=== PATIENT | female | born 1985 | race Caucasian/White ===

== ENCOUNTER 2016-04-24 19:15 | Emergency (ER) | payer OTHER ==
[2016-04-24 19:36] VITALS: BP 105/71; PULSE 78; TEMP 98; BMI 18.9
--- NOTE | 2016-04-24 19:55 | PDOC ---
History of Present Illness - History of Present Illness Initial Comments: 04/24/16 20:38 The patient is a 30 year old 8 week female with a past medical hx of Endometriosis, celiac, GERD, asthma, and anxiety who presents to the ED complaining of nausea and vomiting. The patient states she is experiencing associated vaginal bleeding and constipation. She states she has not seen her OB /EYELET MAKER for this . The patient denies fever, chills The patient denies diarrhea The patient denies chest pain, SOB Allergies:NKDA Social:No tobacco use reported PCP: Dr. Dorman Surgical: Intussusception <Savanna Tompkins - Last Filed: 04/24/16 22:59> <Jaky Hanson - Last Filed: 04/24/16 23:18> - General Chief Complaint: Vaginal Bleeding Stated Complaint: VAGINAL BLEEDING/8 WKS Time Seen by Provider: 04/24/16 19:54 Past History <Savanna Tompkins - Last Filed: 04/24/16 22:59> - Past Medical History Anemia: Yes Asthma: Yes Diabetes: No GI Disorders: Yes (irritable bowel syndrome) Disorders: Yes (endometriosis) HTN: No Hypercholesterolemia: No Psychiatric Problems: Yes (ANXIETY.) Suicide Attempt (Hx): No - Surgical History Abdominal Surgery: Yes (intecessuption) Appendectomy: Yes - Reproductive History Endometriosis: Yes - Immunization History Td Vaccination: No Immunization Up to Date: Yes - Psycho/Social/Smoking Cessation Hx Anxiety: Yes Suicidal Ideation: No Smoking Status: Yes Smoking History: Current every day smoker Have you smoked in the past 12 months: No Number of Cigarettes Smoked Daily: 5 Information on smoking cessation initiated: Yes 'Breaking Loose' booklet given: 04/24/16 Hx Alcohol Use: No Drug/Substance Use Hx: No Substance Use Type: None Hx Substance Use Treatment: No <Jaky Hanson - Last Filed: 04/24/16 23:18> - Past Medical History Allergies/Adverse Reactions: Allergies Allergy/AdvReac Type Severity Reaction Status Date / Time No Known Allergies Allergy Verified 04/24/16 19:30 Home Medications: Ambulatory Orders Paroxetine HCl [Paxil -] 40 mg PO DAILY 10/29/13 Ondansetron [Zofran -] 8 mg PO TID 02/10/14 Alprazolam [Xanax] 2 mg PO TID 12/29/14 Oxycodone HCl/Acetaminophen [Percocet 10-325 mg Tablet] 1 - 2 tab PO QID PRN Metoclopramide HCl [Reglan -] 10 mg PO TID #21 tablet 05/23/15 Albuterol Sulfate Inhaler - [Ventolin HFA Inhaler -] 1 - 2 inh PO QID PRN #1 inhaler 05/27/15 Magnesium Oxide [Mag-Ox -] 400 mg PO BID #20 tablet 04/11/16 Nicotine Patch [Nicoderm Patch -] 21 mg TD DAILY #30 patch 04/11/16 Cephalexin Monohydrate [Keflex -] 500 mg PO BID #10 capsule 04/24/16 Abd/GI Specific PMHX - Complaint Specific PMHX Irritable Bowel Synd (IBS): Yes <Jaky Hanson - Last Filed: 04/24/16 23:18> Review of Systems - Review of Systems Able to Perform ROS?: Yes Comments:: 04/24/16 20:38 CONSTITUTIONAL: Absent: fever, chills, diaphoresis, generalized weakness, malaise, loss of appetite HEENT: Absent: rhinorrhea, nasal congestion, throat pain, throat swelling, difficulty swallowing, mouth swelling, ear pain, eye pain, visual Changes CARDIOVASCULAR: Absent: chest pain, syncope, palpitations, irregular heart rate, lightheadedness , peripheral edema RESPIRATORY: Absent: cough, shortness of breath, dyspnea with exertion, orthopnea, wheezing, stridor, hemoptysis GASTROINTESTINAL: +nausea, vomiting, constipation. Absent: abdominal pain, abdominal distension, diarrhea, melena, hematochezia GENITOURINARY +vaginal bleeding: Absent: dysuria, frequency, urgency, hesitancy, hematuria, flank pain, genital pain MUSCULOSKELETAL: Absent: myalgia, arthralgia, joint swelling SKIN: Absent: rash, itching, pallor HEMATOLOGIC/IMMUNOLOGIC: Absent: easy bleeding, easy bruising, lymphadenopathy, frequent infections ENDOCRINE: Absent: unexplained weight gain, unexplained weight loss, heat intolerance, cold intolerance NEUROLOGIC: Absent: headache, focal weakness or paresthesias, dizziness, unsteady gait, seizure, mental status changes, bladder or bowel incontinence PSYCHIATRIC: Absent: anxiety, depression, suicidal or homicidal ideation, hallucinations <Savanna Tompkins - Last Filed: 04/24/16 22:59> *Physical Exam - Vital Signs Last Vital Signs Temp Pulse Resp BP Pulse Ox 98 F 78 18 105/71 100 04/24/16 19:31 04/24/16 19:31 04/24/16 19:31 04/24/16 19:31 04/24/16 19:31 - Physical Exam Comments: 04/24/16 22:59 GENERAL: Well developed, well nourished. Awake and alert. No acute distress. HEENT: Normocephalic, atraumatic. PERRLA, EOMI. No conjunctival pallor. Sclera are non- icteric. Moist mucous membranes. Oropharynx is clear. NECK: Supple. Full ROM. No JVD. Carotid pulses 2+ and symmetric, without bruits. No thyromegaly. No lymphadenopathy. CARDIOVASCULAR: Regular rate and rhythm. No murmurs, rubs, or gallops. Distal pulses are 2+ and symmetric. PULMONARY: No evidence of respiratory distress. Lungs clear to auscultation bilaterally. No wheezing, rales or rhonchi. ABDOMINAL: Soft. Non-tender. Non-distended. No rebound or guarding. No organomegaly. Normoactive bowel sounds. MUSCULOSKELETAL Normal range of motion at all joints. No bony deformities or tenderness. No CVA tenderness. EXTREMITIES: No cyanosis. No clubbing. No edema. No calf tenderness. SKIN: Warm and dry. Normal capillary refill. No rashes. No jaundice. NEUROLOGICAL: Alert, awake, appropriate. Cranial nerves 2-12 intact. No deficits to light touch and temperature in face, upper extremities and lower extremities. No motor deficits in the in face, upper extremities and lower extremities. Normoreflexic in the upper and lower extremities. Normal speech. PSYCHIATRIC: Cooperative. Good eye contact. Appropriate mood and affect. <Savanna Tompkins - Last Filed: 04/24/16 22:59> - Vital Signs Last Vital Signs Temp Pulse Resp BP Pulse Ox 98 F 78 18 105/71 100 04/24/16 19:31 04/24/16 19:31 04/24/16 19:31 04/24/16 19:31 04/24/16 19:31 <Jaky Hanson - Last Filed: 04/24/16 23:18> ED Treatment Course - LABORATORY CBC & Chemistry Diagram: 04/24/16 20:00 04/24/16 20:00 - ADDITIONAL ORDERS Additional order review: Laboratory Results 04/24/16 20:10 Urine Color Yellow Urine Appearance Slcloudy Urine pH 5.0 Ur Specific Barton 1.024 Urine Protein 1+ H Urine Glucose (UA) Negative Urine Ketones Negative Urine Blood 3+ H Urine Nitrite Negative Urine Bilirubin Negative Urine Urobilinogen Negative Ur Leukocyte Esterase Negative Urine RBC 2557 Urine WBC 18 Ur Epithelial Cells Moderate Urine Mucus Rare 04/24/16 20:00 RBC 4.40 MCV 73.4 L MCHC 31.7 L RDW 19.6 H MPV 8.5 Neutrophils % 55.5 D Lymphocytes % 35.2 D Monocytes % 7.3 Eosinophils % 1.7 Basophils % 0.3 - Medications Given in the ED: ED Medications Discontinued Medications Generic Name Dose Route Start Last Admin Trade Name Freq PRN Reason Stop Dose Admin Ondansetron HCl 4 mg 04/24/16 20:04 04/24/16 20:13 Zofran Injection IVPUSH 04/24/16 20:05 4 mg ONCE ONE Administration <Savanna Tompkins - Last Filed: 04/24/16 22:59> - LABORATORY CBC & Chemistry Diagram: 04/24/16 20:00 04/24/16 20:00 <Jaky Hanson - Last Filed: 04/24/16 23:18> Medical Decision Making - Medical Decision Making 04/24/16 23:17 IV IUP 8 weeks 2 days, heart rate 160 <Jaky Hanson - Last Filed: 04/24/16 23:18> *DC/Admit/Observation/Transfer - Attestations Scribe Attestion: 04/24/16 20:39 Documentation prepared by Savanna Tompkins, acting as medical secretary for Jaky Hanson MD/DO. 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
[2016-04-24] MEDS ORDERED: SODIUM CHLORIDE 1,000 ML IV STA (20:03)
[2016-04-24] MEDS ORDERED: ONDANSETRON 4 MG/2 ML VIAL IVPUSH ONE (20:04)
[2016-04-24 20:20] LABS: BASOPHIL 0.3 % (0-2.0); EOSINOPHIL 1.7 % (0-4.5); MCH 23.3 pg (25.7-33.7); MCHC 31.7 g/dl (32.0-36.0); MEAN CELL VOLUME 73.4 fl (80-96); MEAN PLT VOLUME 8.5 fl (7.5-11.1); NEUTROPHILS 55.5 % (42.8-82.8); PLATELET COUNT 181 K/MM3 (134-434); RDW 19.6 % (11.6-15.6); WHITE BLOOD COUNT 6.7 K/mm3 (4.0-10.0)
[2016-04-24 20:30] LABS: URINE APPEARANCE SLCLOUDY; URINE BILIRUBIN NEGATIVE (NEGATIVE); URINE COLOR YELLOW; URINE GLUCOSE (UA) NEGATIVE (NEGATIVE); URINE KETONE NEGATIVE (NEGATIVE); URINE LEUK ESTERASE NEGATIVE (NEGATIVE); URINE NITRITE NEGATIVE (NEGATIVE); URINE UROBILINOGEN NEGATIVE E.U./dl (0.2-1.0)
[2016-04-24 20:31] LABS: URINE BLOOD 3+ (NEGATIVE); URINE PROTEIN 1+ (NEGATIVE)
[2016-04-24 20:34] LABS: URINE MUCUS RARE; URINE RBC 2557 /hpf (0-3); URINE WBC 18 /hpf (3-5)
[2016-04-24 20:58] LABS: ALBUMIN 4.1 g/dl (3.4-5.0); ANION GAP 7 (8-16); CALCIUM 9.1 mg/dL (8.5-10.1); CO2 26 mmol/L (21-32); CREATININE 0.7 mg/dL (0.55-1.02); GLUCOSE,RANDOM 73 mg/dL (74-106); SGOT/AST 14 U/L (15-37); SGPT/ALT 18 U/L (12-78); TOT PROT 7.6 g/dl (6.4-8.2)
[2016-04-24 21:03] LABS: ALK PHOS 45 U/L (45-117); BILIRUBIN,TOTAL 0.2 mg/dL (0.2-1.0)
[2016-04-24] MEDS ORDERED: ACETAMINOPHEN 1000 MG/100 ML VIAL (NON FORMULARY) IVPB ONE (21:58)
== END 2016-04-24 23:19 | disposition home or self-care (01) ==
LOC: JER 19:15
PROC: 3E033GC Introduction of Other Therapeutic Substance into Peripheral Vein, Percutaneous Approach (ICD-10-PCS; principal; 2016-04-24)
PROC: 3E0337Z Introduction of Electrolytic and Water Balance Substance into Peripheral Vein, Percutaneous Approach (ICD-10-PCS; 2016-04-24)
DX: O20.0 Threatened abortion (principal); Z3A.08 8 weeks gestation of pregnancy; K90.0 Celiac disease; K21.9 Gastro-esophageal reflux disease without esophagitis; J45.909 Unspecified asthma, uncomplicated; F41.9 Anxiety disorder, unspecified; K58.9 Irritable bowel syndrome, unspecified; F17.210 Nicotine dependence, cigarettes, uncomplicated
CPT/HCPCS: 36415; 76801-TC; 80053; 81003; 81015; 84702; 85025; 86850; 86900; 86901; 96361; 96374; 96375; 99282-25

== ENCOUNTER 2016-05-17 19:08 | Emergency (ER) | payer OTHER ==
[2016-05-17 19:28] VITALS: BP 92/64; PULSE 96; TEMP 98.3; BMI 19.1
--- NOTE | 2016-05-17 20:11 | PDOC ---
History of Present Illness - General History Source: Patient Exam Limitations: No Limitations - History of Present Illness Initial Comments: 05/17/16 20:38 The patient is a 30 year old female (/A1), with a significant past medical history of anemia(approximately 4 blood transfusions), asthma, irritable bowel syndrome, endometriosis, and anxiety, who presents to the emergency department complaining of decreased appetite, generalized weakness, and lethargy for approximately 1 week. The patient reports she had a spontaneous about 2.5 weeks ago. She states her bleeding has decreased during the past couple of days and is minimal today. The patient reports she is more concerned that she has not been eating well since her . She states she has been feeling dizzy, but denies fever, chills, cough, or headache. She states she went to her PCP, Dr. Dorman, for these symptoms, after which she was referred to the ED for further evaluation. She reports she has been feeling nauseous, but states this is part of her baseline. The patient denies any vomiting, diarrhea, constipation , or changes in urination patterns. The patient denies chest pain, diaphoresis, palpitations, or shortness of breath. The patient denies any recent travel or sick contacts. Allergies: None reported. Past Surgical History: Intecessuption and Appendectomy Social History: Current everyday smoker (3 cigarettes per day). Denies alcohol or drug use. PCP: Dr. Marcellus Dorman <Anastasia Glover - Last Filed: 05/17/16 21:43> - General History Source: Patient <Chris Ko - Last Filed: 05/17/16 23:08> - General Chief Complaint: Blood Transfusion Stated Complaint: WEAKNESS Time Seen by Provider: 05/17/16 20:00 Past History <Anastasia Glover - Last Filed: 05/17/16 21:43> - Past Medical History Anemia: Yes Asthma: Yes Diabetes: No GI Disorders: Yes (irritable bowel syndrome) Disorders: Yes (endometriosis) HTN: No Hypercholesterolemia: No Psychiatric Problems: Yes (ANXIETY.) Suicide Attempt (Hx): No - Surgical History Abdominal Surgery: Yes (intecessuption) Appendectomy: Yes - Reproductive History (#): 5 Para: 3 Endometriosis: Yes Therapeutic (s) & number: Yes Spontaneous : 1 - Immunization History Td Vaccination: No Immunization Up to Date: Yes - Psycho/Social/Smoking Cessation Hx Anxiety: Yes Suicidal Ideation: No Smoking Status: Yes Smoking History: Current every day smoker Have you smoked in the past 12 months: No Number of Cigarettes Smoked Daily: 3 Information on smoking cessation initiated: No 'Breaking Loose' booklet given: 04/19/16 Hx Alcohol Use: No Drug/Substance Use Hx: No Substance Use Type: None Hx Substance Use Treatment: No <Chris Ko - Last Filed: 05/17/16 23:08> - Past Medical History Allergies/Adverse Reactions: Allergies Allergy/AdvReac Type Severity Reaction Status Date / Time No Known Allergies Allergy Verified 05/17/16 19:25 Home Medications: Ambulatory Orders Paroxetine HCl [Paxil -] 40 mg PO DAILY 10/29/13 Ondansetron [Zofran -] 8 mg PO TID 02/10/14 Alprazolam [Xanax] 2 mg PO TID 12/29/14 Oxycodone HCl/Acetaminophen [Percocet 10-325 mg Tablet] 1 - 2 tab PO QID PRN Metoclopramide HCl [Reglan -] 10 mg PO TID #21 tablet 05/23/15 Albuterol Sulfate Inhaler - [Ventolin HFA Inhaler -] 1 - 2 inh PO QID PRN #1 inhaler 05/27/15 Magnesium Oxide [Mag-Ox -] 400 mg PO BID #20 tablet 04/11/16 Review of Systems - Review of Systems Able to Perform ROS?: Yes Comments:: 05/17/16 20:39 CONSTITUTIONAL: Present: +decreased appetite, +generalized weakness, +lethargy Absent: fever, no chills EYES: Absent: visual changes ENT: Absent: ear pain, no sore throat CARDIOVASCULAR: Absent: chest pain, no palpitations RESPIRATORY: Absent: cough, no SOB GI: Absent: abdominal pain, no nausea, no vomiting, no constipation, no diarrhea GENITOURINARY: Absent: dysuria, no frequency, no hematuria MUSKULOSKELETAL: Absent: back pain, no arthralgia, no myalgia SKIN: Absent: rash NEURO: Absent: headache <Glover,Giomilsy - Last Filed: 05/17/16 21:43> *Physical Exam - Vital Signs Last Vital Signs Temp Pulse Resp BP Pulse Ox 98.3 F 96 H 16 92/64 98 05/17/16 19:26 05/17/16 19:26 05/17/16 19:26 05/17/16 19:26 05/17/16 19:26 - Physical Exam Comments: 05/17/16 20:40 GENERAL: Well-appearing, well-nourished. No apparent distress. HEENT: Normocephalic, atraumatic. PERRL, EOM intact. CARDIOVASCULAR: Normal S1, S2. Regular rate and rhythm. PULMONARY: Clear to auscultation bilaterally. ABDOMEN: +Slight tenderness to palpation in suprapubic area. Non-distended EXTREMITIES: Normal ROM in all four extremities. No gross deformities. SKIN: Warm, dry. No rash NEUROLOGICAL: No focal neurological deficits. <Anastasia Glover - Last Filed: 05/17/16 21:43> - Vital Signs Last Vital Signs Temp Pulse Resp BP Pulse Ox 98.3 F 96 H 16 92/64 98 05/17/16 19:26 05/17/16 19:26 05/17/16 19:26 05/17/16 19:26 05/17/16 19:26 <Chris Ko - Last Filed: 05/17/16 23:08> ED Treatment Course - LABORATORY CBC & Chemistry Diagram: 05/17/16 20:20 05/17/16 20:20 <Anastasia Glover - Last Filed: 05/17/16 21:43> - LABORATORY CBC & Chemistry Diagram: 05/17/16 20:20 05/17/16 22:10 <Chris Ko - Last Filed: 05/17/16 23:08> Medical Decision Making - Medical Decision Making 05/17/16 21:43 First call placed to Dr. Dorman at 21:43. Awaiting call back. <Anastasia Glover - Last Filed: 05/17/16 21:43> - Medical Decision Making 05/17/16 23:07 Dr. Ko: The scribe's documentation has been prepared under my direction and personally reviewed by me in its entirery. I confirm that the note above accurately reflects all work, treatment, procedures, and medical decision making performed by me. Patient's H&H is stable. Patient will be discharged to follow-up with her primary care physician <Chris Ko - Last Filed: 05/17/16 23:08> *DC/Admit/Observation/Transfer - Attestations Scribe Attestion: 05/17/16 20:40 Documentation prepared by Anastasia Glover, acting as medical insurance claims specialist for Chris Ko DO. <Anastasia Glover - Last Filed: 05/17/16 21:43> - Discharge Dispostion Admit: No <Chris Ko - Last Filed: 05/17/16 23:08> Diagnosis at time of Disposition: Fatigue Qualifiers: Encounter type: initial encounter - Discharge Dispostion Disposition: HOME Condition at time of disposition: Stable - Referrals Referrals: Marcellus Dorman MD [Staff Physician] - - Patient Instructions Printed Discharge Instructions: DI for Fatigue
[2016-05-17] MEDS ORDERED: ONDANSETRON 4 MG/2 ML VIAL IVPUSH STA (20:12)
[2016-05-17] MEDS ORDERED: SODIUM CHLORIDE 1,000 ML IV STA (20:12)
[2016-05-17] MEDS ORDERED: ACETAMINOPHEN 325 MG TABLET (FP) PO ONE (20:46)
[2016-05-17 21:20] LABS: BASOPHIL 0.8 % (0-2.0); EOSINOPHIL 4.6 % (0-4.5); MCH 24.1 pg (25.7-33.7); MEAN CELL VOLUME 75.4 fl (80-96); MEAN PLT VOLUME 8.7 fl (7.5-11.1); NEUTROPHILS 43.6 % (42.8-82.8); PLATELET COUNT 167 K/MM3 (134-434); RDW 19.9 % (11.6-15.6); WHITE BLOOD COUNT 4.7 K/mm3 (4.0-10.0)
[2016-05-17 21:32] LABS: INR 1.12 (0.82-1.09); PROTHROMBIN TIME (PATIENT) 12.4 SEC (9.98-11.88)
[2016-05-17 22:56] LABS: ALBUMIN 3.3 g/dl (3.4-5.0); ALK PHOS 58 U/L (45-117); ANION GAP 7 (8-16); BILIRUBIN,TOTAL 0.2 mg/dL (0.2-1.0); CALCIUM 7.9 mg/dL (8.5-10.1); CO2 26 mmol/L (21-32); CREATININE 0.6 mg/dL (0.55-1.02); GLUCOSE,RANDOM 74 mg/dL (74-106); SGOT/AST 19 U/L (15-37); SGPT/ALT 21 U/L (12-78); TOT PROT 5.9 g/dl (6.4-8.2)
[2016-05-17] MEDS ORDERED: CALCIUM CARBONATE 650 MG TABLET PO STA (23:05)
== END 2016-05-17 23:25 | disposition home or self-care (01) ==
LOC: JER 19:08
PROC: 3E033GC Introduction of Other Therapeutic Substance into Peripheral Vein, Percutaneous Approach (ICD-10-PCS; principal; 2016-05-17)
DX: R53.83 Other fatigue (principal); F41.9 Anxiety disorder, unspecified; J45.909 Unspecified asthma, uncomplicated; K58.9 Irritable bowel syndrome, unspecified; F17.210 Nicotine dependence, cigarettes, uncomplicated
CPT/HCPCS: 36415; 80053; 85025; 85610; 86850; 86900; 86901; 99284-25

== ENCOUNTER 2016-08-26 15:48 | Emergency (ER) | payer OTHER ==
[2016-08-26 15:55] VITALS: TEMP 98.2; BMI 23.0
[2016-08-26] MEDS ORDERED: ONDANSETRON 4 MG/2 ML VIAL IVPUSH ONE (16:52)
[2016-08-26 16:53] LABS: BASOPHIL 1.2 % (0-2.0); EOSINOPHIL 4.7 % (0-4.5); MCH 23.3 pg (25.7-33.7); MEAN CELL VOLUME 72.7 fl (80-96); MEAN PLT VOLUME 8.2 fl (7.5-11.1); NEUTROPHILS 53.4 % (42.8-82.8); PLATELET COUNT 245 K/MM3 (134-434); RDW 17.2 % (11.6-15.6); WHITE BLOOD COUNT 6.9 K/mm3 (4.0-10.0)
[2016-08-26 16:59] LABS: URINE APPEARANCE CLEAR; URINE BILIRUBIN NEGATIVE (NEGATIVE); URINE BLOOD NEGATIVE (NEGATIVE); URINE COLOR YELLOW; URINE GLUCOSE (UA) NEGATIVE (NEGATIVE); URINE KETONE NEGATIVE (NEGATIVE); URINE NITRITE NEGATIVE (NEGATIVE); URINE PROTEIN NEGATIVE (NEGATIVE); URINE UROBILINOGEN NEGATIVE E.U./dl (0.2-1.0)
[2016-08-26 17:00] LABS: URINE LEUK ESTERASE 1+ (NEGATIVE)
[2016-08-26 17:01] LABS: URINE RBC 1 /hpf (0-3); URINE WBC 1 /hpf (3-5)
[2016-08-26 17:23] LABS: ALBUMIN 3.7 g/dl (3.4-5.0); ANION GAP 7 (8-16); BILIRUBIN,TOTAL 0.2 mg/dL (0.2-1.0); CALCIUM 8.5 mg/dL (8.5-10.1); CO2 25 mmol/L (21-32); COCKROFT - GAULT 107.3975; CREATININE 0.7 mg/dL (0.55-1.02); GLUCOSE,RANDOM 100 mg/dL (74-106); SGOT/AST 17 U/L (15-37); SGPT/ALT 17 U/L (12-78); TOT PROT 7.3 g/dl (6.4-8.2)
[2016-08-26 17:24] LABS: ALK PHOS 64 U/L (45-117)
--- NOTE | 2016-08-26 18:33 | PDOC ---
History of Present Illness <Jaky Hanson - Last Filed: 08/26/16 18:34> - General History Source: Patient Exam Limitations: No Limitations - History of Present Illness Initial Comments: 08/26/16 18:48 The patient is a 30 year old female with a significant past medical history of endometriosis, celiac disease, GERD, asthma, and anxiety who presents to the ED with complaint of fatigue, lightheadedness, and generalized weakness. Patient presents today with generalized weakness and unable to hold anything down. Patient also reports rectal swelling and bleeding from hemorrhoids. Patient notes that she feels that her hemorrhoids are infected. Patient states that she just finished course of abx for UTI. LMP end of the month. The patient denies fever, chills The patient denies diarrhea The patient denies chest pain, SOB Allergies:NKDA Social:No tobacco use reported PCP: Dr. Dorman Surgical: Intussusception <Adriana Mcfarland - Last Filed: 08/26/16 18:54> - General Chief Complaint: Pain Stated Complaint: FATIGUE, DIZZINESS Time Seen by Provider: 08/26/16 16:33 Past History - Past Medical History Anemia: Yes Asthma: Yes Diabetes: No GI Disorders: Yes (irritable bowel syndrome) Disorders: Yes (endometriosis) HTN: No Hypercholesterolemia: No Psychiatric Problems: Yes (ANXIETY.) Suicide Attempt (Hx): No - Surgical History Abdominal Surgery: Yes (intecessuption) Appendectomy: Yes - Reproductive History (#): 5 Para: 3 Endometriosis: Yes Therapeutic (s) & number: Yes Spontaneous : 1 - Immunization History Td Vaccination: No Immunization Up to Date: Yes - Psycho/Social/Smoking Cessation Hx Anxiety: No Suicidal Ideation: No Smoking Status: Yes Smoking History: Current every day smoker Have you smoked in the past 12 months: No Number of Cigarettes Smoked Daily: 20 Information on smoking cessation initiated: No 'Breaking Loose' booklet given: 04/19/16 Hx Alcohol Use: No Drug/Substance Use Hx: No Substance Use Type: None Hx Substance Use Treatment: No <Jaky Hanson - Last Filed: 08/26/16 18:34> <Adriana Mcfarland - Last Filed: 08/26/16 18:54> - Past Medical History Allergies/Adverse Reactions: Allergies Allergy/AdvReac Type Severity Reaction Status Date / Time No Known Allergies Allergy Verified 08/26/16 15:55 Home Medications: Ambulatory Orders Paroxetine HCl [Paxil -] 40 mg PO DAILY 10/29/13 Ondansetron [Zofran -] 8 mg PO TID 02/10/14 Alprazolam [Xanax] 2 mg PO TID 12/29/14 Oxycodone HCl/Acetaminophen [Percocet 10-325 mg Tablet] 1 - 2 tab PO QID PRN Metoclopramide HCl [Reglan -] 10 mg PO TID #21 tablet 05/23/15 Albuterol Sulfate Inhaler - [Ventolin HFA Inhaler -] 1 - 2 inh PO QID PRN #1 inhaler 05/27/15 Magnesium Oxide [Mag-Ox -] 400 mg PO BID #20 tablet 04/11/16 Dibucaine 1% Top/Rectal Oint [Nupercainal (NF) -] 1 applic RC ASDIR #1 tube 11/05 Hydrocortisone Acetate [Anusol Hc Suppository -] 25 mg RC BID #14 supp.rect 11/05 Hydrocortisone Acetate [Anusol Hc Suppository -] 25 mg RC BID #14 supp.rect 11/05 Review of Systems - Review of Systems Able to Perform ROS?: Yes Comments:: 08/26/16 18:48 CONSTITUTIONAL: Present: generalized weakness. Absent: fever, chills, diaphoresis, malaise, loss of appetite HEENT: Absent: rhinorrhea, nasal congestion, throat pain, throat swelling, difficulty swallowing, mouth swelling, ear pain, eye pain, visual Changes CARDIOVASCULAR: Absent: chest pain, syncope, palpitations, irregular heart rate, peripheral edema RESPIRATORY: Absent: cough, dyspnea with exertion, orthopnea, wheezing, stridor, hemoptysis GASTROINTESTINAL: Present: vomiting, hemorrhoids Absent: abdominal pain, abdominal distension, nausea, diarrhea, constipation, melena, hematochezia GENITOURINARY: Absent: dysuria, frequency, urgency, hesitancy, hematuria, flank pain, genital pain MUSCULOSKELETAL: Absent: myalgia, arthralgia, joint swelling SKIN: Present: rash Absent: itching, pallor HEMATOLOGIC/IMMUNOLOGIC: Absent: easy bleeding, easy bruising, lymphadenopathy, frequent infections ENDOCRINE: Absent: unexplained weight gain, unexplained weight loss, heat intolerance, cold intolerance NEUROLOGIC: Present: lightheadedness Absent: headache, focal weakness or paresthesias, dizziness, unsteady gait, seizure, mental status changes, bladder or bowel incontinence PSYCHIATRIC: Present: anxiety Absent: depression, suicidal or homicidal ideation, hallucinations. <Adriana Mcfarland - Last Filed: 08/26/16 18:54> *Physical Exam - Vital Signs Last Vital Signs Temp Pulse Resp BP Pulse Ox 98.2 F 101 H 20 112/71 95 08/26/16 15:50 08/26/16 15:50 08/26/16 15:50 08/26/16 15:50 08/26/16 15:50 <ValentinJaky Zee - Last Filed: 08/26/16 18:34> - Vital Signs Last Vital Signs Temp Pulse Resp BP Pulse Ox 98.2 F 89 18 116/70 98 08/26/16 15:50 08/26/16 18:39 08/26/16 18:39 08/26/16 18:39 08/26/16 18:39 - Physical Exam Comments: 08/26/16 18:50 GENERAL: +Afebrile, +anxious. Well developed, well nourished. Awake and alert. No acute distress. HEENT: Normocephalic, atraumatic. PERRLA, EOMI. No conjunctival pallor. Sclera are non- icteric. Moist mucous membranes. Oropharynx is clear. NECK: Supple. Full ROM. No JVD. Carotid pulses 2+ and symmetric, without bruits. No thyromegaly. No lymphadenopathy. CARDIOVASCULAR: Regular rate and rhythm. No murmurs, rubs, or gallops. Distal pulses are 2+ and symmetric. PULMONARY: No evidence of respiratory distress. Lungs clear to auscultation bilaterally. No wheezing, rales or rhonchi. ABDOMINAL: Soft. Non-tender. Non-distended. No rebound or guarding. No organomegaly. Normoactive bowel sounds. MUSCULOSKELETAL Normal range of motion at all joints. No bony deformities or tenderness. No CVA tenderness. EXTREMITIES: No cyanosis. No clubbing. No edema. No calf tenderness. SKIN: +Pale. Warm and dry. Normal capillary refill. No rashes. No jaundice. NEUROLOGICAL: Alert, awake, appropriate. Cranial nerves 2-12 intact. No deficits to light touch and temperature in face, upper extremities and lower extremities. No motor deficits in the in face, upper extremities and lower extremities. Normoreflexic in the upper and lower extremities. Normal speech. Toes are down- going bilaterally. Gait is normal without ataxia. PSYCHIATRIC: Cooperative. Good eye contact. Appropriate mood and affect. Rectal Exam: +3 hemorrhoids 1 cm <Adriana Mcfarland - Last Filed: 08/26/16 18:54> ED Treatment Course - LABORATORY CBC & Chemistry Diagram: 08/26/16 16:40 08/26/16 16:40 - ADDITIONAL ORDERS Additional order review: Laboratory Results 08/26/16 08/26/16 08/26/16 16:40 16:40 16:40 Sodium 137 Potassium 4.0 Chloride 105 Carbon Dioxide 25 Anion Gap 7 L BUN 10 D Creatinine 0.7 Creat Clearance w eGFR > 60 Random Glucose 100 D Calcium 8.5 Total Bilirubin 0.2 AST 17 ALT 17 Alkaline Phosphatase 64 Total Protein 7.3 D Albumin 3.7 Urine Color Yellow Urine Appearance Clear Urine pH 5.0 Urine Protein Negative Urine Glucose (UA) Negative Urine Ketones Negative Urine Blood Negative Urine Nitrite Negative Urine Bilirubin Negative Urine Urobilinogen Negative Ur Leukocyte Esterase 1+ H Urine RBC 1 Urine WBC 1 Ur Epithelial Cells Few Urine HCG, Qual Negative Blood Type O POSITIVE Antibody Screen Negative 08/26/16 16:40 RBC 3.76 MCV 72.7 L MCHC 32.0 RDW 17.2 H D MPV 8.2 Neutrophils % 53.4 D Lymphocytes % 31.2 D Monocytes % 9.5 Eosinophils % 4.7 H Basophils % 1.2 - Medications Given in the ED: ED Medications Discontinued Medications Generic Name Dose Route Start Last Admin Trade Name Freq PRN Reason Stop Dose Admin Ondansetron HCl 4 mg 08/26/16 16:52 08/26/16 16:52 Zofran Injection IVPUSH 08/26/16 16:53 4 mg NOW ONE Administration <Jaky Hanson - Last Filed: 08/26/16 18:34> - LABORATORY CBC & Chemistry Diagram: 08/26/16 16:40 08/26/16 16:40 - ADDITIONAL ORDERS Additional order review: Laboratory Results 08/26/16 08/26/16 08/26/16 16:40 16:40 16:40 Sodium 137 Potassium 4.0 Chloride 105 Carbon Dioxide 25 Anion Gap 7 L BUN 10 D Creatinine 0.7 Creat Clearance w eGFR > 60 Random Glucose 100 D Calcium 8.5 Total Bilirubin 0.2 AST 17 ALT 17 Alkaline Phosphatase 64 Total Protein 7.3 D Albumin 3.7 Urine Color Yellow Urine Appearance Clear Urine pH 5.0 Urine Protein Negative Urine Glucose (UA) Negative Urine Ketones Negative Urine Blood Negative Urine Nitrite Negative Urine Bilirubin Negative Urine Urobilinogen Negative Ur Leukocyte Esterase 1+ H Urine RBC 1 Urine WBC 1 Ur Epithelial Cells Few Urine HCG, Qual Negative Blood Type O POSITIVE Antibody Screen Negative 08/26/16 16:40 RBC 3.76 MCV 72.7 L MCHC 32.0 RDW 17.2 H D MPV 8.2 Neutrophils % 53.4 D Lymphocytes % 31.2 D Monocytes % 9.5 Eosinophils % 4.7 H Basophils % 1.2 - Medications Given in the ED: ED Medications Discontinued Medications Generic Name Dose Route Start Last Admin Trade Name Freq PRN Reason Stop Dose Admin Ondansetron HCl 4 mg 08/26/16 16:52 08/26/16 16:52 Zofran Injection IVPUSH 08/26/16 16:53 4 mg NOW ONE Administration <Adriana Mcfarland - Last Filed: 08/26/16 18:54> *DC/Admit/Observation/Transfer <Jaky Hanson - Last Filed: 08/26/16 18:34> - Attestations Scribe Attestion: 08/26/16 18:54 Documentation prepared by LAUREN Perez, acting as medical intern for Jaky Hanson MD. <Adriana Mcfarland - Last Filed: 08/26/16 18:54> Diagnosis at time of Disposition: External hemorrhoid Anemia Qualifiers: Anemia type: unspecified type Qualified Code(s): D64.9 - Anemia, unspecified Vomiting Qualifiers: Vomiting type: unspecified Vomiting Intractability: non-intractable Nausea presence: without nausea Qualified Code(s): R11.11 - Vomiting without nausea - Discharge Dispostion Disposition: HOME - Prescriptions Prescriptions: Hydrocortisone Acetate [Anusol Hc Suppository -] 25 mg RC BID #14 supp.rect Hydrocortisone Acetate [Anusol Hc Suppository -] 25 mg RC BID #14 supp.rect Dibucaine 1% Top/Rectal Oint [Nupercainal (NF) -] 1 applic RC ASDIR #1 tube - Referrals Referrals: Marcellus Dorman MD [Primary Care Provider] - - Patient Instructions Printed Discharge Instructions: DI for Iron Deficiency Anemia-Adult, DI for Hemorrhoids Additional Instructions: please roll picker your medications at the [facility] pharmacy Please follow up with Dr Marcellus Dorman this week
[2016-08-26 18:41] VITALS: BP 116/70; PULSE 89
== END 2016-08-26 18:40 | disposition home or self-care (01) ==
LOC: JER 15:48
PROC: 3E033GC Introduction of Other Therapeutic Substance into Peripheral Vein, Percutaneous Approach (ICD-10-PCS; principal; 2016-08-26)
DX: D64.9 Anemia, unspecified (principal); K64.4 Residual hemorrhoidal skin tags; K21.9 Gastro-esophageal reflux disease without esophagitis; J45.909 Unspecified asthma, uncomplicated; F41.9 Anxiety disorder, unspecified; K90.0 Celiac disease
CPT/HCPCS: 36415; 80053; 81003; 81015; 84703; 85025; 86850; 86900; 86901; 96374; 99283-25

== ENCOUNTER 2016-08-27 14:17 | Emergency (ER) | payer OTHER ==
[2016-08-27 14:36] VITALS: BP 134/62; PULSE 91; TEMP 98.4; BMI 22.1
[2016-08-27] MEDS ORDERED: LIDOCAINE HCL 2% JELLY (30 ML/TUBE) TP ONE (15:16)
--- NOTE | 2016-08-27 15:17 | PDOC ---
History of Present Illness - General History Source: Patient, Old Records Exam Limitations: No Limitations - History of Present Illness Initial Comments: 08/27/16 15:43 The patient is a 30 year old female presenting with her partner, with a significant past medical history of IBS, endometriosis, celiac disease, GERD, anemia, asthma, anxiety and Hemorrhoids, who presents to the emergency department with painful hemrrhoids for the past 4 days. She describes the pain as ranging from moderate to severe but has been worsening over the past few days , without radiation. She notes that the pain is exacerbated when the she sits on her behind. Pt states she is on percocet for pain control but denies recent constipation. The patient was seen in the ED yesterday for the same complaint, was treated and discharged same day after improvement of symptoms. She states that she has had hemorrhoids in the past but never this painful. The patient denies chest pain, shortness of breath, headache and dizziness. Denies fever, chills, nausea, vomit, diarrhea and constipation. Denies dysuria, frequency, urgency and hematuria. Allergies: None Past surgical history: Intussusception, appendectomy Social history: Cigarette use (20 daily). No alcohol or drug use reported PMD - Dr. Dorman <Chris Orellana - Last Filed: 08/27/16 15:46> <Bobby Garcia - Last Filed: 08/27/16 16:37> - General Chief Complaint: Hemorrhoids Stated Complaint: hemorrhoids Time Seen by Provider: 08/27/16 15:04 Past History <Chris Orellana - Last Filed: 08/27/16 15:46> - Past Medical History Anemia: Yes Asthma: Yes Diabetes: No GI Disorders: Yes (irritable bowel syndrome) Disorders: Yes (endometriosis) HTN: No Hypercholesterolemia: No Psychiatric Problems: Yes (ANXIETY.) Suicide Attempt (Hx): No Other medical history: hemorrhoids - Surgical History Abdominal Surgery: Yes (intecessuption) Appendectomy: Yes - Reproductive History (#): 5 Para: 3 Endometriosis: Yes Therapeutic (s) & number: Yes Spontaneous : 1 - Immunization History Td Vaccination: No Immunization Up to Date: Yes - Psycho/Social/Smoking Cessation Hx Anxiety: No Suicidal Ideation: No Smoking Status: Yes Smoking History: Current every day smoker Have you smoked in the past 12 months: Yes Number of Cigarettes Smoked Daily: 20 Information on smoking cessation initiated: No 'Breaking Loose' booklet given: 04/19/16 Hx Alcohol Use: No Drug/Substance Use Hx: No Substance Use Type: None Hx Substance Use Treatment: No <Bobby Garcia - Last Filed: 08/27/16 16:37> - Past Medical History Allergies/Adverse Reactions: Allergies Allergy/AdvReac Type Severity Reaction Status Date / Time No Known Allergies Allergy Verified 08/27/16 14:30 Home Medications: Ambulatory Orders Paroxetine HCl [Paxil -] 40 mg PO HS 10/29/13 Ondansetron [Zofran -] 8 mg PO TID 02/10/14 Alprazolam [Xanax] 2 mg PO TID 12/29/14 Oxycodone HCl/Acetaminophen [Percocet 10-325 mg Tablet] 1 - 2 tab PO QID PRN Metoclopramide HCl [Reglan -] 10 mg PO TID #21 tablet 05/23/15 Albuterol Sulfate Inhaler - [Ventolin HFA Inhaler -] 1 - 2 inh PO QID PRN #1 inhaler 05/27/15 Magnesium Oxide [Mag-Ox -] 400 mg PO BID #20 tablet 04/11/16 Dibucaine 1% Top/Rectal Oint [Nupercainal (NF) -] 1 applic RC ASDIR #1 tube 11/05 Hydrocortisone Acetate [Anusol Hc Suppository -] 25 mg RC BID #14 supp.rect 11/05 Abd/GI Specific PMHX - Complaint Specific PMHX Irritable Bowel Synd (IBS): Yes <Bobby Garcia - Last Filed: 08/27/16 16:37> Review of Systems - Review of Systems Able to Perform ROS?: Yes Comments:: 08/27/16 15:43 CONSTITUTIONAL: No reported: Fever, Chills, Diaphoresis, Generalized Weakness, Malaise, Loss of Appetite GASTROINTESTINAL: Reported: Rectal pain/hemorroids No reported: Abdominal pain, Abdominal Distension, Nausea, Vomiting, Diarrhea, Constipation, Melena, Hematochezia GENITOURINARY: No reported: Dysuria, Frequency, Urgency, Hesitancy, Flank Pain, Genital Pain SKIN: Reported: Painful external hemorrhoids No reported: Rash, Itching, Pallor HEMEATOLOGIC/IMMUNOLOGIC: No reported: Easy Bleeding, Easy Bruising, Lymphadenopathy, Frequent infections ENDOCRINE: No reported: Unexplained Weight Gain, Unexplained Weight Loss, Heat Intolerance , Cold Intolerance <Chris Orellana - Last Filed: 08/27/16 15:46> *Physical Exam - Vital Signs Last Vital Signs Temp Pulse Resp BP Pulse Ox 98.4 F 91 H 18 134/62 100 08/27/16 14:32 08/27/16 14:32 08/27/16 14:32 08/27/16 14:32 08/27/16 14:32 - Physical Exam Comments: 08/27/16 15:43 GENERAL: The patient is awake, alert, and fully oriented, Nontoxic - in no acute distress. HEAD: Normocephalic, atraumatic. EYES: extraocular movements intact, sclera anicteric, conjunctiva clear. ENT: Normal voice, Moist mucous membranes. NECK: Normal range of motion, supple LUNGS: Breath sounds equal, clear to auscultation bilaterally. No wheezes, no rhonchi, no rales. HEART: Regular rate and rhythm, without murmur, rub or gallop. ABDOMEN: Soft, nontender, normoactive bowel sounds. No guarding, no rebound.No CVA tenderness RECTAL: external hemorroids present, tender to palpation, but no evidence of thrombosis, unable to visulize fissures due to pt not tolerating exam. EXTREMITIES: Normal range of motion, no edema. No clubbing or cyanosis. No cords, erythema, or tenderness. NEUROLOGICAL: No facial assymetry, Normal speech, PSYCH: Normal mood, normal affect. SKIN: Warm, Dry, normal turgor, <Chris Orellana - Last Filed: 08/27/16 15:46> - Vital Signs Last Vital Signs Temp Pulse Resp BP Pulse Ox 98.4 F 91 H 18 134/62 100 08/27/16 14:32 08/27/16 14:32 08/27/16 14:32 08/27/16 14:32 08/27/16 14:32 <Bobby Garcia - Last Filed: 08/27/16 16:37> ED Treatment Course - Medications Given in the ED: ED Medications Discontinued Medications Generic Name Dose Route Start Last Admin Trade Name Evette PRN Reason Stop Dose Admin Lidocaine HCl 1 applic 08/27/16 15:16 08/27/16 15:38 Xylocaine 2% Jelly TP 08/27/16 15:17 1 cartridge ONCE ONE Administration <Chris Orellana - Last Filed: 08/27/16 15:46> Medical Decision Making - Medical Decision Making 08/27/16 15:46 Dr. Dorman was consulted regarding the patient at 3:17pm [phone] <Chris Orellana - Last Filed: 08/27/16 15:46> - Medical Decision Making 08/27/16 15:27 30y F sent to the ED by PMD for evaluation of persistent pain on her hemorroids and concerned it may be thrombosed. on exam, the pt does have some external hemorroids that are pink, no massess or signs of thrombosed hemorroid. suspect possible fissure. will give topical lidocain will manage her pain and have her fu with dr. Lafleur tomorrow A portion of this note was documented by scribe services under my direction. I have reviewed the details of the note, within reason, and agree with the documentation with the following case summary and management plan written by me 08/27/16 16:30 pt feeling improved socorro dc the pt with fu with surgery return precautions were discussed I discussed the physical exam findings, ancillary test results and final diagnoses with the patient. I answered all of the patient's questions. The patient was satisfied with the care received and felt comfortable with the discharge plan and treatment plan. The patient will call their primary care physician within 24 hours to arrange follow-up and will return to the Emergency Department with any new, persistent or worsening symptoms. <Bobby Garcia - Last Filed: 08/27/16 16:37> *DC/Admit/Observation/Transfer - Attestations Scribe Attestion: 08/27/16 15:43 Documentation prepared by Chris Orellana, acting as medical equipment sales for Bobby Garcia MD <Chris Orellana - Last Filed: 08/27/16 15:46> - Discharge Dispostion Admit: No <Bobby Garcia - Last Filed: 08/27/16 16:37> Diagnosis at time of Disposition: External hemorrhoid - Discharge Dispostion Disposition: HOME Condition at time of disposition: Improved - Referrals Referrals: Marcellus Dorman MD [Primary Care Provider] - Kyle Lafleur MD [Staff Physician] - - Patient Instructions Printed Discharge Instructions: DI for Hemorrhoids Additional Instructions: Return to the emergency department immediately with ANY new, persistent or worsening symptoms including any fevers, nausea/vomting, or any other conerns. Avoid taking your percocet as that will make you constipated and make your hemorroids worse. EAt lots of vegetables. Use the lidocaine as prescribed. You MUST call and follow up with Dr. Lafleur tomorrow for further evaluation of your symptoms. Results were discussed with you. Please make sure your doctor reviews the results of your emergency evaluation. Print Language: GEORGIAN
[2016-08-27] MEDS ORDERED: LIDOCAINE HCL 2% JELLY 10 ML CARTRIDGE ONE (16:30)
[2016-08-27] MEDS ORDERED: LIDOCAINE HCL 2% JELLY 10 ML CARTRIDGE PR ONE (16:30)
== END 2016-08-27 16:50 | disposition home or self-care (01) ==
LOC: JER 14:17
DX: K64.4 Residual hemorrhoidal skin tags (principal); D64.9 Anemia, unspecified; J45.909 Unspecified asthma, uncomplicated; F41.9 Anxiety disorder, unspecified; F17.210 Nicotine dependence, cigarettes, uncomplicated
CPT/HCPCS: 99282-25

== ENCOUNTER 2016-10-14 23:03 | Emergency (ER) | payer OTHER ==
[2016-10-14 23:09] VITALS: BP 100/51; PULSE 80; TEMP 97.9; BMI 23.0
--- NOTE | 2016-10-14 23:42 | PDOC ---
History of Present Illness - General Chief Complaint: Respiratory Stated Complaint: CHEST PAIN Time Seen by Provider: 10/14/16 23:17 History Source: Patient Exam Limitations: No Limitations - History of Present Illness Initial Comments: 10/15/16 00:33 The patient is a 30 year old female presenting with her fiance due to shortness of breath, cough, chest tightness and chest pain She states that she has noted asthma exacerbation for the past 3-4 days (no prior intubations, pt states she is sensitive to albuterol and steroids) She has noted chest tightness, cough No fevers or chills No palpitations She notes chest pain mostly when she coughs She ran out of her zofran and feels nauseous No diarrhea Diffuse body aches No ill contacts No recent travel PMH: Endometrisosi, IBS, Asthma Allergies: None Past surgical history: Intussusception, appendectomy Social history: Cigarette use (20 daily). No alcohol or drug use reported PMD - Dr. Dorman GENERAL/CONSTITUTIONAL: No: fever, chills, weakness, loss of appetite. HEAD, EYES, EARS, NOSE AND THROAT: No: change in vision, ear pain, discharge, sore throat, throat swelling. CARDIOVASCULAR: No: chest pain, lightheadedness, palpitations, syncope RESPIRATORY: No: cough, shortness of breath, wheezing, hemoptysis, stridor. GASTROINTESTINAL: No: nausea, vomiting, diarrhea, abdominal cramping, rectal bleeding, constipation. GENITOURINARY: No: dysuria, hematuria, frequency, urgency, flank pain. MUSCULOSKELETAL: No: back pain, neck pain, joint pain, muscle swelling or pain SKIN AND BREASTS: No: lesions, pallor, rash or easy bruising. NEUROLOGIC: No: headache, vertigo, paresthesias, weakness ENDOCRINE: No: unexplained weight gain or loss HEMATOLOGIC/LYMPHATIC: No: anemia, easy bleeding, swelling nodes. GENERAL: The patient is in no acute distress. HEAD: Normal with no signs of trauma. EYES: PERRLA, EOMI, sclera anicteric, conjunctiva clear. ENT: Ears normal, nares patent, oropharynx clear without exudates. Moist mucous membranes. NECK: Normal range of motion, supple without lymphadenopathy, JVD, or masses. LUNGS: (+) expiratory wheezing and rhonchi, R>L HEART:Regular rate and rhythm, normal S1 and S2 without murmur, rub or gallop. ABDOMEN: Soft, nontender, normoactive bowel sounds. No guarding, no rebound. No masses palpable. EXTREMITIES: Normal range of motion, no edema. No clubbing or cyanosis. No erythema, or tenderness. NEUROLOGICAL: Cranial nerves II through XII grossly intact. Normal speech. No focal neurological deficits. MUSCULOSKELETAL: Back non-tender to palpation, no CVA tenderness SKIN: Warm, Dry, normal turgor, no rashes or lesions noted. Past History - Past Medical History Allergies/Adverse Reactions: Allergies Allergy/AdvReac Type Severity Reaction Status Date / Time No Known Allergies Allergy Verified 10/14/16 23:09 Home Medications: Ambulatory Orders Paroxetine HCl [Paxil -] 40 mg PO HS 10/29/13 Ondansetron [Zofran -] 8 mg PO TID 02/10/14 Alprazolam [Xanax] 2 mg PO TID 12/29/14 Oxycodone HCl/Acetaminophen [Percocet 10-325 mg Tablet] 1 - 2 tab PO QID PRN Metoclopramide HCl [Reglan -] 10 mg PO TID #21 tablet 05/23/15 Albuterol Sulfate Inhaler - [Ventolin HFA Inhaler -] 1 - 2 inh PO QID PRN #1 inhaler 05/27/15 Magnesium Oxide [Mag-Ox -] 400 mg PO BID #20 tablet 04/11/16 Dibucaine 1% Top/Rectal Oint [Nupercainal (NF) -] 1 applic RC ASDIR #1 tube 11/05 Hydrocortisone Acetate [Anusol Hc Suppository -] 25 mg RC BID #14 supp.rect 11/05 Docusate Sodium [Colace -] 100 mg PO BID #14 capsule 08/27/16 Albuterol 2.5/Ipratropium 0.5 [Duoneb -] 1 neb NEB TID PRN #30 vial 10/15/16 Azithromycin [Zithromax 250mg Tablets -] 250 mg PO UTDICT #6 tab 10/15/16 Methylprednisolone [Medrol Dose Ángel] 4 mg PO ASDIR #21 tablet 10/15/16 Anemia: Yes Asthma: Yes Diabetes: No GI Disorders: Yes (irritable bowel syndrome) Disorders: Yes (endometriosis) HTN: No Hypercholesterolemia: No Psychiatric Problems: Yes (ANXIETY.) Suicide Attempt (Hx): No - Surgical History Abdominal Surgery: Yes (intecessuption) Appendectomy: Yes - Reproductive History (#): 5 Para: 3 Endometriosis: Yes Therapeutic (s) & number: Yes Spontaneous : 1 - Immunization History Td Vaccination: No Immunization Up to Date: Yes - Psycho/Social/Smoking Cessation Hx Anxiety: No Suicidal Ideation: No Smoking Status: Yes Smoking History: Current every day smoker Have you smoked in the past 12 months: Yes Number of Cigarettes Smoked Daily: 20 Information on smoking cessation initiated: No 'Breaking Loose' booklet given: 04/19/16 Hx Alcohol Use: No Drug/Substance Use Hx: No Substance Use Type: None Hx Substance Use Treatment: No *Physical Exam - Vital Signs Last Vital Signs Temp Pulse Resp BP Pulse Ox 97.9 F 80 18 100/51 98 10/14/16 23:05 10/14/16 23:05 10/14/16 23:05 10/14/16 23:05 10/14/16 23:05 Heart Score/ECG Review #1 ECG reviewed & interpreted by me at: 04:06 10/15/16 04:06 Twelve-lead EKG was performed and reviewed by me. There is normal sinus rhythm with a slightly bradycardiac rate of 55 bpm. The axis is normal. The intervals are abnormal - pr:230ms, QRS:86ms, QTc:422ms. There are no ST elevations or depressions. T wave inversion v2, v3, III similar to prior 10/15/16 04:09 ED Treatment Course - LABORATORY CBC & Chemistry Diagram: 10/15/16 01:40 10/15/16 01:40 Medical Decision Making - Medical Decision Making 10/14/16 23:42 10/15/16 00:36 Will do labs Will do CXR Will re assess DD: Asthma exacerbation, bronchitis, pneumonia, PE unlikely, 10/15/16 03:50 CXR as read by me is negative Laboratory Tests 08/26/16 08/26/16 10/15/16 16:40 16:40 01:40 WBC 6.9 D 5.6 Hgb 8.8 L 8.7 L Hct 27.4 L 28.3 L Plt Count 245 D 145 D BUN 10 D Creatinine 0.7 Troponin I Albumin Serum , Qual 10/15/16 10/15/16 10/15/16 01:40 01:40 01:40 WBC Hgb Hct Plt Count BUN 6 L D Creatinine 0.6 Troponin I < 0.02 Albumin 3.7 Serum , Qual Negative Will discharge to home PERC score negative Will discharge to home on Medrol dose pack, Duo Nebs, Abx Pt asked to follow up with PMD in 48 hours Pt asked to return to the ER for any other concerns or complaints 10/15/16 03:53 Clinical impression: Bronchitis *DC/Admit/Observation/Transfer Diagnosis at time of Disposition: Acute bronchitis Qualifiers: Bronchitis organism: unspecified organism Qualified Code(s): J20.9 - Acute bronchitis, unspecified - Discharge Dispostion Disposition: HOME Condition at time of disposition: Stable Admit: No - Prescriptions Prescriptions: Albuterol 2.5/Ipratropium 0.5 [Duoneb -] 1 neb NEB TID PRN #30 vial PRN Reason: Wheezing Methylprednisolone [Medrol Dose Ángel] 4 mg PO ASDIR #21 tablet Azithromycin [Zithromax 250mg Tablets -] 250 mg PO UTDICT #6 tab - Referrals Referrals: Marcellus Dorman MD [Primary Care Provider] - - Patient Instructions Printed Discharge Instructions: DI for Acute Bronchitis Additional Instructions: Thank you for coming in to the ER today Please take medications as prescribed Please take your temperature, monitor yourself for fevers Please return to the ER for any fevers, chills, weakness, shortness of breath, persistent wheezing Please follow up with your primary care physician in 48 hours
[2016-10-15] MEDS ORDERED: ALBUTEROL SO4 0.083% IH SOL 2.5 MG/3 ML VIAL.NEB. NEB ONE ×2 (00:30→00:42)
[2016-10-15] MEDS ORDERED: morphine CARPU-JECT 4 MG/1 ML DISP.SYRIN IVPUSH ONE (00:57)
[2016-10-15] MEDS ORDERED: morphine CARPU-JECT 4 MG/1 ML DISP.SYRIN ONE (01:46)
[2016-10-15 01:52] LABS: BASOPHIL 1.2 % (0-2.0); EOSINOPHIL 5.5 % (0-4.5); MCH 22.3 pg (25.7-33.7); MCHC 30.8 g/dl (32.0-36.0); MEAN CELL VOLUME 72.5 fl (80-96); MEAN PLT VOLUME 8.2 fl (7.5-11.1); NEUTROPHILS 39.7 % (42.8-82.8); PLATELET COUNT 145 K/MM3 (134-434); RDW 18.4 % (11.6-15.6); WHITE BLOOD COUNT 5.6 K/mm3 (4.0-10.0)
[2016-10-15 02:22] LABS: ALBUMIN 3.7 g/dl (3.4-5.0); ALK PHOS 58 U/L (45-117); ANION GAP 7 (8-16); BILIRUBIN,TOTAL 0.2 mg/dL (0.2-1.0); CALCIUM 8.5 mg/dL (8.5-10.1); CO2 27 mmol/L (21-32); CREATININE 0.6 mg/dL (0.55-1.02); GLUCOSE,RANDOM 97 mg/dL (74-106); SGOT/AST 21 U/L (15-37); SGPT/ALT 14 U/L (12-78); TOT PROT 6.9 g/dl (6.4-8.2)
[2016-10-15 02:53] LABS: TROPONIN I < 0.02 ng/ml (0.00-0.05)
--- NOTE | 2016-10-15 12:52 | EKG ---
Test Reason : Blood Pressure : / mmHG Vent. Rate : 055 BPM Atrial Rate : 055 BPM P-R Int : 230 ms QRS Dur : 086 ms QT Int : 442 ms P-R-T Axes : 028 074 016 degrees QTc Int : 422 ms SINUS BRADYCARDIA WITH 1ST DEGREE A-V BLOCK RSR' OR QR PATTERN IN V1 SUGGESTS RIGHT VENTRICULAR CONDUCTION DELAY OTHERWISE NORMAL ECG WHEN COMPARED WITH ECG OF 10-APR-2016 08:32, [place] INTERVAL HAS INCREASED Confirmed by RUDY PHILIPPE MD ([id number]) on 10/15/2016 12:52:01 PM Referred By: Confirmed By:RUDY PHILIPPE MD
== END 2016-10-15 04:14 | disposition home or self-care (01) ==
LOC: JER 23:03
PROC: 3E0F7GC Introduction of Other Therapeutic Substance into Respiratory Tract, Via Natural or Artificial Opening (ICD-10-PCS; principal; 2016-10-14)
PROC: 3E033NZ Introduction of Analgesics, Hypnotics, Sedatives into Peripheral Vein, Percutaneous Approach (ICD-10-PCS; 2016-10-14)
DX: J20.9 Acute bronchitis, unspecified (principal)
CPT/HCPCS: 36415; 71020-TC; 80053; 82550; 84484; 84703; 85025; 93005; 93010; 94640; 96374; 99283-25

== ENCOUNTER 2016-12-31 18:03 | Emergency (ER) | payer OTHER ==
[2016-12-31 18:09] VITALS: TEMP 98.4; BMI 24.7
--- NOTE | 2016-12-31 20:15 | PDOC ---
Attending Attestation - Resident Resident Name: Luís Kempony - ED Attending Attestation I have performed the following: I have examined & evaluated the patient, The case was reviewed & discussed with the resident, I agree w/resident's findings & plan, Exceptions are as noted - HPI HPI: 01/01/17 03:22 pt p/e complaint nausea,vomiting and weakness - Physicial Exam PE: 01/01/17 03:22 pale 31 yo female oral-multiple grossly carious teeth neck supple Face and upper torso have deep excoriations abd nontender lungs cta b/l cvr [id number] neuro alert and ambulatory,no gross focal deficits - Medical Decision Making 01/01/17 03:25 labs reviewed,pt has long h/o anemia. neg preg test, chemistries unremarkable. pt told to follow up with her acting section chief
[2016-12-31] MEDS ORDERED: ONDANSETRON 4 MG/2 ML VIAL IVPUSH ONE (20:35)
[2016-12-31] MEDS ORDERED: SODIUM CHLORIDE 0.9% 1000 ML INFUS.BAG IV ONE (20:35)
--- NOTE | 2016-12-31 20:35 | PDOC ---
History of Present Illness - General Chief Complaint: Weakness Stated Complaint: SHORTNESS OF BREATH Time Seen by Provider: 12/31/16 20:00 History Source: Patient, Significant Other Exam Limitations: No Limitations - History of Present Illness Initial Comments: 12/31/16 20:34 The patient is a 31F with a PMH of anxiety, anemia, IBS, GERD, endometriosis who presents to the ED with abd pain and weakness complains. The patient states that she's had vomiting, weakness, dizziness x 4 days with diffuse abdominal pain. The patient states that she has leg pain secondary to her sciatica. No dysuria or hematuria. She has not eaten or had anything to drink in 4 days. She' s also complaining of fever, chills, vomiting NBNB, blood in stool, b/l numbness /tingling in feet and fingers. All: none Soc: smokes 1 ppd, occasional drinking, no drugs LMP: november 29 Past History - Past Medical History Allergies/Adverse Reactions: Allergies Allergy/AdvReac Type Severity Reaction Status Date / Time No Known Allergies Allergy Verified 12/31/16 18:09 Home Medications: Ambulatory Orders Paroxetine HCl [Paxil -] 40 mg PO HS 10/29/13 Ondansetron [Zofran -] 8 mg PO TID 02/10/14 Alprazolam [Xanax] 2 mg PO TID 12/29/14 Oxycodone HCl/Acetaminophen [Percocet 10-325 mg Tablet] 1 - 2 tab PO QID PRN Metoclopramide HCl [Reglan -] 10 mg PO TID #21 tablet 05/23/15 Albuterol Sulfate Inhaler - [Ventolin HFA Inhaler -] 1 - 2 inh PO QID PRN #1 inhaler 05/27/15 Magnesium Oxide [Mag-Ox -] 400 mg PO BID #20 tablet 04/11/16 Dibucaine 1% Top/Rectal Oint [Nupercainal (NF) -] 1 applic RC ASDIR #1 tube 11/05 Hydrocortisone Acetate [Anusol Hc Suppository -] 25 mg RC BID #14 supp.rect 11/05 Docusate Sodium [Colace -] 100 mg PO BID #14 capsule 08/27/16 Albuterol 2.5/Ipratropium 0.5 [Duoneb -] 1 neb NEB TID PRN #30 vial 10/15/16 Azithromycin [Zithromax 250mg Tablets -] 250 mg PO UTDICT #6 tab 10/15/16 Methylprednisolone [Medrol Dose Ángel] 4 mg PO ASDIR #21 tablet 10/15/16 Ondansetron [Zofran -] 4 mg PO BID #14 tablet 12/31/16 Anemia: Yes Asthma: Yes Diabetes: No GI Disorders: Yes (irritable bowel syndrome) Disorders: Yes (endometriosis) HTN: No Hypercholesterolemia: No Psychiatric Problems: Yes (ANXIETY.) Suicide Attempt (Hx): No - Surgical History Abdominal Surgery: Yes (intecessuption) Appendectomy: Yes - Reproductive History (#): 5 Para: 3 Endometriosis: Yes Therapeutic (s) & number: Yes Spontaneous : 1 - Immunization History Td Vaccination: No Immunization Up to Date: Yes - Psycho/Social/Smoking Cessation Hx Anxiety: No Suicidal Ideation: No Smoking Status: Yes Smoking History: Current every day smoker Have you smoked in the past 12 months: Yes Number of Cigarettes Smoked Daily: 20 Information on smoking cessation initiated: No 'Breaking Loose' booklet given: 04/19/16 Hx Alcohol Use: No Drug/Substance Use Hx: No Substance Use Type: None Hx Substance Use Treatment: No Review of Systems - Review of Systems Able to Perform ROS?: Yes Is the patient limited Kinyarwanda proficient: No Constitutional: Yes: Chills, Fever, Weakness ABD/GI: Yes: Blood Streaked Bowels, Nausea, Vomiting : No: Burning, Dysuria, Discharge, Hematuria Neurological: Yes: Other (confusion) *Physical Exam - Vital Signs Last Vital Signs Temp Pulse Resp BP Pulse Ox 98.4 F 83 18 96/67 98 12/31/16 18:05 12/31/16 18:05 12/31/16 18:05 12/31/16 18:05 12/31/16 18:05 - Physical Exam General Appearance: Yes: Nourished, Appropriately Dressed, Other (multiple excoriations over face, neck, shoulders, and chest, 2-3 mm in size) HEENT: positive: Normal Voice, Hearing Grossly Normal, Lesions, Glass, Other ( Poor dentition, multiple teeth missing) Respiratory/Chest: positive: Lungs Clear, Normal Breath Sounds. negative: Chest Tender, Respiratory Distress, Stridor, Wheezing Cardiovascular: positive: Regular Rhythm, Regular Rate, S1, S2. negative: Diastolic Murmur, Systolic Murmur Gastrointestinal/Abdominal: positive: Tender, Flat, Soft, Guarding, Tenderness. negative: Distended, Rebound Musculoskeletal: positive: CVA Tenderness (L). negative: CVA Tenderness (R) Extremity: negative: Swelling, Calf Tenderness Integumentary: positive: Dry, Warm Neurologic: positive: pinner printed circuit boards II-XII NML intact, Fully Oriented, Alert, Normal Mood/ Affect, Normal Response, Motor Strength 5/5. negative: EOM Palsy, Facial Droop , Numbness, Sensory Deficit, Finger to Nose, Confused, Disoriented Heart Score/ECG Review - ECG Impressions Comment:: 12/31/16 22:46 1st degree AV block with bradycardia. Unchanged from previous EKG's. ED Treatment Course - LABORATORY CBC & Chemistry Diagram: 12/31/16 21:12 12/31/16 21:12 Medical Decision Making - Medical Decision Making 12/31/16 21:36 Patient is a 31F with a PMH of endometriosis, IBS, asthma, GERD, anxiety who presents with weakness, vomiting. She was with her fiance who has alcohol on his breath. I have suspicion of drug abuse and I ordered basic labs to make sure that the patient's labs are WNL. I will wait for labs to return and reassess. 12/31/16 22:24 Labs WNL. EKG shows 1st degree AV block with bradycardia which is unchanged from previous EKG's. I have advised the patient on following up with PCP within 2-3 days. She agrees. I will prescribe zofran outpatient. *DC/Admit/Observation/Transfer Diagnosis at time of Disposition: Nausea & vomiting Qualifiers: Vomiting type: unspecified Vomiting Intractability: unspecified Qualified Code( s): R11.2 - Nausea with vomiting, unspecified - Discharge Dispostion Disposition: HOME Condition at time of disposition: Stable Admit: No - Prescriptions Prescriptions: Ondansetron [Zofran -] 4 mg PO BID #14 tablet - Referrals Referrals: Marcellus Dorman MD [Primary Care Provider] - - Patient Instructions Printed Discharge Instructions: Nausea (Alternative Therapy), Nausea and Vomiting-Adult Additional Instructions: Please follow up with your primary care doctor in 2-3 days. Please follow up with your mill representative as well. Please return to the ER if symptoms persist, worsen, or if new symptoms arise. Print Language: SERBIAN
[2016-12-31 21:35] LABS: BASOPHIL 2.1 % (0-2.0); EOSINOPHIL 6.1 % (0-4.5); MCH 22.9 pg (25.7-33.7); MEAN CELL VOLUME 71.6 fl (80-96); MEAN PLT VOLUME 8.3 fl (7.5-11.1); NEUTROPHILS 37.8 % (42.8-82.8); PLATELET COUNT 247 K/MM3 (134-434); RDW 17.4 % (11.6-15.6); WHITE BLOOD COUNT 4.6 K/mm3 (4.0-10.0)
[2016-12-31 21:36] LABS: PH,URINE 5.5 (5.0-8.0); URINE APPEARANCE SL CLOUDY; URINE BILIRUBIN NEGATIVE (NEGATIVE); URINE BLOOD NEGATIVE (NEGATIVE); URINE COLOR LT. YELLOW; URINE GLUCOSE (UA) NEGATIVE (NEGATIVE); URINE KETONE NEGATIVE (NEGATIVE); URINE NITRITE NEGATIVE (NEGATIVE); URINE PROTEIN NEGATIVE (NEGATIVE); URINE UROBILINOGEN 0.2 mg/dL (0.2-1.0)
[2016-12-31 22:11] LABS: ALBUMIN 3.7 g/dl (3.4-5.0); ALK PHOS 78 U/L (45-117); ANION GAP 6 (8-16); BILIRUBIN,TOTAL 0.3 mg/dL (0.2-1.0); CO2 27 mmol/L (21-32); CREATININE 0.7 mg/dL (0.55-1.02); GLUCOSE,RANDOM 90 mg/dL (74-106); SGOT/AST 19 U/L (15-37); SGPT/ALT 16 U/L (12-78); TOT PROT 7.3 g/dl (6.4-8.2)
[2016-12-31 22:18] LABS: URINE MARIJUANA THC NEGATIVE ng/ml (CUTOFF=50)
[2016-12-31 22:51] VITALS: BP 104/77; PULSE 63
--- NOTE | 2017-01-01 11:21 | EKG ---
Test Reason : Blood Pressure : / mmHG Vent. Rate : 062 BPM Atrial Rate : 062 BPM P-R Int : 266 ms QRS Dur : 082 ms QT Int : 460 ms P-R-T Axes : 065 083 032 degrees QTc Int : 466 ms SINUS RHYTHM WITH SINUS ARRHYTHMIA WITH 1ST DEGREE A-V BLOCK RSR' V1-V2 COMPATIBLE WITH INCOMPLETE RBBB SLOW R WAVE PROGRESSION IN RIGHT PRECORDIAL LEADS WHEN COMPARED WITH ECG OF 15-OCT-2016 01:01, NO SIGNIFICANT CHANGE WAS FOUND REPEAT EKG IF CLINICALLY INDICATED Confirmed by STACEY SERRANO MD ([id number]) on 01/01/2017 11:21:04 AM Referred By: Confirmed By:STACEY SERRANO MD
== END 2016-12-31 23:02 | disposition home or self-care (01) ==
LOC: JER 18:03
DX: R11.2 Nausea with vomiting, unspecified (principal); F41.9 Anxiety disorder, unspecified; J45.909 Unspecified asthma, uncomplicated; K21.9 Gastro-esophageal reflux disease without esophagitis
CPT/HCPCS: 36415; 80053; 80307; 81003; 83690; 84703; 85025; 93005; 93010; 99283-25

== ENCOUNTER 2017-02-20 13:23 | Emergency (ER) | payer OTHER ==
[2017-02-20 13:29] VITALS: BP 94/74; PULSE 82; TEMP 97.8; BMI 22.6
[2017-02-20] MEDS ORDERED: ACETAMINOPHEN 500 MG TABLET (FP) PO ONE (15:40)
[2017-02-20] MEDS ORDERED: SODIUM CHLORIDE 1,000 ML IV STA (15:40)
[2017-02-20] MEDS ORDERED: ALBUTEROL SO4 0.083% IH SOL 2.5 MG/3 ML VIAL.NEB. NEB ONE ×2 (15:40→15:45)
[2017-02-20] MEDS ORDERED: ACETAMINOPHEN 325 MG TABLET (FP) ONE (15:46)
--- NOTE | 2017-02-20 16:18 | PDOC ---
History of Present Illness - General Chief Complaint: Shortness of Breath Stated Complaint: SOB, CHEST PRESSURE (PCP SENT) Time Seen by Provider: 02/20/17 15:34 - History of Present Illness Initial Comments: 02/20/17 16:16 "31 year old female, with PMH of asthma, anxiety, anemia, IBS, GERD, and endometriosis, who presents to the emergency room complaining of 3 days of a productive cough with green sputum, chest tightness, and congestion. She states that her chest and back hurt when she coughs. She reports that she is having difficulty sleeping because she is congested and can't breathe comfortably. The patient used a nebulizer treatment at home without relief. Denies recent travel and long car rides. Denies leg swelling or history of DVT. Denies fever, chills , nausea, vomiting. Denies CP/SOB when not coughing. States that her symptoms feel similar to when she was diagnosed with pneumonia in the past. Denies F/C. Allergies: NKDA PCP: Dr. Dorman " Past History - Past Medical History Allergies/Adverse Reactions: Allergies Allergy/AdvReac Type Severity Reaction Status Date / Time No Known Allergies Allergy Verified 02/20/17 14:58 Home Medications: Ambulatory Orders Paroxetine HCl [Paxil -] 40 mg PO HS 10/29/13 Ondansetron [Zofran -] 8 mg PO TID 02/10/14 Alprazolam [Xanax] 2 mg PO TID 12/29/14 Oxycodone HCl/Acetaminophen [Percocet 10-325 mg Tablet] 1 - 2 tab PO QID PRN Metoclopramide HCl [Reglan -] 10 mg PO TID #21 tablet 05/23/15 Albuterol Sulfate Inhaler - [Ventolin HFA Inhaler -] 1 - 2 inh PO QID PRN #1 inhaler 05/27/15 Docusate Sodium [Colace -] 100 mg PO BID #14 capsule 08/27/16 Albuterol 2.5/Ipratropium 0.5 [Duoneb -] 1 neb NEB TID PRN #30 vial 10/15/16 Anemia: Yes Asthma: Yes COPD: No Diabetes: No GI Disorders: Yes (irritable bowel syndrome) Disorders: Yes (endometriosis) HTN: No Hypercholesterolemia: No Psychiatric Problems: Yes (ANXIETY.) - Surgical History Abdominal Surgery: Yes (intecessuption) Appendectomy: Yes - Reproductive History (#): 5 Para: 3 Endometriosis: Yes Therapeutic (s) & number: Yes Spontaneous : 1 - Immunization History Td Vaccination: No Immunization Up to Date: Yes - Suicide/Smoking/Psychosocial Hx Smoking Status: Yes Smoking History: Current every day smoker Have you smoked in the past 12 months: Yes Number of Cigarettes Smoked Daily: 10 Information on smoking cessation initiated: No 'Breaking Loose' booklet given: 04/19/16 Hx Alcohol Use: No Drug/Substance Use Hx: No Substance Use Type: None Hx Substance Use Treatment: No Review of Systems - Review of Systems Comments:: 02/20/17 16:16 "GENERAL/CONSTITUTIONAL: No fever or chills. No weakness. HEAD, EYES, EARS, NOSE AND THROAT: No change in vision. No ear pain or discharge. No sore throat. CARDIOVASCULAR: No chest pain or shortness of breath. RESPIRATORY: +cough, congestion, chest tightness. No wheezing, or hemoptysis. GASTROINTESTINAL: No nausea, vomiting, diarrhea or constipation. GENITOURINARY: No dysuria, frequency, or change in urination. MUSCULOSKELETAL: No joint or muscle swelling or pain. No neck or back pain. SKIN: No rash NEUROLOGIC: No headache, vertigo, loss of consciousness, or change in strength/ sensation. ENDOCRINE: No increased thirst. No abnormal weight change. HEMATOLOGIC/LYMPHATIC: No anemia, easy bleeding, or history of blood clots. ALLERGIC/IMMUNOLOGIC: No hives or skin allergy. " *Physical Exam - Vital Signs Last Vital Signs Temp Pulse Resp BP Pulse Ox 97.8 F 82 20 94/74 100 02/20/17 13:27 02/20/17 13:27 02/20/17 13:27 02/20/17 13:27 02/20/17 13:27 - Physical Exam Comments: 02/20/17 16:17 """GENERAL: Awake, alert, and fully oriented, in no acute distress HEAD: No signs of trauma EYES: PERRLA, EOMI, sclera anicteric, conjunctiva clear ENT: Auricles normal inspection, hearing grossly normal, nares patent, oropharynx clear without exudates. Moist mucosa NECK: Nontender, no stepoffs, Normal ROM, supple, no lymphadenopathy, JVD, or masses LUNGS: Breath sounds equal, clear to auscultation bilaterally. No wheezes, and no crackles HEART: Regular rate and rhythm, normal S1 and S2, no murmurs, rubs or gallops ABDOMEN: Soft, nontender, normoactive bowel sounds. No guarding, no rebound. No masses EXTREMITIES: Normal range of motion, no edema. No clubbing or cyanosis. No cords, erythema, or tenderness NEUROLOGICAL: Cranial nerves II through XII intact. 5/5 strength and sensation in all extremities, Normal speech, normal gait SKIN: Warm, Dry, normal turgor, no rashes or lesions noted. """ ED Treatment Course - LABORATORY CBC & Chemistry Diagram: 02/20/17 16:31 02/20/17 16:31 - ADDITIONAL ORDERS Additional order review: Laboratory Results 02/20/17 15:25 Urine HCG, Qual Negative - RADIOLOGY Radiology Studies Ordered: Category Date Time Status CHEST PA & LAT [RAD] Stat Radiology 02/20/17 15:40 Ordered - Medications Given in the ED: ED Medications Discontinued Medications Generic Name Dose Route Start Last Admin Trade Name Rahulq PRN Reason Stop Dose Admin Acetaminophen 1,000 mg 02/20/17 15:40 02/20/17 16:03 Tylenol - PO 02/20/17 15:41 1,000 mg ONCE ONE Administration Albuterol Sulfate 1 amp 02/20/17 15:40 02/20/17 16:02 Ventolin 0.083% Nebulizer Soln - NEB 02/20/17 15:41 1 amp ONCE ONE Administration Medical Decision Making - Medical Decision Making 02/20/17 16:17 31 F with cough and congestion. Likely viral URI. Lung exam completely clear. Pt with normal vitals. PERC score 0. - CXR to r/o PNA - Labs - Trial of nebulizers 02/20/17 17:34 CXR clear Labs unremarkable. Likely viral URI, will DC home with PMD f/u. I discussed the physical exam findings, ancillary test results and final diagnoses with the patient. I answered all of the patient's questions. The patient was satisfied with the care received and felt comfortable with the discharge plan and treatment plan. The patient agrees to follow up with the primary care physician within 24-72 hours. *DC/Admit/Observation/Transfer Diagnosis at time of Disposition: Viral infection - Discharge Dispostion Disposition: HOME - Patient Instructions Printed Discharge Instructions: DI for Viral Syndrome Additional Instructions: Please understand that no ER visit is complete without re-evaluation. Please call your primary doctor within 24 hours to set up a follow up appointment. If you experience any worsening symptoms, chest pain, shortness of breath, or any other concerning symptoms, return to the ER immediately. - Attestations Physician Attestion: 02/20/17 17:38 I, Dr. Kyle Yanez MD, attest that this document has been prepared under my direction and personally reviewed by me in its entirety. I further attest, that it accurately reflects all work, treatment, procedures and medical decision -making performed by me.
[2017-02-20 16:43] LABS: URINE APPEARANCE CLEAR; URINE BILIRUBIN NEGATIVE (NEGATIVE); URINE BLOOD NEGATIVE (NEGATIVE); URINE COLOR LTYELLOW; URINE GLUCOSE (UA) NEGATIVE (NEGATIVE); URINE KETONE NEGATIVE (NEGATIVE); URINE NITRITE NEGATIVE (NEGATIVE); URINE PROTEIN NEGATIVE (NEGATIVE); URINE UROBILINOGEN NEGATIVE mg/dL (0.2-1.0)
[2017-02-20 16:46] LABS: BASOPHIL 1.2 % (0-2.0); EOSINOPHIL 5.8 % (0-4.5); MCH 23.6 pg (25.7-33.7); MCHC 32.1 g/dl (32.0-36.0); MEAN CELL VOLUME 73.5 fl (80-96); MEAN PLT VOLUME 8.3 fl (7.5-11.1); NEUTROPHILS 36.6 % (42.8-82.8); PLATELET COUNT 192 K/MM3 (134-434); RDW 18.1 % (11.6-15.6); WHITE BLOOD COUNT 4.9 K/mm3 (4.0-10.0)
[2017-02-20 17:18] LABS: ALBUMIN 3.6 g/dl (3.4-5.0); ANION GAP 4 (8-16); BILIRUBIN,TOTAL 0.2 mg/dL (0.2-1.0); CALCIUM 8.6 mg/dL (8.5-10.1); CO2 29 mmol/L (21-32); CREATININE 0.7 mg/dL (0.55-1.02); GLUCOSE,RANDOM 83 mg/dL (74-106); SGOT/AST 18 U/L (15-37); SGPT/ALT 20 U/L (12-78)
[2017-02-20 17:19] LABS: ALK PHOS 73 U/L (45-117)
[2017-02-20 18:06] LABS: URINE LEUK ESTERASE Negative (NEGATIVE)
== END 2017-02-20 17:50 | disposition home or self-care (01) ==
LOC: JER 13:23
PROC: 3E0F7GC Introduction of Other Therapeutic Substance into Respiratory Tract, Via Natural or Artificial Opening (ICD-10-PCS; principal; 2017-02-20)
PROC: 3E0337Z Introduction of Electrolytic and Water Balance Substance into Peripheral Vein, Percutaneous Approach (ICD-10-PCS; 2017-02-20)
DX: B34.9 Viral infection, unspecified (principal)
CPT/HCPCS: 36415; 71020-TC; 80053; 81003; 84703; 85025; 94640; 96360; 99283-25

== ENCOUNTER 2017-03-10 23:14 | Emergency (ER) | payer OTHER ==
[2017-03-10 23:30] VITALS: BP 105/74; PULSE 71; TEMP 98.6; BMI 23.0
[2017-03-10] MEDS ORDERED: SODIUM CHLORIDE 1,000 ML IV STA (23:36)
[2017-03-10] MEDS ORDERED: morphine CARPU-JECT 4 MG/1 ML DISP.SYRIN IVPUSH ONE (23:42)
[2017-03-10] MEDS ORDERED: ONDANSETRON 4 MG/2 ML VIAL IVPUSH ONE (23:42)
--- NOTE | 2017-03-10 23:51 | PDOC ---
History of Present Illness - General Chief Complaint: Pain Stated Complaint: PAIN Time Seen by Provider: 03/10/17 23:23 History Source: Patient Exam Limitations: No Limitations - History of Present Illness Travel History: No Initial Comments: 03/10/17 23:44 31yo Female patient with PmHx: Endometriosis, Anemia, Celiac Disease, IBS, Anxiety, Appendectomy, Intussusception, Hemorrhoids, Small Bowel Resection, Asthma, GERD, presents to ED c/o Abdominal pain that began on Saturday, which worsened tonight. Patient states having a bowel movement and blood with clots came out. She denies back pain, CP, diff breathing, n/v/d, constipation, dysuria , hematuria, or any other complaints at this time. LNMP: 2 Weeks ago. PCP: Dr. Dorman. GI: Dr. Jarquin (no longer a patient due to many missed appointments. Last seen 2014) Timing/Duration: reports: getting worse. denies: constant, changing over time, intermittent, resolved prior to arrival, gone now, other Quality: reports: severe, cramping. denies: mild, moderate, aching, burning, dullness, fullness, sharpness, stabbing, throbbing, other Abdominal Pain Onset Location: reports: generalized abdomen. denies: RUQ, LUQ, RLQ, LLQ, epigastric, periumbilical, suprapubic, flank, unknown, other Pain Radiation: reports: no radiation. denies: RUQ, LUQ, RLQ, LLQ, epigastric, periumbilical, flank, groin, scapula, shoulder, chest, back, other Activities at Onset: reports: no specific activity. denies: none, exertion, emotional upset, rest, sleep, eating, working, sexual intercourse, other Treatment Prior to Arrive: improves with: other (Percocet and Motrin). worse with: analgesics, antacids, cold pack, heat, laxative, enema Past History - Travel Traveled outside of the country in the last 30 days: No Close contact w/someone who was outside of country & ill: No - Past Medical History Allergies/Adverse Reactions: Allergies Allergy/AdvReac Type Severity Reaction Status Date / Time No Known Allergies Allergy Verified 03/10/17 23:28 Home Medications: Ambulatory Orders Paroxetine HCl [Paxil -] 40 mg PO HS 10/29/13 Ondansetron [Zofran -] 8 mg PO TID 02/10/14 Alprazolam [Xanax] 2 mg PO TID 12/29/14 Oxycodone HCl/Acetaminophen [Percocet 10-325 mg Tablet] 1 - 2 tab PO QID PRN Metoclopramide HCl [Reglan -] 10 mg PO TID #21 tablet 05/23/15 Albuterol Sulfate Inhaler - [Ventolin HFA Inhaler -] 1 - 2 inh PO QID PRN #1 inhaler 05/27/15 Docusate Sodium [Colace -] 100 mg PO BID #14 capsule 08/27/16 Albuterol 2.5/Ipratropium 0.5 [Duoneb -] 1 neb NEB TID PRN #30 vial 10/15/16 Anemia: Yes Asthma: Yes COPD: No Diabetes: No GI Disorders: Yes (irritable bowel syndrome) Disorders: Yes (endometriosis) HTN: No Hypercholesterolemia: No Psychiatric Problems: Yes (ANXIETY.) - Surgical History Abdominal Surgery: Yes (intecessuption) Appendectomy: Yes - Reproductive History (#): 5 Para: 3 Endometriosis: Yes Therapeutic (s) & number: Yes Spontaneous : 1 - Immunization History Td Vaccination: No Immunization Up to Date: Yes - Suicide/Smoking/Psychosocial Hx Smoking Status: Yes Smoking History: Current every day smoker Have you smoked in the past 12 months: Yes Number of Cigarettes Smoked Daily: 20 Information on smoking cessation initiated: No 'Breaking Loose' booklet given: 04/19/16 Hx Alcohol Use: No Drug/Substance Use Hx: No Substance Use Type: None Hx Substance Use Treatment: No Abd/GI Specific PMHX - Complaint Specific PMHX Colitis: No Diverticulitis: No Gall Bladder Disease: No GERD: Yes Hepatitis: No Irritable Bowel Synd (IBS): Yes Pancreatitis: No GI Ulcer Disease: No Review of Systems - Review of Systems Able to Perform ROS?: Yes Is the patient limited Citizen [place] proficient: No Constitutional: No: Fever ABD/GI: Yes: Rectal Bleeding, Abdominal cramping (Generalized). No: Constipated , Diarrhea, Nausea, Poor Appetite, Poor Fluid Intake, Vomiting : No: Burning, Dysuria Musculoskeletal: No: Back Pain All Other Systems: Reviewed and Negative *Physical Exam - Vital Signs Last Vital Signs Temp Pulse Resp BP Pulse Ox 98.6 F 71 14 105/74 100 03/10/17 23:28 03/10/17 23:28 03/10/17 23:28 03/10/17 23:28 03/10/17 23:28 - Physical Exam General Appearance: Yes: Nourished, Appropriately Dressed, Apparent Distress, Moderate Distress. No: Mild Distress, Severe Distress Respiratory/Chest: positive: Lungs Clear, Normal Breath Sounds. negative: Chest Tender, Respiratory Distress, Accessory Muscle Use, Labored Respiration, Rapid RR, Decreased Breath Sounds, Paradoxal Breathing, Rhonchi, Stridor, Wheezing Cardiovascular: positive: Regular Rhythm, Regular Rate Gastrointestinal/Abdominal: positive: Tender, Soft, Increased Bowel Sounds, Tenderness (Generalized). negative: Distended, Guarding, Rebound Musculoskeletal: positive: Normal Inspection. negative: CVA Tenderness, Decreased Range of Motion, Vertebral Tenderness Extremity: positive: Normal Capillary Refill, Normal Inspection, Normal Range of Motion. negative: Pedal Edema, Swelling, Calf Tenderness, Erythema, Inflammation Integumentary: positive: Normal Color, Dry, Warm Neurologic: positive: mower sharpener II-XII NML intact, Fully Oriented, Alert, Normal Mood/ Affect, Normal Response, Motor Strength / ED Treatment Course - LABORATORY CBC & Chemistry Diagram: 03/10/17 22:55 03/10/17 22:55 - RADIOLOGY Radiology Studies Ordered: Category Date Time Status ABDOMEN & PELVIS CT WITH CONTR [CT] Stat CT Scan 03/10/17 23:42 Ordered Medical Decision Making - Medical Decision Making 03/11/17 06:33 Patient refuses to give urine at this time. Patient believes that she will be urine tox tested. Patient was reassured this was not the case. She will not give urine. Cat-Scan Unremarkable. Will d/c to home. *DC/Admit/Observation/Transfer Diagnosis at time of Disposition: Left ovarian cyst - Discharge Dispostion Disposition: HOME Condition at time of disposition: Stable Admit: No - Referrals Referrals: Marcellus Dorman MD [Primary Care Provider] - Mehreen Galarza MD [Staff Physician] - Jr Balderas MD [Staff Physician] - - Patient Instructions Printed Discharge Instructions: DI for Ovarian Cyst, DI for Ovarian Cyst Removal Additional Instructions: Follow up with Dr. Balderas (Gastroenterology) regarding abdominal issues, also Follow up with Dr. Galarza ([facility] [employer]) regarding ovarian cyst. Tylenol or Motrin for pain as needed. Follow up with your primary care provider if your need advanced pain management needs. Call to schedule your appointments. I have provided the names and phone number of these specialist on this discharge packet. Print Language: FRENCH - Post Discharge Activity
[2017-03-11] MEDS ORDERED: ONDANSETRON 4 MG/2 ML VIAL ONE (00:03)
[2017-03-11] MEDS ORDERED: morphine SULFATE 4 MG/ML VIAL ONE (00:03)
[2017-03-11 00:05] LABS: BASOPHIL 1.1 % (0-2.0); EOSINOPHIL 4.8 % (0-4.5); MCH 23.6 pg (25.7-33.7); MCHC 31.9 g/dl (32.0-36.0); MEAN CELL VOLUME 73.9 fl (80-96); MEAN PLT VOLUME 7.6 fl (7.5-11.1); PLATELET COUNT 219 K/MM3 (134-434); RDW 19.1 % (11.6-15.6); WHITE BLOOD COUNT 6.3 K/mm3 (4.0-10.0)
[2017-03-11 00:36] LABS: ALBUMIN 3.7 g/dl (3.4-5.0); ALK PHOS 59 U/L (45-117); AMYLASE 47 U/L (25-115); ANION GAP 6 (8-16); BILIRUBIN,TOTAL 0.2 mg/dL (0.2-1.0); CALCIUM 8.5 mg/dL (8.5-10.1); CO2 27 mmol/L (21-32); CREATININE 0.7 mg/dL (0.55-1.02); GLUCOSE,RANDOM 95 mg/dL (74-106); SGOT/AST 18 U/L (15-37); SGPT/ALT 20 U/L (12-78); TOT PROT 7.4 g/dl (6.4-8.2)
== END 2017-03-11 06:51 | disposition home or self-care (01) ==
LOC: JER 23:14
PROC: 3E033GC Introduction of Other Therapeutic Substance into Peripheral Vein, Percutaneous Approach (ICD-10-PCS; principal; 2017-03-10)
PROC: 3E033NZ Introduction of Analgesics, Hypnotics, Sedatives into Peripheral Vein, Percutaneous Approach (ICD-10-PCS; 2017-03-10)
DX: N83.202 Unspecified ovarian cyst, left side (principal); J45.909 Unspecified asthma, uncomplicated; F41.9 Anxiety disorder, unspecified; Z87.19 Personal history of other diseases of the digestive system; F17.210 Nicotine dependence, cigarettes, uncomplicated
CPT/HCPCS: 36415; 74177-TC; 80053; 82150; 82272; 83690; 84703; 85025; 96374; 96375; 99281-25

== ENCOUNTER 2018-01-03 20:17 | Emergency (ER) | payer OTHER ==
--- NOTE | 2018-01-03 20:21 | PDOC ---
Rapid Medical Evaluation Time Seen by Provider: 01/03/18 20:20 Medical Evaluation: Allergies Allergy/AdvReac Type Severity Reaction Status Date / Time No Known Allergies Allergy Verified 03/10/17 23:28 01/03/18 20:20 I have performed a brief in-person evaluation of this patient. The patient presents with a chief complaint of: Pelvic pain x ~1 week. H/o endometriosis, no surgeries, anemia, s/p transfusions, Hgb last month at [facility] ~8 , not transfused, not on iron pill, celiac dze, appy, sciatica, anxiety, smoker Pertinent physical exam findings: stable w/ +ttp diffusely to lower abd I have ordered the following:labs The patient will proceed to the ED for further evaluation. 01/03/18 20:30 Discharge Disposition - Diagnosis Pelvic pain - Referrals - Patient Instructions - Post Discharge Activity
[2018-01-03 20:27] VITALS: TEMP 98.7; BMI 21.6
[2018-01-03 20:57] LABS: BASO % 0.3 % (0-2.0); HEMATOCRIT 25.9 % (32.4-45.2); HEMOGLOBIN 8.2 GM/dL (10.7-15.3); LYMPH % 41.3 % (8-40); MCH 22.5 pg (25.7-33.7); MCHC 31.8 g/dl (32.0-36.0); MEAN CELL VOLUME 70.7 fl (80-96); MEAN PLT VOLUME 7.6 fl (7.5-11.1); NEUT % 42.4 % (42.8-82.8); PLATELET COUNT 377 K/MM3 (134-434); RBC 3.66 M/mm3 (3.60-5.2); RDW 21.6 % (11.6-15.6); WHITE BLOOD COUNT 4.9 K/mm3 (4.0-10.0)
[2018-01-03 21:01] LABS: URINE APPEARANCE CLEAR; URINE BILIRUBIN NEGATIVE (<2.0 mg/dL); URINE COLOR COLORLESS; URINE GLUCOSE (UA) NEGATIVE (NEGATIVE); URINE KETONE NEGATIVE (NEGATIVE); URINE LEUK ESTERASE NEGATIVE (NEGATIVE); URINE NITRITE NEGATIVE (NEGATIVE); URINE PROTEIN NEGATIVE (NEGATIVE); URINE UROBILINOGEN NEGATIVE mg/dL (0.2-1.0)
[2018-01-03 21:18] LABS: ALBUMIN 3.6 g/dl (3.4-5.0); ALK PHOS 87 U/L (45-117); ANION GAP 9 MMOL/L (8-16); BILIRUBIN,TOTAL 0.2 mg/dL (0.2-1.0); BLOOD UREA NITROGEN 5 mg/dL (7-18); CALCIUM 8.7 mg/dL (8.5-10.1); CHLORIDE 101 mmol/L (98-107); CO2 25 mmol/L (21-32); CREATININE 0.7 mg/dL (0.55-1.3); GLUCOSE,RANDOM 125 mg/dL (74-106); POTASSIUM 4.3 mmol/L (3.5-5.1); SGOT/AST 29 U/L (15-37); SGPT/ALT 21 U/L (13-61); SODIUM 135 mmol/L (136-145); TOT PROT 7.2 g/dl (6.4-8.2)
[2018-01-03 21:27] LABS: INR 1.04 (0.83-1.09); PROTHROMBIN TIME (PATIENT) 11.7 SEC (9.7-13.0)
[2018-01-03 21:41] LABS: ANISOCYTOSIS 1+; PLATELET ESTIMATE ADEQUATE
--- NOTE | 2018-01-03 22:19 | PDOC ---
Attending Attestation - HPI HPI: 01/04/18 00:06 The patient is a 32 year old female, with a significant past medical history of endometriosis, celiac, chronic anemia, and sciatica, who presents to the emergency department with, 1 month of fatigue. She also reports several days of diffuse abdominal cramping. She endorses blood streaked diarrhea 2 days ago. Her LMP 08/29/17. Allergies: NKA Primary Care Physician: Dr. Dorman <Nanci Cohen - Last Filed: 01/04/18 00:06> - Resident Resident Name: Wendy Lou - ED Attending Attestation I have performed the following: I have examined & evaluated the patient, The case was reviewed & discussed with the resident, I agree w/resident's findings & plan - Physicial Exam PE: 01/04/18 01:01 Agree with resident exam. Pt is afebrile. No weakness, normal neuro exam, normal color. Pt has no CP and clear lungs; RRR heart. No flank pain and normal abd exam. Pt is concerned that she skipped her menses x 4 months. (She will be advised to follow with [facility]) - Medical Decision Making 01/04/18 01:03 Follow with [facility]. Pt has no GI bleed at this time. Her H+H are stable and she will be asked to follow with PMD. We discussed the importance of a high iron diet. <Bailee Erazo - Last Filed: 01/04/18 01:01> - HPI HPI: 01/04/18 01:21 The patient is a 32-year-old female with past medical history significant for endometriosis, celiac disease and anemia presents to the emergency department with 1 month of fatigue. The patient reports following with PCP who states that the patient has severe anemia. The patient presents with several days of diffuse abdominal pain and weakness. The patient reports her last menstrual cycle was 5 months ago. Denies vaginal bleeding. The patient reports an additional complaint of diarrhea 2 days ago, accompanied with streaks of blood, now resolved. No recent illness or sick contact. No chest pain or shortness of breath. Allergies: NKA Social history: Patient reports current use of cigarettes. No alcohol or recreational use reported. PCP: Dr. Marcellus Dorman - Physicial Exam PE: 01/04/18 01:21 "GENERAL: The patient is awake, alert, and fully oriented, Nontoxic - in no acute distress. HEAD: Normocephalic, atraumatic. EYES: extraocular movements intact, sclera anicteric, conjunctiva clear. ENT: Normal voice, Moist mucous membranes. NECK: Normal range of motion, supple LUNGS: Breath sounds equal, clear to auscultation bilaterally. No wheezes, no rhonchi, no rales. HEART: Regular rate and rhythm, without murmur, rub or gallop. ABDOMEN: Soft, nontender, No guarding, no rebound.No CVA tenderness EXTREMITIES: Normal range of motion, no edema. No cyanosis. No erythema, or tenderness. NEUROLOGICAL: No facial assymetry, Normal speech, PSYCH: Normal mood, normal affect. SKIN: Warm, Dry, normal turgor," - Medical Decision Making 01/04/18 01:21 Documentation prepared by Catalina Jama, acting as medical support assistant for Bailee Erazo MD. <Catalina Jama - Last Filed: 01/04/18 01:21> Attestations - Attestations 01/04/18 00:06 Documentation prepared by Nanci Cohen, acting as medical support assistant for Bailee Erazo MD. <Nanci Cohen - Last Filed: 01/04/18 00:06>
--- NOTE | 2018-01-03 23:00 | PDOC ---
History of Present Illness - General Chief Complaint: Pain Stated Complaint: PCP SENT/WEAKNESS Time Seen by Provider: 01/03/18 20:20 - History of Present Illness Initial Comments: 01/03/18 23:00 32 year old woman with a PMH of endometriosis, celiac dz, chronic anemia, and sciatica who presents with 1 month of fatigue/malaise and several days of diffuse abdominal cramping. She notes she has not had her menses for 5 months and that her LNMP was 08/29/17. She reports blood streaked diarrhea 2 days ago. She states her PCP (Dr. Marcellus Ghotra) told her she had a low hemoglobin. At bedside the patient is not nausea but complains of mild abdominal pain. Last took percocet at 0900 - for sciatica and percocet 01/04/18 00:03 Past History - Past Medical History Allergies/Adverse Reactions: Allergies Allergy/AdvReac Type Severity Reaction Status Date / Time No Known Allergies Allergy Verified 01/03/18 20:24 Home Medications: Ambulatory Orders Paroxetine HCl [Paxil -] 40 mg PO HS 10/29/13 Ondansetron [Zofran -] 8 mg PO TID 02/10/14 Alprazolam [Xanax] 2 mg PO TID 12/29/14 Oxycodone HCl/Acetaminophen [Percocet 10-325 mg Tablet] 1 - 2 tab PO QID PRN Metoclopramide HCl [Reglan -] 10 mg PO TID #21 tablet 05/23/15 Albuterol Sulfate Inhaler - [Ventolin HFA Inhaler -] 1 - 2 inh PO QID PRN #1 inhaler 05/27/15 Albuterol 2.5/Ipratropium 0.5 [Duoneb -] 1 neb NEB TID PRN #30 vial 10/15/16 Docusate Sodium [Colace -] 100 mg PO PRN 01/03/18 Anemia: Yes Asthma: Yes COPD: No Diabetes: No GI Disorders: Yes (irritable bowel syndrome) Disorders: Yes (endometriosis) HTN: No Hypercholesterolemia: No Psychiatric Problems: Yes (ANXIETY.) Other medical history: Ciliac - Surgical History Abdominal Surgery: Yes (intecessuption) Appendectomy: Yes - Reproductive History (#): 5 Para: 3 Endometriosis: Yes Therapeutic (s) & number: Yes Spontaneous : 1 - Immunization History Td Vaccination: No Immunization Up to Date: Yes - Suicide/Smoking/Psychosocial Hx Smoking Status: Yes Smoking History: Never smoked Have you smoked in the past 12 months: Yes Number of Cigarettes Smoked Daily: 20 Information on smoking cessation initiated: No 'Breaking Loose' booklet given: 04/19/16 Hx Alcohol Use: No Drug/Substance Use Hx: No Substance Use Type: None Hx Substance Use Treatment: No *Physical Exam - Vital Signs Last Vital Signs Temp Pulse Resp BP Pulse Ox 98.7 F 97 H 18 100/61 100 01/03/18 20:24 01/03/18 20:24 01/03/18 20:24 01/03/18 20:24 01/03/18 20:24 - Physical Exam Comments: 01/03/18 23:11 unremarkable ED Treatment Course - LABORATORY CBC & Chemistry Diagram: 01/03/18 20:40 01/03/18 20:40 - ADDITIONAL ORDERS Additional order review: Laboratory Results 01/03/18 01/03/18 01/03/18 20:40 20:40 20:40 PT with INR 11.70 INR 1.04 Sodium 135 L Potassium 4.3 Chloride 101 Carbon Dioxide 25 Anion Gap 9 BUN 5 L Creatinine 0.7 Creat Clearance w eGFR > 60 Random Glucose 125 H Calcium 8.7 Total Bilirubin 0.2 AST 29 ALT 21 Alkaline Phosphatase 87 Total Protein 7.2 Albumin 3.6 Serum , Qual Negative Urine Color Urine Appearance Urine pH Ur Specific Driscoll Urine Protein Urine Glucose (UA) Urine Ketones Urine Blood Urine Nitrite Urine Bilirubin Urine Urobilinogen Ur Leukocyte Esterase 01/03/18 20:30 PT with INR INR Sodium Potassium Chloride Carbon Dioxide Anion Gap BUN Creatinine Creat Clearance w eGFR Random Glucose Calcium Total Bilirubin AST ALT Alkaline Phosphatase Total Protein Albumin Serum , Qual Urine Color Colorless Urine Appearance Clear Urine pH 6.0 Ur Specific Driscoll 1.003 Urine Protein Negative Urine Glucose (UA) Negative Urine Ketones Negative Urine Blood Negative Urine Nitrite Negative Urine Bilirubin Negative Urine Urobilinogen Negative Ur Leukocyte Esterase Negative 01/03/18 20:40 RBC 3.66 MCV 70.7 L MCHC 31.8 L RDW 21.6 H MPV 7.6 Neutrophils % 42.4 L Lymphocytes % 41.3 H Monocytes % 7.0 Eosinophils % 9.0 H D Basophils % 0.3 Medical Decision Making - Medical Decision Making 01/03/18 23:11 patient stable in no distress 01/03/18 23:12 stool occult blood: negative 01/04/18 00:23 patient reassessed. stable. feels improved. *DC/Admit/Observation/Transfer Diagnosis at time of Disposition: Fatigue - Discharge Dispostion Disposition: HOME Condition at time of disposition: Stable Decision to Admit order: No - Referrals Referrals: Marcellus Dorman MD [Primary Care Provider] - Jelly Mart MD [Non Staff, Medical] - - Patient Instructions Printed Discharge Instructions: DI for Fatigue Additional Instructions: You were seen in the ED for complaints of weakness. In the ED you were evaluated with labwork. Your results were unremarkable. There does not appear to be an acute need for immediate hospitalization. You are advised to follow up with your primary care physician within 1 week. You were given a referral to obstetrics and gynecology and advised to follow up within 1 week. Please remember to eat iron rich foods such as spinach, potatoes and broccoli. Return to the ED immediately if you experience worsening lightheadedness, fatigue, abdominal pain, headaches, loss of consciousness, chest pain or shortness of breath. - Post Discharge Activity
[2018-01-03] MEDS ORDERED: SODIUM CHLORIDE 1,000 ML IV SCH (23:15)
[2018-01-04 01:07] VITALS: BP 99/70; PULSE 89
== END 2018-01-04 01:00 | disposition home or self-care (01) ==
LOC: JER 20:17
PROC: 3E0337Z Introduction of Electrolytic and Water Balance Substance into Peripheral Vein, Percutaneous Approach (ICD-10-PCS; principal; 2018-01-03)
DX: R53.83 Other fatigue (principal); D64.9 Anemia, unspecified; K58.9 Irritable bowel syndrome, unspecified; K90.0 Celiac disease; N80.9 Endometriosis, unspecified; M54.30 Sciatica, unspecified side
CPT/HCPCS: 36415; 80053; 81003; 82272; 84703; 85025; 85610; 86850; 86900; 86901; 96360; 96361; 99283-25; J7030

== ENCOUNTER 2018-01-22 19:09 | Emergency (ER) | payer OTHER ==
--- NOTE | 2018-01-22 19:23 | PDOC ---
Rapid Medical Evaluation Time Seen by Provider: 01/22/18 19:20 Medical Evaluation: Allergies Allergy/AdvReac Type Severity Reaction Status Date / Time No Known Allergies Allergy Verified 01/03/18 20:24 01/22/18 19:20 I have performed a brief in-person evaluation of this patient. The patient presents with a chief complaint of:shortness of breath, cough , on keflex for resp infection Pertinent physical exam findings:coarse lung sounds with wheezing I have ordered the following:duoneb, urine , CXR The patient will proceed to the ED for further evaluation.
[2018-01-22 19:24] VITALS: BP 124/54; PULSE 88; TEMP 98.2; BMI 21.2
[2018-01-22] MEDS ORDERED: ALBUTEROL SO4 2.5/IPRATROPIUM 0.5 INH SOL 3 ML VIAL.NEB. NEB ONE ×3 (19:40→23:38)
[2018-01-22] MEDS: ALBUTEROL SO4 2.5/IPRATROPIUM 0.5 INH SOL 3 ML VIAL.NEB. NEB SCH ×4 (19:42→21:09)
[2018-01-22] MEDS ORDERED: DEXAMETHASONE LIQUID 0.5 MG/5 ML 240 ML BULK BOTTLE PO ONE (19:55)
[2018-01-22] MEDS ORDERED: DEXAMETHASONE SOD PHOSPHATE 10 MG/1 ML VIAL ONE (20:01)
--- NOTE | 2018-01-22 20:47 | PDOC ---
History of Present Illness - General Chief Complaint: Asthma Stated Complaint: ASTHMA Time Seen by Provider: 01/22/18 19:20 - History of Present Illness Initial Comments: 32-year-old female with history of asthma presents for evaluation of a chronic asthma exacerbation for the last 7 days unrelieved with her home nebulizer and inhaler. 01/22/18 20:45 Past History - Past Medical History Allergies/Adverse Reactions: Allergies Allergy/AdvReac Type Severity Reaction Status Date / Time No Known Allergies Allergy Verified 01/22/18 19:24 Home Medications: Ambulatory Orders Paroxetine HCl [Paxil -] 40 mg PO HS 10/29/13 Alprazolam [Xanax] 2 mg PO TID 12/29/14 Oxycodone HCl/Acetaminophen [Percocet 10-325 mg Tablet] 1 - 2 tab PO QID PRN Albuterol Sulfate Inhaler - [Ventolin HFA Inhaler -] 1 - 2 inh PO QID PRN #1 inhaler 05/27/15 Albuterol 2.5/Ipratropium 0.5 [Duoneb -] 1 neb NEB TID PRN #30 vial 10/15/16 Anemia: Yes Asthma: Yes COPD: No Diabetes: No GI Disorders: Yes (irritable bowel syndrome) Disorders: Yes (endometriosis) HTN: No Hypercholesterolemia: No Psychiatric Problems: Yes (ANXIETY.) - Surgical History Abdominal Surgery: Yes (intecessuption) Appendectomy: Yes - Reproductive History (#): 5 Para: 3 Endometriosis: Yes Therapeutic (s) & number: Yes Spontaneous : 1 - Immunization History Td Vaccination: No Immunization Up to Date: Yes - Suicide/Smoking/Psychosocial Hx Smoking Status: Yes Smoking History: Former smoker Have you smoked in the past 12 months: Yes Number of Cigarettes Smoked Daily: 20 Information on smoking cessation initiated: No 'Breaking Loose' booklet given: 04/19/16 Hx Alcohol Use: No Drug/Substance Use Hx: No Substance Use Type: None Hx Substance Use Treatment: No Review of Systems - Review of Systems Respiratory: Yes: Cough, Shortness of Breath, Wheezing All Other Systems: Reviewed and Negative *Physical Exam - Vital Signs Last Vital Signs Temp Pulse Resp BP Pulse Ox 98.2 F 88 18 124/54 L 99 01/22/18 19:21 01/22/18 19:21 01/22/18 19:21 01/22/18 19:21 01/22/18 19:21 - Physical Exam Comments: HEAD: NC/AT EYES: Conjuntiva clear Ears: Canals and TM's normal NOSE: No d/c THROAT: Moist mucous membrances, oral pharanx clear, uvula midline NECK: Supple without adenopathy CARDIAC: S1 S2 LUNGS: Diffuse expiratory wheezing ABDOMEN: Soft NT ND MS: Full ROM in all joints without edema NEUROLOGIC: No gross sensory or motor deficits, NVID SKIN: Normal color and temperature no lesions or rashes 01/22/18 20:46 ED Treatment Course - ADDITIONAL ORDERS Additional order review: Laboratory Results 01/22/18 19:29 Urine HCG, Qual Negative - RADIOLOGY Radiology Studies Ordered: Category Date Time Status CHEST PA & LAT [RAD] Stat Radiology 01/22/18 19:56 Taken - Medications Given in the ED: ED Medications Discontinued Medications Generic Name Dose Route Start Last Admin Trade Name Freq PRN Reason Stop Dose Admin Albuterol/Ipratropium 1 amp 01/22/18 19:30 01/22/18 20:04 Duoneb - NEB 01/22/18 20:16 1 amp Q15M SASKIA Administration Dexamethasone 10 mg 01/22/18 19:55 01/22/18 20:04 Decadron Liquid - PO 01/22/18 19:56 10 mg ONCE ONE Administration Medical Decision Making - Medical Decision Making 01/22/18 20:46 Chest x-ray is clear questionable COPD 01/22/18 21:10 Any wheezing after the third DuoNeb I will give her 1 more DuoNeb if not cleared and feeling better I will bump her up to the main emergency room. 01/22/18 22:24 No relief after for DuoNeb's. Patient is still wheezing. I will sign patient out to the main emergency room for admission *DC/Admit/Observation/Transfer Diagnosis at time of Disposition: Active asthma - Referrals Referrals: Marcellus Dorman MD [Primary Care Provider] - - Patient Instructions - Post Discharge Activity
[2018-01-22] MEDS ORDERED: SODIUM CHLORIDE 1,000 ML IV STA (22:51)
[2018-01-22] MEDS ORDERED: MAGNESIUM SULF 50% (8.12 MEQ/2 ML-1 GM VIAL) IVPB ONE (22:51)
--- NOTE | 2018-01-22 23:10 | PDOC ---
*Physical Exam - Vital Signs Last Vital Signs Temp Pulse Resp BP Pulse Ox 98.2 F 88 18 124/54 L 99 01/22/18 19:21 01/22/18 19:21 01/22/18 19:21 01/22/18 19:21 01/22/18 19:21 - Physical Exam General Appearance: Yes: Appropriately Dressed Respiratory/Chest: positive: Decreased Breath Sounds Cardiovascular: positive: Regular Rhythm, Regular Rate Gastrointestinal/Abdominal: positive: Normal Bowel Sounds, Soft Extremity: positive: Normal Capillary Refill, Normal Inspection, Normal Range of Motion Integumentary: positive: Normal Color, Dry, Warm Neurologic: positive: Fully Oriented, Alert, Normal Mood/Affect ED Treatment Course - LABORATORY CBC & Chemistry Diagram: 01/22/18 22:52 01/22/18 22:52 - ADDITIONAL ORDERS Additional order review: Laboratory Results 01/22/18 19:29 Urine HCG, Qual Negative - Medications Given in the ED: ED Medications Discontinued Medications Generic Name Dose Route Start Last Admin Trade Name Freq PRN Reason Stop Dose Admin Albuterol/Ipratropium 1 amp 01/22/18 19:30 01/22/18 21:09 Duoneb - NEB 01/22/18 20:16 1 amp Q15M SASKIA Administration Dexamethasone 10 mg 01/22/18 19:55 01/22/18 20:04 Decadron Liquid - PO 01/22/18 19:56 10 mg ONCE ONE Administration Medical Decision Making - Medical Decision Making 01/22/18 23:09 magnesium *DC/Admit/Observation/Transfer Diagnosis at time of Disposition: Active asthma - Discharge Dispostion Disposition: HOME - Prescriptions Prescriptions: Albuterol Sulfate Inhaler - [Ventolin HFA Inhaler -] 1 - 2 inh PO QID PRN #1 inhaler PRN Reason: Shortness Of Breath - Referrals Referrals: Marcellus Dorman MD [Primary Care Provider] - Call tomorrow - Patient Instructions Printed Discharge Instructions: Asthma -- Adult Additional Instructions: USE ALBUTEROL EVERY 4 HOURS NEEDED FOR PAIN FOLLOW UP WITH YOUR DOCTOR SOON POSSIBLE. - Post Discharge Activity Forms/Work/School Notes: Back to Work
[2018-01-22] MEDS ORDERED: MAGNESIUM SULF 50% (8.12 MEQ/2 ML-1 GM VIAL) ONE (23:38)
[2018-01-22 23:59] LABS: EOS % 0.6 % (0-4.5); HEMATOCRIT 25.8 % (32.4-45.2); HEMOGLOBIN 7.9 GM/dL (10.7-15.3); LYMPH % 12.9 % (8-40); MCH 22.2 pg (25.7-33.7); MCHC 30.6 g/dl (32.0-36.0); MEAN CELL VOLUME 72.4 fl (80-96); MEAN PLT VOLUME 8.4 fl (7.5-11.1); MONO % 2.1 % (3.8-10.2); NEUT % 84.4 % (42.8-82.8); RBC 3.57 M/mm3 (3.60-5.2); WHITE BLOOD COUNT 4.8 K/mm3 (4.0-10.0)
[2018-01-23 00:28] LABS: ALBUMIN 3.7 g/dl (3.4-5.0); ALK PHOS 83 U/L (45-117); ANION GAP 6 MMOL/L (8-16); BILIRUBIN,TOTAL 0.1 mg/dL (0.2-1); BLOOD UREA NITROGEN 10 mg/dL (7-18); CALCIUM 8.7 mg/dL (8.5-10.1); CHLORIDE 104 mmol/L (98-107); CO2 27 mmol/L (21-32); CREATININE 0.8 mg/dL (0.55-1.3); GLUCOSE,RANDOM 144 mg/dL (74-106); POTASSIUM 4.2 mmol/L (3.5-5.1); SGOT/AST 28 U/L (15-37); SGPT/ALT 19 U/L (13-61); SODIUM 137 mmol/L (136-145); TOT PROT 7.6 g/dl (6.4-8.2)
[2018-01-23 01:25] LABS: ANISOCYTOSIS 2+; PLATELET COUNT 90 K/MM3 (134-434); PLATELET ESTIMATE MOD DECREASED
== END 2018-01-23 02:05 | disposition home or self-care (01) ==
LOC: JERFT 19:09 → JER 19:09
PROC: 3E0337Z Introduction of Electrolytic and Water Balance Substance into Peripheral Vein, Percutaneous Approach (ICD-10-PCS; principal; 2018-01-22)
PROC: 3E033GC Introduction of Other Therapeutic Substance into Peripheral Vein, Percutaneous Approach (ICD-10-PCS; 2018-01-22)
PROC: 3E0F7GC Introduction of Other Therapeutic Substance into Respiratory Tract, Via Natural or Artificial Opening (ICD-10-PCS; 2018-01-22)
PROC: 3E0F7GC Introduction of Other Therapeutic Substance into Respiratory Tract, Via Natural or Artificial Opening (ICD-10-PCS; 2018-01-22)
PROC: 3E0F7GC Introduction of Other Therapeutic Substance into Respiratory Tract, Via Natural or Artificial Opening (ICD-10-PCS; 2018-01-22)
PROC: 3E0F7GC Introduction of Other Therapeutic Substance into Respiratory Tract, Via Natural or Artificial Opening (ICD-10-PCS; 2018-01-22)
PROC: 3E0F7GC Introduction of Other Therapeutic Substance into Respiratory Tract, Via Natural or Artificial Opening (ICD-10-PCS; 2018-01-22)
DX: J45.901 Unspecified asthma with (acute) exacerbation (principal)
CPT/HCPCS: 36415; 71046-TC-FY; 80053; 84703; 85025; 99282-25; J7030; J7620

== ENCOUNTER 2018-01-29 21:01 | Inpatient (IN) | payer OTHER ==
--- NOTE | 2018-01-29 21:18 | PDOC ---
History of Present Illness - General Stated Complaint: HIGH BP Time Seen by Provider: 01/29/18 21:09 - History of Present Illness Initial Comments: 01/29/18 21:18 32 yo F with h/o DM, anxiety, asthma, GERD, celiac, endometriosis, anemia, sciatica, IBS, appendectomy, Intussusception, Hemorrhoids, Small Bowel Resection , and recent ED encounter for asthma/cough (01/28/18) who p/w pre-syncope, and abdominal pain, N/V. Patient reports presyncopal event at 8:45 PM this evening when ambulating to bathroom. She states that she was walking with at side to vomit in bathroom, when she felt "lightheaded,"diaphoretic, and lost her balance, falling forward into bathtub, but her controlled her to the ground. Denies head/neck/back trauma or LOC. Patient reports 5-6 episodes of non bilious, non bloody emesis beginning this AM, with no identifiable triggers or alleviators. Also endorses acute crapmy-pressure type, intermittent , non radiating, mid abdominal pain. + 5-6 episodes of loose watery stools, this evening with absent BPR, or mucoid stools. Denies recent travel, change in diet, or sick contacts. Wheezing, and cough unchanged from prior ED encounter [facility] ED (01/28/18). At that time patient noted to have asymptomatic and incidental non ketotic hyperglycemia with BS ~335. Patient PCP was called and patient agreed to f/u outpatient. Metformin was sent to pharmacy, but patient has not taken. Patient denies F/C, CP, SOB, urinary complaints, hematuria, pelvic pain, BPR, diarrhea, constipation, lightheadedness, weakness, sensory changes. PMHx: as noted above ROS: as noted SHx: Tobacco use 1 ppd x 10 years. Denies Etoh, IVDA. Allergies: NKDA PMD: Dr. Dorman Past History - Past Medical History Allergies/Adverse Reactions: Allergies Allergy/AdvReac Type Severity Reaction Status Date / Time No Known Allergies Allergy Verified 01/28/18 15:23 Home Medications: Ambulatory Orders Paroxetine HCl [Paxil -] 40 mg PO HS 10/29/13 Alprazolam [Xanax] 2 mg PO TID 12/29/14 Oxycodone HCl/Acetaminophen [Percocet 10-325 mg Tablet] 1 tab PO Q4H PRN Albuterol 2.5/Ipratropium 0.5 [Duoneb -] 1 neb NEB TID PRN #30 vial 10/15/16 Albuterol Sulfate Inhaler - [Ventolin HFA Inhaler -] 1 - 2 inh PO QID PRN #1 inhaler 01/23/18 Ranitidine [Zantac -] 150 mg PO BID 01/30/18 Anemia: Yes Asthma: Yes COPD: No Diabetes: No GI Disorders: Yes (irritable bowel syndrome) Disorders: Yes (endometriosis) HTN: No Hypercholesterolemia: No Psychiatric Problems: Yes (ANXIETY.) - Surgical History Abdominal Surgery: Yes (intecessuption) Appendectomy: Yes - Reproductive History (#): 5 Para: 3 Endometriosis: Yes Therapeutic (s) & number: Yes Spontaneous : 1 - Immunization History Td Vaccination: No Immunization Up to Date: Yes - Suicide/Smoking/Psychosocial Hx Smoking Status: Yes Smoking History: Former smoker Have you smoked in the past 12 months: Yes Number of Cigarettes Smoked Daily: 20 If you are a former smoker, when did you quit?: 2 weeks ago 'Breaking Loose' booklet given: 04/19/16 Hx Alcohol Use: No Drug/Substance Use Hx: No Substance Use Type: None Hx Substance Use Treatment: No Review of Systems - Review of Systems Comments:: 01/29/18 21:21 GENERAL/CONSTITUTIONAL: No fever or chills. No weakness. HEAD, EYES, EARS, NOSE AND THROAT: No change in vision. No ear pain or discharge. No sore throat. CARDIOVASCULAR: No chest pain or shortness of breath RESPIRATORY:+ cough, wheezing. No hemoptysis. GASTROINTESTINAL: +nausea, vomiting, diarrhea. No constipation. GENITOURINARY: No dysuria, frequency, or change in urination. MUSCULOSKELETAL: No joint or muscle swelling or pain. No neck or back pain. SKIN: No rash NEUROLOGIC: + Lightheadedness. No headache, vertigo, billy change in strength/ sensation. ENDOCRINE: No increased thirst. No abnormal weight change HEMATOLOGIC/LYMPHATIC: No anemia, easy bleeding, or history of blood clots. ALLERGIC/IMMUNOLOGIC: No hives or skin allergy. *Physical Exam - Physical Exam Comments: 01/29/18 21:21 GENERAL: Awake, alert, and fully oriented, in no acute distress HEAD: No signs of trauma, normocephalic, atraumatic EYES: PERRLA, EOMI, sclera anicteric, conjunctiva clear ENT: Hearing grossly normal, nares patent, oropharynx clear without exudates. Moist mucosa NECK: Normal ROM, supple, no lymphadenopathy, JVD, or masses LUNGS: No distress, speaks full sentences, clear to auscultation bilaterally HEART: Regular rate and rhythm, normal S1 and S2, no murmurs, rubs or gallops, peripheral pulses normal and equal bilaterally. ABDOMEN: + Midabdominal ttp. Soft, normoactive bowel sounds. No guarding, no rebound. No masses. Neg CVA ttp. EXTREMITIES : Normal inspection, Normal range of motion, no edema. No clubbing or cyanosis. NEUROLOGICAL: Cranial nerves II through XII grossly intact. Normal speech, normal gait, no focal sensorimotor deficits. Normal JANET, and HTS. Neg dysmetria on FTN. SKIN: Warm, Dry, normal turgor, no rashes or lesions noted ED Treatment Course - LABORATORY CBC & Chemistry Diagram: 01/31/18 06:50 01/31/18 06:50 Medical Decision Making - Medical Decision Making 01/29/18 21:45 32 yo F with h/o DM, anxiety, asthma, GERD, celiac, endometriosis, anemia, sciatica, IBS, appendectomy, Intussusception, Hemorrhoids, Small Bowel Resection , and recent ED encounter for asthma/cough (01/28/18) who p/w pre-syncope, and abdominal pain, N/V. VSS, AF, + midabdominal ttp. Will evaluate for acute intrabdominal pathology including colitis, diverticulitis, gastritis, enteritis , urinary pathology. Low suspicion appendicitis, mesenteric ischemia, PUD. Will also asses for hypo/hyperglycemia, hypovolemia, electrolyte abnml, toxic and metabolic derangements, acid-base disturbances, or infection. Ed Course: CBC,CMP, Cardiac, BHCG, LA EKG Zofran, NS, Carafate 01/29/18 21:52 Patient signed out to night team pending labs. *DC/Admit/Observation/Transfer Diagnosis at time of Disposition: Hyperglycemia Anemia Qualifiers: Anemia type: unspecified type Qualified Code(s): D64.9 - Anemia, unspecified Abdominal pain Qualifiers: Abdominal location: unspecified location Qualified Code(s): R10.9 - Unspecified abdominal pain - Discharge Dispostion Condition at time of disposition: Stable Decision to Admit order: Yes - Referrals - Patient Instructions - Post Discharge Activity - Attestations Physician Attestion: 01/29/18 21:22 I attest to the information provided in this note.
[2018-01-29] MEDS ORDERED: SUCRALFATE 1 GM TABLET (FP) PO ONE (21:50)
[2018-01-29] MEDS ORDERED: SODIUM CHLORIDE 1,000 ML IV STA (21:50)
[2018-01-29] MEDS ORDERED: ONDANSETRON 4 MG/2 ML VIAL IVPUSH ONE (21:50)
[2018-01-29] MEDS ORDERED: FAMOTIDINE 20 MG/50 ML IVPB 20 MG/50 ML MG IVPB ONE (21:50)
--- NOTE | 2018-01-29 22:06 | PDOC ---
Attending Attestation - Resident Resident Name: Mauricio Winterson - ED Attending Attestation I have performed the following: I have examined & evaluated the patient, The case was reviewed & discussed with the resident, I agree w/resident's findings & plan, Exceptions are as noted - Medical Decision Making 01/29/18 22:06 I, Dr. Melba Meadows, DO, attest that this document has been prepared under my direction and personally reviewed by me in its entirety. I further attest, that it accurately reflects all work, treatment, procedures and medical decision -making performed by me. 01/29/18 22:30 a/p: 32yo female with hx of anemia and hx of transfusions, hx of asthma presents for eval of near syncope -lightheaded/dizzy seen yesterday with hgb 8 also with new onset hyperglycemia - new onset DM vs steroid affect -pt with diarrhea today -will send labs, type and screen, ivf hdyration wheezing on exam - will give neb -ekg -will need obs for near syncope/symptomatic anemia/hyperglycemia -Dr. Dorman is PMD - covered tonight by symphony <Melba Meadows - Last Filed: 01/29/18 22:30> - HPI HPI: 01/29/18 22:39 The patient is a 32 year old female, with a significant past medical history of DM, anxiety, asthma, GERD, celiac, endometriosis, anemia, sciatica, IBS, appendectomy, Intussusception, Hemorrhoids, Small Bowel Resection, and recent ED encounter for asthma/cough (01/28/18) , who presents to the ED complaining of abdominal pain, nausea, vomiting, diarrhea and Pre-Syncope today. She notes that she had a pre-syncopal episode today when she was walking to the bathroom. She notes that she felt lightheaded during the pre-syncope episode. She denies any loss of consciousness or head trauma. She reports 6 episodes of vomit, nonbloody and nonbilious. She describes her abdominal pain as a pressure cramp, intermittent in nature, without radiation or modifying factors. Patient was seen in the ED on 01/28/18 for wheezing and cough, there has been no change. The patient denies chest pain, shortness of breath, headache and dizziness. Denies fever, chills, or constipation. Denies dysuria, frequency, urgency and hematuria. Allergies: None Past surgical history: intecessuption, appendectomy Social History: Tobacco use 1 ppd x 10 years. Denies Etoh, IVDA. PMD: Dr. Dorman - Physicial Exam PE: 01/29/18 22:40 Constitutional: Awake, alert, oriented. No acute distress. Head: Normocephalic. Atraumatic Eyes: PERRL. EOMI. (+) Conjunctivae are pale. ENT: (+) Mucous membranes are dry. Posterior pharynx without exudates or erythema. Uvula midline. Neck: Supple. Full ROM. No lymphadenopathy. Cardiovascular: Regular rate. Regular rhythm. S1, S2 regular. Distal pulses are 2+ and symmetric. Pulmonary/Chest: No evidence of respiratory distress. (+) Wheezing diffusely, rocherous. Abdominal: (+) Mildly diffused tenderness to palpation. Soft and non- distended. No rebound, guarding or rigidity. No organomegaly. No palpable masses. Good bowel sounds. Back: No CVA tenderness. Musculoskeletal: No edema. No cyanosis. No clubbing. Full range of motion in all extremities. Nocalf tenderness. Radial/pedal pulses are intact and 2+ bilaterally Skin: Skin is warm and dry. No petechiae. No purpura. Neurological: Alert and oriented to person, place, and time. Cranial nerves II -XII are grossly intact. Normal speech. Strength is grossly symmetric. No sensory deficits. Psychiatric: Good eye contact. Normal interaction, affect and behavior. <Chris Orellana - Last Filed: 01/29/18 22:40>
[2018-01-29] MEDS ORDERED: SODIUM CHLORIDE 0.9% 1000 ML INFUS.BAG IV ONE ×2 (22:07→22:08)
[2018-01-29] MEDS ORDERED: ALBUTEROL SO4 2.5/IPRATROPIUM 0.5 INH SOL 3 ML VIAL.NEB. NEB ONE (22:28)
[2018-01-29] MEDS ORDERED: ACETAMINOPHEN 1000 MG/100 ML VIAL (NON FORMULARY) IVPB ONE (22:33)
[2018-01-29 23:34] LABS: BASO % 0.3 % (0-2.0); EOS % 3.5 % (0-4.5); HEMATOCRIT 30.8 % (32.4-45.2); HEMOGLOBIN 9.6 GM/dL (10.7-15.3); LYMPH % 27.4 % (8-40); MCH 22.2 pg (25.7-33.7); MEAN CELL VOLUME 71.4 fl (80-96); MEAN PLT VOLUME 8.3 fl (7.5-11.1); NEUT % 59.8 % (42.8-82.8); PLATELET COUNT 411 K/MM3 (134-434); RBC 4.32 M/mm3 (3.60-5.2); RDW 22.4 % (11.6-15.6); WHITE BLOOD COUNT 9.9 K/mm3 (4.0-10.0)
[2018-01-29 23:36] LABS: URINE APPEARANCE CLEAR; URINE BILIRUBIN NEGATIVE (<2.0 mg/dL); URINE COLOR STRAW; URINE GLUCOSE (UA) NEGATIVE (NEGATIVE); URINE KETONE NEGATIVE (NEGATIVE); URINE LEUK ESTERASE TRACE (NEGATIVE); URINE NITRITE NEGATIVE (NEGATIVE); URINE PROTEIN NEGATIVE (NEGATIVE); URINE UROBILINOGEN NEGATIVE mg/dL (0.2-1.0)
[2018-01-29 23:38] LABS: EPI CELLS RARE /HPF (FEW); URINE BACTERIA RARE /hpf (NONE SEEN)
[2018-01-29 23:57] LABS: ALBUMIN 3.7 g/dl (3.4-5.0); ALK PHOS 91 U/L (45-117); ANION GAP 5 MMOL/L (8-16); BILIRUBIN,TOTAL 0.2 mg/dL (0.2-1); BLOOD UREA NITROGEN 7 mg/dL (7-18); CALCIUM 8.9 mg/dL (8.5-10.1); CHLORIDE 102 mmol/L (98-107); CO2 29 mmol/L (21-32); CREATININE 0.8 mg/dL (0.55-1.3); GLUCOSE,RANDOM 252 mg/dL (74-106); POTASSIUM 4.4 mmol/L (3.5-5.1); SGOT/AST 14 U/L (15-37); SGPT/ALT 16 U/L (13-61); SODIUM 136 mmol/L (136-145); TOT PROT 7.8 g/dl (6.4-8.2)
[2018-01-30] MEDS ORDERED: FAMOTIDINE 20 MG/50 ML IVPB 20 MG/50 ML MG IVPB ONE (00:37)
--- NOTE | 2018-01-30 01:13 | PDOC ---
*Physical Exam - Vital Signs Last Vital Signs Temp Pulse Resp BP Pulse Ox 97.7 F 78 18 104/69 98 01/29/18 21:05 01/29/18 21:05 01/29/18 21:05 01/29/18 21:05 01/29/18 21:05 - Physical Exam Comments: 01/30/18 05:46 General Appearance: Nourished. No Apparent Distress HEENT: No Pharyngeal Erythema, Tonsillar Exudate, Tonsillar Erythema Neck: No Cervical Lymphadenopathy Respiratory/Chest: Lungs Clear, Normal Breath Sounds. No Crackles, Rales, Rhonchi, Wheezing Cardiovascular: Regular Rhythm, Regular Rate. No Murmur, Gallops, Rubs Gastrointestinal/Abdominal: Normal Bowel Sounds, Soft. No Guarding, Rebound, Tenderness Musculoskeletal: No CVA Tenderness Extremity: Normal Capillary Refill Integumentary: Normal Color, Dry, Warm Neurologic: Fully Oriented, Alert, Normal Mood/Affect, Normal Response, ED Treatment Course - LABORATORY CBC & Chemistry Diagram: 01/29/18 23:15 01/29/18 23:15 - ADDITIONAL ORDERS Additional order review: Laboratory Results 01/29/18 01/29/18 01/29/18 23:15 23:15 23:15 Sodium 136 Potassium 4.4 Chloride 102 Carbon Dioxide 29 Anion Gap 5 L BUN 7 Creatinine 0.8 Creat Clearance w eGFR > 60 Random Glucose 252 H Lactic Acid 0.9 Calcium 8.9 Total Bilirubin 0.2 AST 14 L ALT 16 Alkaline Phosphatase 91 Creatine Kinase Troponin I Total Protein 7.8 Albumin 3.7 Serum , Qual Urine Color Urine Appearance Urine pH Ur Specific [place] Urine Protein Urine Glucose (UA) Urine Ketones Urine Blood Urine Nitrite Urine Bilirubin Urine Urobilinogen Ur Leukocyte Esterase Urine WBC (Auto) Urine RBC (Auto) Ur Epithelial Cells Urine Bacteria Crossmatch See Detail 01/29/18 01/29/18 01/29/18 23:15 23:15 23:15 Sodium Potassium Chloride Carbon Dioxide Anion Gap BUN Creatinine Creat Clearance w eGFR Random Glucose Lactic Acid Calcium Total Bilirubin AST ALT Alkaline Phosphatase Creatine Kinase 38 Troponin I < 0.02 Total Protein Albumin Serum , Qual Negative Urine Color Straw Urine Appearance Clear Urine pH 7.0 Ur Specific [place] 1.003 L Urine Protein Negative Urine Glucose (UA) Negative Urine Ketones Negative Urine Blood Negative Urine Nitrite Negative Urine Bilirubin Negative Urine Urobilinogen Negative Ur Leukocyte Esterase Trace Urine WBC (Auto) 5 Urine RBC (Auto) 1 Ur Epithelial Cells Rare Urine Bacteria Rare Crossmatch 01/29/18 23:15 RBC 4.32 MCV 71.4 L MCHC 31.0 L RDW 22.4 H MPV 8.3 Neutrophils % 59.8 Lymphocytes % 27.4 Monocytes % 9.0 Eosinophils % 3.5 D Basophils % 0.3 - RADIOLOGY Radiology Studies Ordered: Category Date Time Status CHEST PA & LAT [RAD] Stat Radiology 01/29/18 22:21 Ordered - Medications Given in the ED: ED Medications Discontinued Medications Generic Name Dose Route Start Last Admin Trade Name Freq PRN Reason Stop Dose Admin Acetaminophen 1,000 mg 01/29/18 22:33 01/29/18 23:30 Ofirmev Injection - IVPB 01/29/18 22:34 1,000 mg ONCE ONE Administration Albuterol/Ipratropium 1 amp 01/29/18 22:28 01/29/18 23:40 Duoneb - NEB 01/29/18 22:29 1 amp ONCE ONE Administration Famotidine/Sodium Chloride 20 mg in 50 mls @ 100 mls/hr 01/29/18 21:50 00:50 Pepcid 20 Mg Premixed Ivpb - IVPB 01/29/18 22:19 100 mls/hr ONCE ONE Administration Sodium Chloride 1,000 mls @ 1,000 mls/hr 01/29/18 21:50 01/29/18 23:30 Normal Saline - IV 01/29/18 22:49 1,000 mls/hr ASDIR STA Administration Ondansetron HCl 4 mg 01/29/18 21:50 01/29/18 23:30 Zofran Injection IVPUSH 01/29/18 21:51 4 mg ONCE ONE Administration Sodium Chloride 1,000 ml 01/29/18 22:07 01/29/18 23:30 Normal Saline - IV 01/29/18 22:08 1,000 ml ONCE ONE Administration Sodium Chloride 1,000 ml 01/29/18 22:08 01/29/18 23:40 Normal Saline - IV 01/29/18 22:09 1,000 ml ONCE ONE Administration Sucralfate 1 gm 01/29/18 21:50 01/29/18 23:30 Carafate - PO 01/29/18 21:51 1 gm ONCE ONE Administration Progress Note - Progress Note Progress Note: The patient is a 32 year old female with a history of DM, anxiety, asthma, GERD , celiac, endometriosis, anemia, sciatica, IBS, appendectomy, Intussusception, Hemorrhoids, Small Bowel Resection, and recent ED encounter for asthma/cough () who p/w pre-syncope, and abdominal pain, N/V. The patient is pending lab results and likely observation admission. Medical Decision Making - Medical Decision Making 01/30/18 05:42 CBC demonstrates a hgb of 9.6 however the patient appears to be hemo- concentrated and given her symptoms of lightheadedness and pre-syncope, we will opt to transfuse with 1 unit of PRBC. CMP is unremarkable. The patient will require observation admission for further work up and management of her symptoms. We discussed the case with the admitting team who accepted the patient for admission. *DC/Admit/Observation/Transfer Diagnosis at time of Disposition: Hyperglycemia Anemia Qualifiers: Anemia type: unspecified type Qualified Code(s): D64.9 - Anemia, unspecified Abdominal pain Qualifiers: Abdominal location: unspecified location Qualified Code(s): R10.9 - Unspecified abdominal pain - Discharge Dispostion Condition at time of disposition: Stable Decision to Admit order Date/Time: Decision to Admit Order Category Date Time Status Decision to Admit to Hospital Routine Admission 01/30/18 01:07 Active - Referrals - Patient Instructions - Post Discharge Activity
[2018-01-30] MEDS ORDERED: KETOROLAC TROMETHAMINE 15 MG/ML VIAL IVPUSH ONE (01:18)
[2018-01-30] MEDS ORDERED: oxyCODONE HCL 5 MG TABLET PO ONE (04:30)
[2018-01-30] MEDS ORDERED: oxyCODONE HCL 5 MG TABLET ONE ×3 (04:36→14:32)
[2018-01-30] MEDS ORDERED: FLUCONAZOLE 100 MG TABLET (UD) PO ONE (05:28)
[2018-01-30] MEDS ORDERED: LIDOCAINE HCL 5% TOP OINTMENT 50 GM TUBE TP PRN (05:33)
--- NOTE | 2018-01-30 05:43 | HP ---
CHIEF COMPLAINT: presyncope PCP: Dorman HISTORY OF PRESENT ILLNESS: This is a 32 year old female with a past medical history of asthma, anxiety, chronic abdominal pain secondary to endometriosis, sciatic, anemia who presented to the ED with presyncope with vomiting and diarrhea 5-6 times today. She was ambulating to the bathroom when she became lightheaded, diaphoretic and weak. She collapsed and caught her. She denies LOC. Upon exam pt c/o not feeling well, lightheaded, abdominal pain and vaginal itching with whitish discharge. Pt was seen and evaluated in ED on 01/28 for cough and wheezing. She was determined to be a diabetic at that visit and given metformin x 1 dose with recommendation to f/u with PCP in am. Pt was on antibiotics last week for respiratory infection. ER course was notable for: (1) WBC 9.9 (2) gluc 252 (3) hgb 9.6--given 1uPRBC Recent Travel: pt denies PAST MEDICAL HISTORY: asthma, GERD, IBS, celiac disease, intussusception, endometriosis, sciatica, DM , anxiety PAST SURGICAL HISTORY: appendectomy, x 2, small bowel resection Social History: Smoking: smoked for 13 years, ranging from couple drags per day to 2 ppd. Alcohol: pt denies Drugs: pt denies Family History: mother s/p BrCA father with COPD sister CA-? in her back then mets to lungs brother with asthma sister alive and well Allergies No Known Allergies Allergy (Verified 01/28/18 15:23) HOME MEDICATIONS: 3 Medication Instructions Recorded Paroxetine HCl [Paxil -] 40 mg PO HS 10/29/13 Alprazolam [Xanax] 2 mg PO TID 12/29/14 Oxycodone HCl/Acetaminophen 1 tab PO Q4H PRN 03/06/15 [Percocet 10-325 mg Tablet] Albuterol 2.5/Ipratropium 0.5 1 neb NEB TID PRN #30 vial 10/15/16 [Duoneb -] Albuterol Sulfate Inhaler - 1 - 2 inh PO QID PRN #1 inhaler 01/23/18 [Ventolin HFA Inhaler -] Ranitidine [Zantac -] 150 mg PO BID 01/30/18 REVIEW OF SYSTEMS CONSTITUTIONAL: Present: malaise Absent: fever, chills, diaphoresis, generalized weakness, loss of appetite, weight change HEENT: Absent: rhinorrhea, nasal congestion, throat pain, throat swelling, difficulty swallowing, mouth swelling, ear pain, eye pain, visual changes CARDIOVASCULAR: Present: lightheadedness Absent: chest pain, syncope, palpitations, irregular heart rate, peripheral edema RESPIRATORY: Present: cough, wheezing Absent: shortness of breath, dyspnea with exertion, orthopnea, stridor, hemoptysis GASTROINTESTINAL: Absent: abdominal pain, abdominal distension, nausea, vomiting, diarrhea, constipation, melena, hematochezia GENITOURINARY: Present: vaginal burning and itching Absent: dysuria, frequency, urgency, hesitancy, hematuria, flank pain, genital pain MUSCULOSKELETAL: Absent: myalgia, arthralgia, joint swelling, back pain, neck pain SKIN: Absent: rash, itching, pallor HEMATOLOGIC/IMMUNOLOGIC: Absent: easy bleeding, easy bruising, lymphadenopathy, frequent infections ENDOCRINE: Absent: unexplained weight gain, unexplained weight loss, heat intolerance, cold intolerance NEUROLOGIC: Absent: headache, focal weakness or paresthesias, dizziness, unsteady gait, seizure, mental status changes, bladder or bowel incontinence PSYCHIATRIC: Absent: anxiety, depression, suicidal or homicidal ideation, hallucinations. PHYSICAL EXAMINATION Vital Signs - 24 hr 3 01/29/18 01/30/18 21:05 02:20 Temperature 97.7 F 98.6 F Pulse Rate 78 Pulse Rate [ 66 Right Radial] Respiratory 18 16 Rate Blood Pressure 104/69 Blood Pressure 96/35 L [Right Arm] O2 Sat by Pulse 98 98 Oximetry (%) GENERAL: Awake, alert, and fully oriented, in no acute distress. HEAD: Normal with no signs of trauma. EYES: Pupils equal, round and reactive to light, extraocular movements intact, sclera anicteric, conjunctiva clear. No lid lag. EARS, NOSE, THROAT: Ears normal, nares patent, oropharynx clear without exudates. Moist mucous membranes. NECK: Normal range of motion, supple without lymphadenopathy, JVD, or masses. LUNGS: Breath sounds equal, minimal wheezes, + coarse breath sounds with prolonged expiratory phase. No crackles. No accessory muscle use. HEART: Regular rate and rhythm, normal S1 and S2 without murmur, rub or gallop. ABDOMEN: Soft, tender to palpation lower quadrants, not distended, normoactive bowel sounds, no guarding, no rebound, no masses. No hepatomegaly or splenomegaly. CASH REGISTER REPAIRER: external labia with soft tissue swelling, + erythema, internal labia with excoriation, + white thick discharge MUSCULOSKELETAL: Normal range of motion at all joints. No bony deformities or tenderness. No CVA tenderness. UPPER EXTREMITIES: 2+ pulses, warm, well-perfused. No cyanosis. No clubbing. No peripheral edema. LOWER EXTREMITIES: 2+ pulses, warm, well-perfused. No calf tenderness. No peripheral edema. NEUROLOGICAL: Cranial nerves II-XII intact. Normal speech. Normal gait. PSYCHIATRIC: Cooperative. Good eye contact. Appropriate mood and affect. SKIN: Warm, dry, normal turgor, no rashes or lesions noted, normal capillary refill. Laboratory Results - last 24 hr 3 01/29/18 01/29/18 01/29/18 23:15 23:15 23:15 WBC 9.9 RBC 4.32 Hgb 9.6 L Hct 30.8 L D MCV 71.4 L MCH 22.2 L MCHC 31.0 L RDW 22.4 H Plt Count 411 D MPV 8.3 Absolute Neuts (auto) 5.9 Neutrophils % 59.8 Lymphocytes % 27.4 Monocytes % 9.0 Eosinophils % 3.5 D Basophils % 0.3 Nucleated RBC % 0 Sodium 136 Potassium 4.4 Chloride 102 Carbon Dioxide 29 Anion Gap 5 L BUN 7 Creatinine 0.8 Creat Clearance w eGFR > 60 Random Glucose 252 H Lactic Acid 0.9 Calcium 8.9 Total Bilirubin 0.2 AST 14 L ALT 16 Alkaline Phosphatase 91 Creatine Kinase 38 Troponin I < 0.02 Total Protein 7.8 Albumin 3.7 Serum , Qual Negative Urine Color Urine Appearance Urine pH Ur Specific [place] Urine Protein Urine Glucose (UA) Urine Ketones Urine Blood Urine Nitrite Urine Bilirubin Urine Urobilinogen Ur Leukocyte Esterase Urine WBC (Auto) Urine RBC (Auto) Ur Epithelial Cells Urine Bacteria Blood Type O POSITIVE Antibody Screen Negative Crossmatch See Detail 3 Urine Color Straw 01/29/18 23:15 Urine Appearance Clear 01/29/18 23:15 Urine pH 7.0 (5.0-8.0) 01/29/18 23:15 Ur Specific [place] 1.003 (1.010-1.035) L 01/29/18 23:15 Urine Protein Negative (NEGATIVE) 01/29/18 23:15 Urine Glucose (UA) Negative (NEGATIVE) 01/29/18 23:15 Urine Ketones Negative (NEGATIVE) 01/29/18 23:15 Urine Blood Negative (NEGATIVE) 01/29/18 23:15 Urine Nitrite Negative (NEGATIVE) 01/29/18 23:15 Urine Bilirubin Negative (<2.0 mg/dL) 01/29/18 23:15 Ur Leukocyte Esterase Trace (NEGATIVE) 01/29/18 23:15 Ur Epithelial Cells Rare /HPF (FEW) 01/29/18 23:15 Urine WBC (Auto) 5 01/29/18 23:15 Urine RBC (Auto) 1 01/29/18 23:15 Urine Bacteria Rare /hpf (NONE SEEN) 01/29/18 23:15 ECG sinus rhythm with marked sinus arrhythmia with 1st degree AV block vent rate 62, QTC [address]/T wave changes ASSESSMENT/PLAN: 32yF with PMH asthma, GERD, IBS, celiac disease, intussusception, endometriosis , sciatica, newly diagnosed DM, anxiety presented to the ED after near syncopal episode with vomiting and diarrhea 5-6x / day. near syncope - likely vasovagal related to acute gastroenteral illness - given 3L NS in Ed with mild improvement in lightheadedness - orthostatic vitals vomiting/diarrhea - cont NS @ 75cc/hr - clear liquid diet as tolerated in am, advance as tolerated. anemia - received 1uPRBC in ED - repeat CBC in am asthma exacerbation - duoneb QID - prednisone 60mg for now, taper as tolerated - consider addition of inhaled steroid to regimen vaginal yeast infection - diflucan 150 x1 - trial lidocaine ointment for discomfort GERD - cont home ranitidine chronic abdominal and back pain - cont home percocet anxiety - cont home paxil and xanax DVT PPX - heparin deferred, anticipated LOS less than 48h FEN - NS @ 75cc/hr - bmp 8am - clear liquid diet as tolerated Dispo: pt currently requires further observation Visit type - Emergency Visit Emergency Visit: Yes ED Registration Date: 01/31/18 Care time: The patient presented to the Emergency Department on the above date and was hospitalized for further evaluation of their emergent condition. - New Patient This patient is new to me today: Yes Date on this admission: 01/30/18 - Critical Care Critical Care patient: No
[2018-01-30] MEDS ORDERED: ACETAMINOPHEN 325 MG TABLET (FP) PO PRN (06:41)
[2018-01-30] MEDS ORDERED: FLUCONAZOLE 50 MG TABLET PO ONE (07:00)
[2018-01-30] MEDS ORDERED: ALBUTEROL SO4 2.5/IPRATROPIUM 0.5 INH SOL 3 ML VIAL.NEB. NEB ONE (07:48)
[2018-01-30] MEDS: ALBUTEROL SO4 2.5/IPRATROPIUM 0.5 INH SOL 3 ML VIAL.NEB. NEB SCH ×3 (07:50→20:52)
[2018-01-30] MEDS: predniSONE 20 MG TABLET (UD) PO SCH ×2 (07:50→12:59)
[2018-01-30] MEDS ORDERED: ALPRAZolam 2 MG TABLET ONE ×2 (08:56→14:31)
[2018-01-30] MEDS: oxyCODONE HCL 5 MG TABLET PO PRN ×3 (09:00→21:07)
[2018-01-30] MEDS: ALPRAZolam 2 MG TABLET PO SCH ×3 (09:00→21:07)
[2018-01-30] MEDS: SODIUM CHLORIDE 1,000 ML IV SCH ×2 (09:05→21:08)
[2018-01-30 09:58] LABS: HEMOGLOBIN 7.8 GM/dL (10.7-15.3); MEAN CELL VOLUME 73.5 fl (80-96); MEAN PLT VOLUME 7.9 fl (7.5-11.1)
[2018-01-30] MEDS: RANITIDINE HCL 150 MG TABLET (FP) PO SCH ×2 (10:00→21:07)
[2018-01-30 10:01] LABS: BASO % 0.3 % (0-2.0); EOS % 2.3 % (0-4.5); HEMATOCRIT 24.5 % (32.4-45.2); LYMPH % 15.9 % (8-40); MCH 23.3 pg (25.7-33.7); MCHC 31.7 g/dl (32.0-36.0); NEUT % 75.5 % (42.8-82.8); PLATELET COUNT 290 K/MM3 (134-434); RBC 3.34 M/mm3 (3.60-5.2); WHITE BLOOD COUNT 8.6 K/mm3 (4.0-10.0)
[2018-01-30 10:44] LABS: ANION GAP 3 MMOL/L (8-16); BLOOD UREA NITROGEN 7 mg/dL (7-18); CHLORIDE 108 mmol/L (98-107); CO2 25 mmol/L (21-32); CREATININE 0.5 mg/dL (0.55-1.3); GLUCOSE,RANDOM 131 mg/dL (74-106); MAGNESIUM 1.8 mg/dL (1.8-2.4); POTASSIUM 4.1 mmol/L (3.5-5.1); SODIUM 137 mmol/L (136-145)
--- NOTE | 2018-01-30 12:09 | EKG ---
Test Reason : Blood Pressure : / mmHG Vent. Rate : 062 BPM Atrial Rate : 062 BPM P-R Int : 272 ms QRS Dur : 076 ms QT Int : 390 ms P-R-T Axes : 064 075 010 degrees QTc Int : 395 ms SINUS RHYTHM WITH MARKED SINUS ARRHYTHMIA WITH 1ST DEGREE A-V BLOCK OTHERWISE NORMAL ECG WHEN COMPARED WITH ECG OF 31-DEC-2016 22:21, QT HAS SHORTENED Confirmed by LEOBARDO GAYTAN, PITO ([id number]) on 01/30/2018 12:08:43 PM Referred By: Confirmed By:PITO BOOTH MD
[2018-01-30] MEDS: NICOTINE 14 MG/24 HOURS TOPICAL PATCH TD SCH (14:24)
--- NOTE | 2018-01-30 15:04 | PN ---
Progress Note, Physician Chief Complaint: Patient with multiple complaints today. Mainly complains of diffuse abdominal pain and is refusing home dose oxycodone as saying she needs something stronger. However states that she has a recent history of falling asleep unintentionally, transient change in vision that has currently resolved, difficulty breathing, and anxiety. On admission she says that she had vomiting and diarrhea but is currently not endorsing that. Asking if she can go outside to smoke. - Current Medication List Current Medications: Active Medications Acetaminophen (Tylenol -) 325 mg PO Q4H PRN PRN Reason: PAIN LEVEL 6-10 Stop: 02/02/18 06:40 Albuterol/Ipratropium (Duoneb -) 1 amp NEB RQID [facility] Last Admin: 01/30/18 07:50 Dose: 1 amp Alprazolam (Xanax -) 2 mg PO TID [facility] Last Admin: 01/30/18 14:34 Dose: 2 mg Sodium Chloride (Normal Saline -) 1,000 mls @ 75 mls/hr IV ASDIR [facility] Last Admin: 01/30/18 09:05 Dose: 75 mls/hr Lidocaine HCl (Xylocaine 5% Top. Ointment) 1 applic TP Q12H PRN PRN Reason: PAIN Nicotine (Nicoderm Patch -) 14 mg TD DAILY [facility] Last Admin: 01/30/18 14:24 Dose: 14 mg Oxycodone HCl (Roxicodone -) 10 mg PO Q4H PRN PRN Reason: PAIN LEVEL 6-10 Last Admin: 01/30/18 14:34 Dose: 10 mg Paroxetine HCl (Paxil -) 40 mg PO HS [facility] Prednisone (Deltasone -) 60 mg PO DAILY [facility] Last Admin: 01/30/18 12:59 Dose: Not Given Ranitidine HCl (Zantac -) 150 mg PO BID [facility] Last Admin: 01/30/18 10:00 Dose: 150 mg - Objective Vital Signs: Vital Signs Temperature 37.1 C 01/30/18 14:21 Pulse Rate 62 01/30/18 14:21 Respiratory Rate 20 01/30/18 14:21 Blood Pressure 91/50 L 01/30/18 14:21 O2 Sat by Pulse Oximetry (%) 100 01/30/18 08:30 Constitutional: Yes: Well Nourished, No Distress, Calm Cardiovascular: Yes: Regular Rate and Rhythm. No: Gallop, Murmur, Rub Respiratory: Yes: Regular, CTA Bilaterally. No: Rales, Rhonchi, Wheezes Gastrointestinal: Yes: Normal Bowel Sounds, Soft, Tenderness (diffuse). No: Distention, Tenderness, Rebound Extremities: Yes: WNL Edema: No Labs: CBC, BMP 01/30/18 09:50 01/30/18 09:50 Problem List - Problems (1) Abdominal pain Assessment/Plan: -patient with diffuse abdominal pain and requesting IV pain medications -however do not have a specific cause for abdominal pain -will check amylase and lipase -will check CT A/P -will hold on IV pain meds at this time -gynecology and pain management consult Code(s): R10.9 - UNSPECIFIED ABDOMINAL PAIN Qualifiers: Abdominal location: unspecified location Qualified Code(s): R10.9 - Unspecified abdominal pain (2) Anemia Assessment/Plan: -received 1 unit pRBCs overnight -H/H decreased today -will recheck, suspect lab error Code(s): D64.9 - ANEMIA, UNSPECIFIED Qualifiers: Anemia type: unspecified type Qualified Code(s): D64.9 - Anemia, unspecified (3) Asthma Assessment/Plan: -controlled Code(s): J45.909 - UNSPECIFIED ASTHMA, UNCOMPLICATED Qualifiers: Asthma severity: mild Asthma complication type: uncomplicated (4) Diabetes Assessment/Plan: -recently diagnosed -hold on metformin since with GI upset -monitor Code(s): E11.9 - TYPE 2 DIABETES MELLITUS WITHOUT COMPLICATIONS Qualifiers: Diabetes mellitus type: other specified (including SANG) Diabetes mellitus snf insulin use: without snf use Diabetes mellitus complication status: without complication Qualified Code(s): E13.9 - Other specified diabetes mellitus without complications (5) IBS (irritable bowel syndrome) Assessment/Plan: -may be cause of abdominal pain -work up as above Code(s): K58.9 - IRRITABLE BOWEL SYNDROME WITHOUT DIARRHEA (6) Tobacco abuse Assessment/Plan: -nicotine patch Code(s): Z72.0 - TOBACCO USE
[2018-01-30 16:54] LABS: BASO % 0.1 % (0-2.0); EOS % 0.1 % (0-4.5); HEMATOCRIT 28.8 % (32.4-45.2); LYMPH % 6.6 % (8-40); MCH 23.3 pg (25.7-33.7); MCHC 31.4 g/dl (32.0-36.0); MEAN CELL VOLUME 74.2 fl (80-96); MEAN PLT VOLUME 8.6 fl (7.5-11.1); MONO % 1.8 % (3.8-10.2); NEUT % 91.4 % (42.8-82.8); PLATELET COUNT 384 K/MM3 (134-434); RBC 3.87 M/mm3 (3.60-5.2); RDW 22.5 % (11.6-15.6); WHITE BLOOD COUNT 8.7 K/mm3 (4.0-10.0)
[2018-01-30 17:07] LABS: AMYLASE 35 U/L (25-115); LIPASE 98 U/L (73-393)
[2018-01-30 18:46] VITALS: BMI 22.3
[2018-01-30 20:46] LABS: ANISOCYTOSIS 3+
[2018-01-30 20:47] LABS: MACROCYTOSIS 3+; PLATELET ESTIMATE ADEQUATE
[2018-01-30] MEDS: PARoxetine HCL 20 MG TABLET (FP) PO SCH (21:08)
[2018-01-30] MEDS ORDERED: INSULIN (NOVOLOG) ASPART 100 UNITS/ML 10ML VIAL SQ ONE ×2 (21:47→23:14)
[2018-01-31] MEDS: oxyCODONE HCL 5 MG TABLET PO PRN ×2 (04:06→11:23)
[2018-01-31] MEDS: INSULIN SLIDING SCALE (NOVOLOG) 1 VIAL SQ SCH ×4 (06:25→21:05)
[2018-01-31] MEDS: ALPRAZolam 2 MG TABLET PO SCH ×4 (06:25→21:04)
[2018-01-31] MEDS ORDERED: PT OWN MED DRAWER 7, Y5N ONE (07:04)
[2018-01-31 07:37] LABS: BASO % 0.5 % (0-2.0); EOS % 1.7 % (0-4.5); HEMATOCRIT 25.7 % (32.4-45.2); LYMPH % 29.9 % (8-40); MCH 23.1 pg (25.7-33.7); MCHC 31.2 g/dl (32.0-36.0); MONO % 8.9 % (3.8-10.2); PLATELET COUNT 338 K/MM3 (134-434); RBC 3.47 M/mm3 (3.60-5.2); RDW 23.2 % (11.6-15.6); WHITE BLOOD COUNT 9.6 K/mm3 (4.0-10.0)
[2018-01-31 07:51] LABS: ANION GAP 7 MMOL/L (8-16); BLOOD UREA NITROGEN 9 mg/dL (7-18); CALCIUM 8.1 mg/dL (8.5-10.1); CHLORIDE 108 mmol/L (98-107); CO2 24 mmol/L (21-32); CREATININE 0.6 mg/dL (0.55-1.3); GLUCOSE,RANDOM 125 mg/dL (74-106); MAGNESIUM 1.9 mg/dL (1.8-2.4); PHOSPHOROUS 4.3 mg/dL (2.5-4.9); SODIUM 139 mmol/L (136-145)
[2018-01-31] MEDS: ALBUTEROL SO4 2.5/IPRATROPIUM 0.5 INH SOL 3 ML VIAL.NEB. NEB SCH ×4 (08:08→20:22)
[2018-01-31] MEDS: RANITIDINE HCL 150 MG TABLET (FP) PO SCH ×2 (11:23→21:04)
[2018-01-31] MEDS: predniSONE 20 MG TABLET (UD) PO SCH (11:23)
[2018-01-31] MEDS: SODIUM CHLORIDE 1,000 ML IV SCH ×2 (11:24→14:42)
[2018-01-31] MEDS: NICOTINE 14 MG/24 HOURS TOPICAL PATCH TD SCH (11:24)
[2018-01-31] MEDS ORDERED: FLU VACCINE QUAD 60 MCG/0.5 ML (MDV 18-19) IM ONE (12:00)
[2018-01-31] MEDS: MORPHINE SULFATE 2 MG/ML VIAL IVPUSH PRN ×2 (14:38→20:32)
--- NOTE | 2018-01-31 16:38 | PN ---
Progress Note, Physician Chief Complaint: Patient complains of severe abdominal pain today. No cp or sob. - Current Medication List Current Medications: Active Medications Acetaminophen (Tylenol -) 325 mg PO Q4H PRN PRN Reason: PAIN LEVEL 6-10 Stop: 02/02/18 06:40 Albuterol/Ipratropium (Duoneb -) 1 amp NEB RQID [facility] Last Admin: 01/31/18 11:37 Dose: 1 amp Alprazolam (Xanax -) 2 mg PO TID [facility] Last Admin: 01/31/18 14:45 Dose: 2 mg Sodium Chloride (Normal Saline -) 1,000 mls @ 75 mls/hr IV ASDIR [facility] Last Admin: 01/31/18 14:42 Dose: 75 mls/hr Insulin Aspart (Novolog Vial Sliding Scale -) 1 vial SQ ACHS [facility]; Protocol Last Admin: 01/31/18 11:32 Dose: Not Given Lidocaine HCl (Xylocaine 5% Top. Ointment) 1 applic TP Q12H PRN PRN Reason: PAIN Morphine Sulfate (Morphine Sulfate) 1 mg IVPUSH Q6H PRN PRN Reason: PAIN LEVEL 6-10 Stop: 02/01/18 06:00 Last Admin: 01/31/18 14:38 Dose: 1 mg Nicotine (Nicoderm Patch -) 14 mg TD DAILY [facility] Last Admin: 01/31/18 11:24 Dose: 14 mg Oxycodone HCl (Roxicodone -) 10 mg PO Q4H PRN PRN Reason: PAIN LEVEL 6-10 Last Admin: 01/31/18 11:23 Dose: 10 mg Paroxetine HCl (Paxil -) 40 mg PO HS [facility] Last Admin: 01/30/18 21:08 Dose: 40 mg Ranitidine HCl (Zantac -) 150 mg PO BID [facility] Last Admin: 01/31/18 11:23 Dose: 150 mg - Objective Vital Signs: Vital Signs Temperature 37.1 C 01/31/18 14:35 Pulse Rate 61 01/31/18 14:35 Respiratory Rate 17 01/31/18 14:35 Blood Pressure 106/62 01/31/18 14:35 O2 Sat by Pulse Oximetry (%) 96 01/31/18 14:00 Constitutional: Yes: Well Nourished, No Distress, Calm Cardiovascular: Yes: Regular Rate and Rhythm. No: Gallop, Murmur, Rub Respiratory: Yes: Regular, CTA Bilaterally. No: Rales, Rhonchi, Wheezes Gastrointestinal: Yes: Normal Bowel Sounds, Soft, Tenderness. No: Distention Extremities: Yes: WNL Edema: No Labs: CBC, BMP 01/31/18 06:50 01/31/18 06:50 Problem List - Problems (1) Abdominal pain Code(s): R10.9 - UNSPECIFIED ABDOMINAL PAIN Qualifiers: Abdominal location: unspecified location Qualified Code(s): R10.9 - Unspecified abdominal pain (2) Anemia Code(s): D64.9 - ANEMIA, UNSPECIFIED Qualifiers: Anemia type: unspecified type Qualified Code(s): D64.9 - Anemia, unspecified (3) Asthma Code(s): J45.909 - UNSPECIFIED ASTHMA, UNCOMPLICATED Qualifiers: Asthma severity: mild Asthma complication type: uncomplicated (4) Diabetes Code(s): E11.9 - TYPE 2 DIABETES MELLITUS WITHOUT COMPLICATIONS Qualifiers: Diabetes mellitus type: other specified (including SANG) Diabetes mellitus long term care phlebotomist insulin use: without long term care phlebotomist use Diabetes mellitus complication status: without complication Qualified Code(s): E13.9 - Other specified diabetes mellitus without complications (5) IBS (irritable bowel syndrome) Code(s): K58.9 - IRRITABLE BOWEL SYNDROME WITHOUT DIARRHEA (6) Tobacco abuse Code(s): Z72.0 - TOBACCO USE Assessment/Plan (1) Abdominal pain secondary to ruptured ovarian cyst Assessment/Plan: -will place on IV morphine today as ruptured ovarian cysts can be quite painful -however will only keep on IV morphine today, change back to oxycodone tomorrow (already ordered) -will not give IV morphine after today's dose, patient is aware of this -gynecology consulted -also noted to have prominent CBD, abdominal ultrasound ordered Code(s): R10.9 - UNSPECIFIED ABDOMINAL PAIN Qualifiers: Abdominal location: unspecified location Qualified Code(s): R10.9 - Unspecified abdominal pain (2) Anemia Assessment/Plan: -stable Code(s): D64.9 - ANEMIA, UNSPECIFIED Qualifiers: Anemia type: unspecified type Qualified Code(s): D64.9 - Anemia, unspecified (3) Asthma Assessment/Plan: -controlled Code(s): J45.909 - UNSPECIFIED ASTHMA, UNCOMPLICATED Qualifiers: Asthma severity: mild Asthma complication type: uncomplicated (4) Diabetes Assessment/Plan: -recently diagnosed -will stop steroids as causing elevated glucose -monitor -considering metformin but is known to cause abdominal pain so may worsen clinical picture Code(s): E11.9 - TYPE 2 DIABETES MELLITUS WITHOUT COMPLICATIONS Qualifiers: Diabetes mellitus type: other specified (including SANG) Diabetes mellitus fci insulin use: without fci use Diabetes mellitus complication status: without complication Qualified Code(s): E13.9 - Other specified diabetes mellitus without complications (5) IBS (irritable bowel syndrome) Assessment/Plan: -may be cause of abdominal pain -work up as above Code(s): K58.9 - IRRITABLE BOWEL SYNDROME WITHOUT DIARRHEA (6) Tobacco abuse Assessment/Plan: -nicotine patch Code(s): Z72.0 - TOBACCO USE
[2018-01-31] MEDS: PARoxetine HCL 20 MG TABLET (FP) PO SCH (21:04)
[2018-02-01] MEDS: MORPHINE SULFATE 2 MG/ML VIAL IVPUSH PRN (02:21)
[2018-02-01] MEDS: SODIUM CHLORIDE 1,000 ML IV SCH ×2 (06:30→11:20)
[2018-02-01] MEDS: INSULIN SLIDING SCALE (NOVOLOG) 1 VIAL SQ SCH ×4 (06:33→22:39)
[2018-02-01] MEDS: ALPRAZolam 2 MG TABLET PO SCH ×3 (06:47→22:35)
[2018-02-01 07:29] LABS: BASO % 0.4 % (0-2.0); EOS % 0.3 % (0-4.5); HEMATOCRIT 25.8 % (32.4-45.2); HEMOGLOBIN 8.3 GM/dL (10.7-15.3); MCH 23.7 pg (25.7-33.7); MCHC 32.1 g/dl (32.0-36.0); MEAN CELL VOLUME 73.7 fl (80-96); MEAN PLT VOLUME 8.1 fl (7.5-11.1); MONO % 10.1 % (3.8-10.2); NEUT % 67.2 % (42.8-82.8); PLATELET COUNT 323 K/MM3 (134-434); RDW 23.3 % (11.6-15.6); WHITE BLOOD COUNT 9.2 K/mm3 (4.0-10.0)
[2018-02-01] MEDS: ALBUTEROL SO4 2.5/IPRATROPIUM 0.5 INH SOL 3 ML VIAL.NEB. NEB SCH ×5 (08:40→20:50)
[2018-02-01 08:52] LABS: ANION GAP 8 MMOL/L (8-16); BLOOD UREA NITROGEN 11 mg/dL (7-18); CALCIUM 8.8 mg/dL (8.5-10.1); CHLORIDE 104 mmol/L (98-107); CO2 25 mmol/L (21-32); CREATININE 0.8 mg/dL (0.55-1.3); GLUCOSE,RANDOM 194 mg/dL (74-106); MAGNESIUM 2.1 mg/dL (1.8-2.4); PHOSPHOROUS 4.4 mg/dL (2.5-4.9); POTASSIUM 4.4 mmol/L (3.5-5.1); SODIUM 137 mmol/L (136-145)
[2018-02-01] MEDS: NICOTINE 14 MG/24 HOURS TOPICAL PATCH TD SCH (10:12)
[2018-02-01 10:30] LABS: ANISOCYTOSIS 2+
[2018-02-01] MEDS: oxyCODONE HCL 5 MG TABLET PO PRN ×3 (11:17→22:46)
[2018-02-01] MEDS: RANITIDINE HCL 150 MG TABLET (FP) PO SCH ×2 (11:17→22:35)
[2018-02-01] MEDS ORDERED: INSULIN (NOVOLOG) ASPART 100 UNITS/ML 10ML VIAL ONE (11:56)
--- NOTE | 2018-02-01 13:46 | PN ---
Progress Note, Physician Chief Complaint: C/O Vaginal itching and discharge with pain no fever or chills. History of Present Illness: 32 year old female with a past medical history of asthma, anxiety, chronic abdominal pain secondary to endometriosis, sciatic, anemia who presented to the ED with presyncope with vomiting and diarrhea 5-6 times today. She was ambulating to the bathroom when she became lightheaded, diaphoretic and weak. She collapsed and caught her. She denies LOC. - Current Medication List Current Medications: Active Medications Acetaminophen (Tylenol -) 325 mg PO Q4H PRN PRN Reason: PAIN LEVEL 6-10 Stop: 02/02/18 06:40 Albuterol/Ipratropium (Duoneb -) 1 amp NEB RQID [facility] Last Admin: 02/01/18 12:27 Dose: Not Given Alprazolam (Xanax -) 2 mg PO TID [facility] Last Admin: 02/01/18 13:39 Dose: 2 mg Sodium Chloride (Normal Saline -) 1,000 mls @ 75 mls/hr IV ASDIR [facility] Last Admin: 02/01/18 11:20 Dose: Not Given Insulin Aspart (Novolog Vial Sliding Scale -) 1 vial SQ ACHS [facility]; Protocol Last Admin: 02/01/18 11:56 Dose: 4 units Lidocaine HCl (Xylocaine 5% Top. Ointment) 1 applic TP Q12H PRN PRN Reason: PAIN Nicotine (Nicoderm Patch -) 14 mg TD DAILY [facility] Last Admin: 02/01/18 10:12 Dose: Not Given Oxycodone HCl (Roxicodone -) 10 mg PO Q4H PRN PRN Reason: PAIN LEVEL 6-10 Last Admin: 02/01/18 11:17 Dose: 10 mg Paroxetine HCl (Paxil -) 40 mg PO HS [facility] Last Admin: 01/31/18 21:04 Dose: 40 mg Ranitidine HCl (Zantac -) 150 mg PO BID [facility] Last Admin: 02/01/18 11:17 Dose: 150 mg - Objective Vital Signs: Vital Signs Temperature 98.2 F 02/01/18 12:45 Pulse Rate 62 02/01/18 12:45 Respiratory Rate 18 02/01/18 12:45 Blood Pressure 110/60 02/01/18 12:45 O2 Sat by Pulse Oximetry (%) 97 01/31/18 20:40 Constitutional: Yes: Well Nourished, No Distress, Calm Cardiovascular: Yes: Regular Rate and Rhythm. No: Gallop, Murmur, Rub Respiratory: Yes: Regular, CTA Bilaterally. No: Rales, Rhonchi, Wheezes Gastrointestinal: Yes: Normal Bowel Sounds, Soft, Tenderness (diffuse). No: Distention, Tenderness, Rebound Extremities: Yes: WNL Labs: CBC, BMP 02/01/18 06:30 02/01/18 06:30 Problem List - Problems (1) Abdominal pain Assessment/Plan: H/O Endometriosis on pain meds, Ct shows ruptured cyst RT UQ ultrasound normal, element of Narcotic dependence. Code(s): R10.9 - UNSPECIFIED ABDOMINAL PAIN Qualifiers: Abdominal location: unspecified location Qualified Code(s): R10.9 - Unspecified abdominal pain (2) Endometriosis Assessment/Plan: Pain management Code(s): N80.9 - ENDOMETRIOSIS, UNSPECIFIED (3) Asthma Assessment/Plan: Stable cont current management Code(s): J45.909 - UNSPECIFIED ASTHMA, UNCOMPLICATED Qualifiers: Asthma severity: mild Asthma complication type: uncomplicated (4) Vaginitis Assessment/Plan: C/O vaginal irritation will F/U recommendations will add Flagyl and Clotrimazole vaginal cream pending DRY CLEANER HELPER recommendations. Code(s): N76.0 - ACUTE VAGINITIS
[2018-02-01] MEDS ORDERED: CLOTRIMAZOLE 1% VAGINAL CREAM WITH APPLICATOR 45 GM TUBE VG SCH (22:00)
[2018-02-01] MEDS ORDERED: metroNIDAZOLE 0.75% VAGINAL GEL 70 GM TUBE VG SCH (22:00)
[2018-02-01] MEDS ORDERED: PT OWN MED DRAWER 7, Y5N ONE (22:34)
[2018-02-01] MEDS: PARoxetine HCL 20 MG TABLET (FP) PO SCH (22:35)
[2018-02-02] MEDS: oxyCODONE HCL 5 MG TABLET PO PRN ×3 (03:28→15:00)
[2018-02-02] MEDS: ALPRAZolam 2 MG TABLET PO SCH ×2 (05:39→15:01)
[2018-02-02] MEDS: INSULIN SLIDING SCALE (NOVOLOG) 1 VIAL SQ SCH ×2 (06:03→11:54)
[2018-02-02] MEDS: ALBUTEROL SO4 2.5/IPRATROPIUM 0.5 INH SOL 3 ML VIAL.NEB. NEB SCH ×2 (08:10→12:05)
[2018-02-02 08:38] LABS: BASO % 0.4 % (0-2.0); EOS % 1.4 % (0-4.5); HEMATOCRIT 26.7 % (32.4-45.2); HEMOGLOBIN 8.4 GM/dL (10.7-15.3); LYMPH % 24.2 % (8-40); MCH 23.4 pg (25.7-33.7); MCHC 31.5 g/dl (32.0-36.0); MEAN CELL VOLUME 74.2 fl (80-96); MONO % 9.8 % (3.8-10.2); NEUT % 64.2 % (42.8-82.8); PLATELET COUNT 333 K/MM3 (134-434); WHITE BLOOD COUNT 9.4 K/mm3 (4.0-10.0)
[2018-02-02 09:38] LABS: ANION GAP 8 MMOL/L (8-16); BLOOD UREA NITROGEN 7 mg/dL (7-18); CALCIUM 8.7 mg/dL (8.5-10.1); CHLORIDE 103 mmol/L (98-107); CO2 26 mmol/L (21-32); CREATININE 0.7 mg/dL (0.55-1.3); GLUCOSE,RANDOM 124 mg/dL (74-106); POTASSIUM 4.4 mmol/L (3.5-5.1); SODIUM 137 mmol/L (136-145)
[2018-02-02] MEDS: SODIUM CHLORIDE 1,000 ML IV SCH (10:04)
[2018-02-02] MEDS: RANITIDINE HCL 150 MG TABLET (FP) PO SCH (10:05)
[2018-02-02] MEDS: NICOTINE 14 MG/24 HOURS TOPICAL PATCH TD SCH (10:07)
[2018-02-02] MEDS ORDERED: INSULIN (NOVOLOG) ASPART 100 UNITS/ML 10ML VIAL ONE ×2 (11:54→19:02)
[2018-02-02] MEDS ORDERED: FLUCONAZOLE 150 MG TABLET PO ONE (13:51)
--- NOTE | 2018-02-02 13:57 | DS ---
Physical Examination Vital Signs: Vital Signs Temperature 99.0 F 02/02/18 10:00 Pulse Rate 62 02/02/18 10:00 Respiratory Rate 18 02/02/18 10:00 Blood Pressure 110/56 L 02/02/18 10:00 O2 Sat by Pulse Oximetry (%) 94 L 02/02/18 06:00 Constitutional: Well Nourished, No Distress, Calm HEENT: Mm moist, anemia, PERRLA, EOMI NECK: No JVd No Bruit Cardiovascular: Yes: Regular Rate and Rhythm. No: Gallop, Murmur, Rub Respiratory: CTA Bilaterally. No: Rales, Rhonchi or Wheezes Gastrointestinal: Normal Bowel Sounds, Soft, Tenderness (diffuse). No: Distention, Tenderness, Rebound Extremities: No Edema feet, no calf tenderness Pulses DATA REVIEW SPECIALIST: Erythema + no vaginal discharge Labs: CBC, BMP 02/02/18 07:30 02/02/18 07:30 CBC,CMP WBC 9.4 K/mm3 (4.0-10.0) 02/02/18 07:30 RBC 3.60 M/mm3 (3.60-5.2) 02/02/18 07:30 Hgb 8.4 GM/dL (10.7-15.3) L 02/02/18 07:30 Hct 26.7 % (32.4-45.2) L 02/02/18 07:30 MCV 74.2 fl (80-96) L 02/02/18 07:30 MCH 23.4 pg (25.7-33.7) L 02/02/18 07:30 MCHC 31.5 g/dl (32.0-36.0) L 02/02/18 07:30 RDW 24.0 % (11.6-15.6) H 02/02/18 07:30 Plt Count 333 K/MM3 (134-434) 02/02/18 07:30 MPV 8.0 fl (7.5-11.1) 02/02/18 07:30 Absolute Neuts (auto) 6.1 K/mm3 (1.5-8.0) 02/02/18 07:30 Total Counted 100 01/30/18 15:00 Neutrophils % 64.2 % (42.8-82.8) 02/02/18 07:30 Neutrophils % (Manual) 90.0 % (42.8-82.8) H 01/30/18 15:00 Band Neutrophils % 2.0 % 01/30/18 15:00 Lymphocytes % 24.2 % (8-40) 02/02/18 07:30 Lymphocytes % (Manual) 6.0 % (8-40) L 01/30/18 15:00 Monocytes % 9.8 % (3.8-10.2) 02/02/18 07:30 Monocytes % (Manual) 2 % (3.8-10.2) L 01/30/18 15:00 Eosinophils % 1.4 % (0-4.5) D 02/02/18 07:30 Basophils % 0.4 % (0-2.0) 02/02/18 07:30 Nucleated RBC % 0 % (0-0) 02/02/18 07:30 Hypochromia 3+ 01/30/18 15:00 Platelet Estimate Adequate 01/30/18 15:00 Platelet Comment No clumping noted 01/30/18 15:00 Anisocytosis 2+ 02/01/18 06:30 Macrocytosis 3+ 01/30/18 15:00 Sodium 137 mmol/L (136-145) 02/02/18 07:30 Potassium 4.4 mmol/L (3.5-5.1) 02/02/18 07:30 Chloride 103 mmol/L (98-107) 02/02/18 07:30 Carbon Dioxide 26 mmol/L (21-32) 02/02/18 07:30 Anion Gap 8 MMOL/L (8-16) 02/02/18 07:30 BUN 7 mg/dL (7-18) 02/02/18 07:30 Creatinine 0.7 mg/dL (0.55-1.3) 02/02/18 07:30 Creat Clearance w eGFR > 60 (>60) 02/02/18 07:30 POC Glucometer 120 UNITS (80-120) 02/02/18 05:46 Random Glucose 124 mg/dL (74-106) H 02/02/18 07:30 Hemoglobin A1c % 7.1 % (4.2-6.3) H 01/29/18 23:15 Lactic Acid 0.9 mmol/L (0.4-2.0) 01/29/18 23:15 Calcium 8.7 mg/dL (8.5-10.1) 02/02/18 07:30 Phosphorus 4.4 mg/dL (2.5-4.9) 02/01/18 06:30 Magnesium 2.1 mg/dL (1.8-2.4) 02/01/18 06:30 Total Bilirubin 0.2 mg/dL (0.2-1) 01/29/18 23:15 AST 14 U/L (15-37) L 01/29/18 23:15 ALT 16 U/L (13-61) 01/29/18 23:15 Alkaline Phosphatase 91 U/L (45-117) 01/29/18 23:15 Creatine Kinase 38 IU/L (26-192) 01/29/18 23:15 Troponin I < 0.02 ng/ml (0.00-0.05) 01/29/18 23:15 Total Protein 7.8 g/dl (6.4-8.2) 01/29/18 23:15 Albumin 3.7 g/dl (3.4-5.0) 01/29/18 23:15 Total Amylase 35 U/L (25-115) 01/30/18 15:00 Lipase 98 U/L (73-393) 01/30/18 15:00 Serum , Qual Negative 01/29/18 23:15 Discharge Summary Reason For Visit: ANEMIA,PRE-SYNCOPE,ABDOMINAL PAIN Current Active Problems Abdominal pain (Acute) Anemia (Acute) Hyperglycemia (Acute) Vaginitis (Acute) Hospital Course: 32 year old female with a past medical history of asthma, anxiety, chronic abdominal pain secondary to endometriosis, sciatic, anemia who presented to the ED with presyncope with vomiting and diarrhea 5-6 times, She was ambulating to the bathroom when she became lightheaded, diaphoretic and weak. She collapsed and caught her. patient admitted for observation, remained hremodynamically stable CT abd shows possible ruptured ovarian cyst , minimal fluid, no signs of obstruction or peritonitis, RT UQ ultrasound un remarkable, after hospitalization c/o vaginal burning sensation and curdy discharged received Fluconazole and Ont Clotrimazole and Metronidazole provided, GTN consulted recommonded out patient F/U. Urine test is -ve. Condition: Stable - Instructions Diet, Activity, Other Instructions: as advised Referrals: Marcellus Dorman MD [Primary Care Provider] - 1 Week Disposition: HOME - Home Medications Comprehensive Discharge Medication List: Ambulatory Orders Paroxetine HCl [Paxil -] 40 mg PO HS 10/29/13 Alprazolam [Xanax] 2 mg PO TID 12/29/14 Oxycodone HCl/Acetaminophen [Percocet 10-325 mg Tablet] 1 tab PO Q4H PRN Albuterol 2.5/Ipratropium 0.5 [Duoneb -] 1 neb NEB TID PRN #30 vial 10/15/16 Albuterol Sulfate Inhaler - [Ventolin HFA Inhaler -] 1 - 2 inh PO QID PRN #1 inhaler 01/23/18 Ranitidine [Zantac -] 150 mg PO BID 01/30/18 Clotrimazole [Gyne-Lotrimin -] 1 applic VG HS tube 02/02/18 metroNIDAZOLE 0.75% VAG. GEL [Metrogel 0.75% Vaginal Gel -] 1 applic VG HS tube 02/02/18
[2018-02-02] MEDS ORDERED: PT OWN MED DRAWER 7, Y5N ONE (14:40)
[2018-02-02 15:24] VITALS: BP 112/48; PULSE 98; TEMP 97.8
[2018-02-02] MEDS ORDERED: FERROUS SO4 325 MG TABLET (FP) PO SCH (17:30)
== END 2018-02-02 18:46 | disposition home or self-care (01) | DRG 204 ==
LOC: JER 21:01 → JERBED 01-30 01:07 → J8W 01-30 18:33 → OBSVTOIN 02-01 14:38
PROVIDERS: ADMIT Internal Medicine; ATTEND Internal Medicine
DX: R55 Syncope and collapse (principal); N80.9 Endometriosis, unspecified; M54.30 Sciatica, unspecified side; D64.9 Anemia, unspecified; F41.9 Anxiety disorder, unspecified; R10.9 Unspecified abdominal pain; K21.9 Gastro-esophageal reflux disease without esophagitis; K58.9 Irritable bowel syndrome, unspecified; E11.9 Type 2 diabetes mellitus without complications; K90.0 Celiac disease; N83.201 Unspecified ovarian cyst, right side; J45.901 Unspecified asthma with (acute) exacerbation; R11.10 Vomiting, unspecified; R19.7 Diarrhea, unspecified; N76.0 Acute vaginitis; Z87.891 Personal history of nicotine dependence
CPT/HCPCS: 36415; 36430; 71046-TC-FY; 74178-TC; 76705-TC; 80048; 80053; 81003; 81015; 82150; 82550; 82947; 82962; 83036; 83605; 83690; 83735; 84100; 84484; 84703; 85025; 86850; 86900; 86901; 86922; 87086; 90688; 93005; 93010; 94640; 99284-25; G0008; G0378; J0131; J7030; P9038; P9058

== ENCOUNTER 2018-05-14 11:56 | Emergency (ER) | payer OTHER ==
[2018-05-14 12:00] VITALS: BMI 27.4
--- NOTE | 2018-05-14 12:26 | PDOC ---
History of Present Illness - General Chief Complaint: Cold Symptoms Stated Complaint: PRODUCTIVE COUGH Time Seen by Provider: 05/14/18 11:58 - History of Present Illness Initial Comments: 05/14/18 15:11 Chief complaint: Cough and congestion History of present illness: Nasal congestion and productive cough, wheezing for several days. Questionable history of asthma, diagnosed only one year ago. Prior steroids at the time of diagnosis, none since. Heavy smoker. Prescribed a nebulizer but was lost in her recent move. Review of systems: No fever/chills, chest pain, shortness of breath, abdominal pain, nausea, vomiting, diarrhea, visual or focal neurologic symptoms, unsteadiness of gait, vaginal bleeding or discharge, urinary tract symptoms Past medical history: [id number] diabetes, COPD and/or asthma Social/family history significant for unstable living environment. Heavy smoker. No drugs or alcohol. Physical exam: Alert and oriented well-developed well-nourished no acute distress cheerful and cooperative Afebrile, vital signs normal including respiratory rate and oxygen saturation HEENT: PERRLA, nasal congestion moderate without discharge, throat clear, ears clear Neck supple without bruit mass or nodes Chest exam reveals bilateral end expiratory wheezing, no rales or rhonchi, no dullness to percussion. Respiratory rate and oxygen saturation are normal CV S1 and S2 normal without murmur rub or gallop pulses full and symmetric no JVD or edema no tachycardia Abdomen benign Extremities no CCE Skin clear, no rash, adequate turgor and wet mucous membranes Neurological intact Impression: Acute bronchitis in a heavy smoker, with questionable history of asthma Plan: X-ray shows no definite infiltrate. Patient's wheezing improved with nebulizer treatment. Short course of steroids, antibiotics, expectorant, and rest. Close follow-up recommended with return to ER immediately if symptoms worsen. Past History - Past Medical History Allergies/Adverse Reactions: Allergies Allergy/AdvReac Type Severity Reaction Status Date / Time No Known Allergies Allergy Verified 01/28/18 15:23 Home Medications: Ambulatory Orders Paroxetine HCl [Paxil -] 40 mg PO HS 10/29/13 Alprazolam [Xanax] 2 mg PO TID 12/29/14 Ranitidine [Zantac -] 150 mg PO BID 01/30/18 Azithromycin [Zithromax 250mg Tablets -] 250 mg PO UTDICT #6 tab 05/14/18 Glipizide [Glipizide Xl] 5 mg PO DAILY 05/14/18 Guaifenesin Dm [Robitussin Dm -] 10 ml PO Q4H PRN #120 ml 05/14/18 Methylprednisolone [Medrol Dose Ángel] 4 mg PO ASDIR #21 tablet 05/14/18 Anemia: Yes Asthma: Yes COPD: No Diabetes: No GI Disorders: Yes (irritable bowel syndrome) Disorders: Yes (endometriosis) HTN: No Hypercholesterolemia: No Psychiatric Problems: Yes (ANXIETY.) - Surgical History Abdominal Surgery: Yes (intecessuption) Appendectomy: Yes - Reproductive History (#): 5 Para: 3 Endometriosis: Yes Therapeutic (s) & number: Yes Spontaneous : 1 - Immunization History Td Vaccination: No Immunization Up to Date: Yes - Suicide/Smoking/Psychosocial Hx Smoking Status: Yes Smoking History: Current every day smoker Have you smoked in the past 12 months: Yes Number of Cigarettes Smoked Daily: 20 If you are a former smoker, when did you quit?: 2 weeks ago Information on smoking cessation initiated: Yes 'Breaking Loose' booklet given: 04/19/16 Hx Alcohol Use: No Drug/Substance Use Hx: No Substance Use Type: None Hx Substance Use Treatment: No *Physical Exam - Vital Signs Last Vital Signs Temp Pulse Resp BP Pulse Ox 98.6 F 78 19 103/64 99 05/14/18 11:57 05/14/18 11:57 05/14/18 11:57 05/14/18 11:57 05/14/18 11:57 Moderate Sedation - Procedure Monitoring Vital Signs: Procedure Monitoring Vital Signs Temperature 98.6 F 05/14/18 11:57 Pulse Rate 78 05/14/18 11:57 Respiratory Rate 19 05/14/18 11:57 Blood Pressure 103/64 05/14/18 11:57 O2 Sat by Pulse Oximetry (%) 99 05/14/18 11:57 ED Treatment Course - ADDITIONAL ORDERS Additional order review: Laboratory Results 05/14/18 12:12 Urine HCG, Qual Negative Medical Decision Making - Medical Decision Making 05/14/18 14:13 Chest x-ray shows no evidence of acute pneumonia Patient is much improved after nebulizer treatment. Breath sounds are full and symmetric. Wheezing has resolved. Respiratory rate and oxygen saturation on room air are normal. *DC/Admit/Observation/Transfer Diagnosis at time of Disposition: Asthmatic bronchitis with acute exacerbation Qualifiers: Asthma severity: moderate - Discharge Dispostion Disposition: HOME Condition at time of disposition: Improved Decision to Admit order: No - Prescriptions Prescriptions: Azithromycin [Zithromax 250mg Tablets -] 250 mg PO UTDICT #6 tab Guaifenesin Dm [Robitussin Dm -] 10 ml PO Q4H PRN #120 ml PRN Reason: Cough Methylprednisolone [Medrol Dose Ángel] 4 mg PO ASDIR #21 tablet - Referrals Referrals: Marcellus Dorman MD [Primary Care Provider] - 24 hours - Patient Instructions Printed Discharge Instructions: DI for Acute Bronchitis Additional Instructions: The corticosteroid medication and cough suppressant may cause an elevation of your blood sugar. Check your sugar frequently and discuss with primary physician or return to the emergency room if sugar is over 299 See primary physician and obtain a nebulizer of your own for home use as soon as possible. Return to the emergency room immediately if there is increased chest tightness, wheezing, shortness of breath, or fever. - Post Discharge Activity Forms/Work/School Notes: Back to Work
[2018-05-14] MEDS ORDERED: ALBUTEROL SO4 2.5/IPRATROPIUM 0.5 INH SOL 3 ML VIAL.NEB. NEB ONE ×4 (12:27→13:13)
[2018-05-14] MEDS ORDERED: guaiFENesin/D-METHORPHAN HB 10 ML UNIT-DOSE CUPS PO ONE (12:27)
[2018-05-14 12:28] VITALS: BP 103/64; PULSE 78; TEMP 98.6
[2018-05-14] MEDS ORDERED: guaiFENesin/D-METHORPHAN HB 10 ML UNIT-DOSE CUPS ONE (12:29)
[2018-05-14] MEDS ORDERED: FAMOTIDINE 20 MG TABLET PO ONE (12:55)
[2018-05-14] MEDS ORDERED: predniSONE 20 MG TABLET (UD) PO ONE (12:55)
[2018-05-14] MEDS ORDERED: FAMOTIDINE 20 MG TABLET ONE (13:12)
[2018-05-14] MEDS ORDERED: predniSONE 20 MG TABLET (UD) ONE (13:13)
== END 2018-05-14 14:26 | disposition home or self-care (01) ==
LOC: FER 11:56
PROC: 3E0F7GC Introduction of Other Therapeutic Substance into Respiratory Tract, Via Natural or Artificial Opening (ICD-10-PCS; principal; 2018-05-14)
DX: F17.210 Nicotine dependence, cigarettes, uncomplicated (principal); F41.9 Anxiety disorder, unspecified
CPT/HCPCS: 71046-TC-FY; 84703; 99282-25

== ENCOUNTER 2018-07-27 22:20 | Emergency (ER) | payer OTHER ==
[2018-07-27 22:28] VITALS: BP 134/72; PULSE 98; TEMP 97.8; BMI 23.0
--- NOTE | 2018-07-27 22:54 | PDOC ---
History of Present Illness - General Chief Complaint: Blood Sugar Problem Stated Complaint: "MY SUGAR IS HIGH" Time Seen by Provider: 07/27/18 22:38 - History of Present Illness Initial Comments: 07/27/18 23:15 32 years old with past medical history significant for asthma anxiety chronic abdominal pain secondary to endometriosis sciatica anemia and now diabetes presents to the emergency department with presyncopal episode patient states her sugar is been high she has felt weak during the day has had irregular menses and had an episode of lightheadedness checked her sugar earlier and it was elevated in the 400s decided to come to the emergency department upon arrival to the emergency department fingerstick in the 200s Symptoms of lightheadedness seem to be intermittent she did not lose consciousness seem to be related to her regular menses Denies fever chills chest pain chronic cough secondary to chronic tobacco use patient counseled regarding smoking cessation Chronic abdominal pain and nausea which is baseline with her endometriosis she is scheduled for a hysterectomy No diarrhea no rashes bone spurs is yes Past History - Past Medical History Allergies/Adverse Reactions: Allergies Allergy/AdvReac Type Severity Reaction Status Date / Time No Known Allergies Allergy Verified 01/28/18 15:23 Home Medications: Ambulatory Orders Paroxetine HCl [Paxil -] 40 mg PO HS 10/29/13 Alprazolam [Xanax] 2 mg PO TID 12/29/14 Ranitidine [Zantac -] 150 mg PO BID 01/30/18 Azithromycin [Zithromax 250mg Tablets -] 250 mg PO UTDICT #6 tab 05/14/18 Glipizide [Glipizide Xl] 5 mg PO DAILY 05/14/18 Guaifenesin Dm [Robitussin Dm -] 10 ml PO Q4H PRN #120 ml 05/14/18 Methylprednisolone [Medrol Dose Ángel] 4 mg PO ASDIR #21 tablet 05/14/18 Anemia: Yes Asthma: Yes COPD: No Diabetes: No GI Disorders: Yes (irritable bowel syndrome) Disorders: Yes (endometriosis) HTN: No Hypercholesterolemia: No Psychiatric Problems: Yes (ANXIETY.) - Surgical History Abdominal Surgery: Yes (intecessuption) Appendectomy: Yes - Reproductive History (#): 5 Para: 3 Endometriosis: Yes Therapeutic (s) & number: Yes Spontaneous : 1 - Immunization History Td Vaccination: No Immunization Up to Date: Yes - Suicide/Smoking/Psychosocial Hx Smoking Status: Yes Smoking History: Current every day smoker Have you smoked in the past 12 months: Yes Number of Cigarettes Smoked Daily: 20 If you are a former smoker, when did you quit?: 2 weeks ago Information on smoking cessation initiated: No 'Breaking Loose' booklet given: 04/19/16 Hx Alcohol Use: No Drug/Substance Use Hx: No Substance Use Type: None Hx Substance Use Treatment: No Review of Systems - Review of Systems Comments:: 07/27/18 23:16 ROS: A complete review of 10 out of 10 review of systems is taken and is negative apart from what is previously mentioned below and in the HPI. *Physical Exam - Vital Signs Last Vital Signs Temp Pulse Resp BP Pulse Ox 97.8 F 98 H 15 134/72 98 07/27/18 22:22 07/27/18 22:22 07/27/18 22:22 07/27/18 22:22 07/27/18 22:22 - Physical Exam Comments: 07/27/18 23:16 Vitals: Triage Vital signs reviewed General Appearance: no acute distress, well nourished well developed, Head: Atraumatic, Throat: Posterior oropharynx without erythema, mucous membranes moist, Neck: Supple;No Nucal rigidity Chest Wall: Nontender Cardiac: Regular rate and rhythym, no murmurs, no rubs, no gallops, Lungs: Clear to auscultation bilateral, good air movement bilaterally, Abdomen: Soft, non distended, normal bowel sounds, non tender to palpation Extremities: Full range of motion to all extremities, no cyanosis, clubbing, or edema Skin: Warm and dry, no rashes or lesions, no rash, no petechiae Neuro: Strength intact to all extremities, Sensation intact to all extremities, gait normal Psych: normal mood, normal affect ED Treatment Course - LABORATORY CBC & Chemistry Diagram: 07/27/18 23:00 07/27/18 23:00 - ADDITIONAL ORDERS Additional order review: Laboratory Results 07/27/18 22:41 POC Glucometer 224 07/27/18 22:41 POC Glucometer 224 Medical Decision Making - Medical Decision Making 07/27/18 23:55 32 years old with episode of lightheadedness/presyncope. Patient has had this in the past per previous chart review Today her EKG demonstrates normal sinus rhythm with no ST elevations isolated T- wave inversions in leads V2 and V3 is is unchanged compared to her previous EKGs Her laboratory analysis is unremarkable her hemoglobin and hematocrit is at her baseline given chronic anemia History examination most consistent with presyncopal likely secondary to irregular menses possibly vagal in nature Patient has follow-up with her primary care provider tomorrow her fingerstick in the emergency Department was in the 200s Findings, the need for follow-up and strict return instructions discussed patient *DC/Admit/Observation/Transfer Diagnosis at time of Disposition: Lightheaded - Discharge Dispostion Disposition: HOME Condition at time of disposition: Good Decision to Admit order: No - Referrals Referrals: Marcellus Dorman MD [Primary Care Provider] - - Patient Instructions Printed Discharge Instructions: DI for Hyperglycemia -- Adult Additional Instructions: Drink plenty of fluids. Take your home medications as prescribed please try to stop smoking cigarettes. Talk to Dr. Dorman tomorrow about measures to help you with this Follow-up with your [facility] this week regarding your irregular menses Return to the ED for any severe worsening symptoms or for any concerns. - Post Discharge Activity
[2018-07-27] MEDS ORDERED: ALBUTEROL SO4 2.5/IPRATROPIUM 0.5 INH SOL 3 ML VIAL.NEB. NEB ONE ×2 (22:58→23:49)
[2018-07-27] MEDS ORDERED: SODIUM CHLORIDE 0.9% 1000 ML INFUS.BAG IV ONE (22:58)
[2018-07-27 23:35] LABS: MEAN PLT VOLUME 8.6 fl (7.5-11.1)
[2018-07-27 23:40] LABS: ALK PHOS 67 U/L (45-117); ANION GAP 7 MMOL/L (8-16); BILIRUBIN,TOTAL 0.2 mg/dl (0.2-1); BLOOD UREA NITROGEN 5 mg/dl (7-18); CALCIUM 8.8 mg/dl (8.5-10); CHLORIDE 104 mmol/L (98-107); CO2 24 mmol/L (21-32); CREATININE 0.7 mg/dl (0.55-1.3); GLUCOSE,RANDOM 235 mg/dl (74-106); POTASSIUM 4.5 mmol/L (3.5-5.1); SGOT/AST 22 U/L (15-37); SGPT/ALT 13 U/L (13-61); SODIUM 135 mmol/L (136-145); TOT PROT 7.3 g/dl (6.4-8.2)
[2018-07-27 23:41] LABS: HEMATOCRIT 26.5 % (32.4-45.2); HEMOGLOBIN 8.2 GM/dl (10.7-15.3); MEAN CELL VOLUME 77.8 fl (80-96); RBC 3.41 M/mm3 (3.60-5.2); WHITE BLOOD COUNT 5.2 K/mm3 (4.0-10.8)
[2018-07-27 23:42] LABS: ADD RBC MORPHOLOGY YES; BASO % 0.7 % (0-2.0); EOS % 4.2 % (0-4.5); LYMPH % 38.5 % (8-40); MCHC 30.9 g/dl (32.0-36.0); MONO % 7.3 % (3.8-10.2); NEUT % 49.3 % (42.8-82.8); PLATELET COUNT 167 K/MM3 (134-434); RDW 17.6 % (11.6-15.6)
[2018-07-27 23:50] LABS: EPITHELIAL CELLS MODERATE /hpf
[2018-07-28] LABS: ANISOCYTOSIS 1+; OVALOCYTE 1+; TEAR DROP CELLS OCCASIONAL
--- NOTE | 2018-07-28 15:36 | EKG ---
Test Reason : Blood Pressure : / mmHG Vent. Rate : 076 BPM Atrial Rate : 076 BPM P-R Int : 254 ms QRS Dur : 082 ms QT Int : 400 ms P-R-T Axes : 062 076 025 degrees QTc Int : 450 ms SINUS RHYTHM WITH SINUS ARRHYTHMIA WITH 1ST DEGREE A-V BLOCK OTHERWISE NORMAL ECG WHEN COMPARED WITH ECG OF 29-JAN-2018 22:35, QT HAS LENGTHENED Confirmed by DENAE GAYTAN, RUDY ([id number]) on 07/28/2018 3:36:21 PM Referred By: MD LIVE Confirmed By:RUDY PHILIPPE MD
== END 2018-07-28 00:37 | disposition home or self-care (01) ==
LOC: FER 22:20
PROC: 3E0F7GC Introduction of Other Therapeutic Substance into Respiratory Tract, Via Natural or Artificial Opening (ICD-10-PCS; principal; 2018-07-27)
PROC: 3E0337Z Introduction of Electrolytic and Water Balance Substance into Peripheral Vein, Percutaneous Approach (ICD-10-PCS; 2018-07-27)
DX: R42 Dizziness and giddiness (principal); J45.909 Unspecified asthma, uncomplicated; G89.29 Other chronic pain; E11.65 Type 2 diabetes mellitus with hyperglycemia; F41.9 Anxiety disorder, unspecified; K58.9 Irritable bowel syndrome, unspecified; F17.210 Nicotine dependence, cigarettes, uncomplicated
CPT/HCPCS: 36415; 71045-TC-FY; 80053; 81003; 81015; 82962; 84484; 85025; 87086; 87186; 93005; 99284-25; J7030

== ENCOUNTER 2019-03-25 21:03 | Inpatient (IN) | payer OTHER ==
[2019-03-25] MEDS ORDERED: SODIUM CHLORIDE 1,000 ML IV ONE ×2 (21:27→21:28)
[2019-03-25] MEDS ORDERED: ONDANSETRON 4 MG/2 ML VIAL IVPB ONE (21:28)
[2019-03-25] MEDS ORDERED: morphine CARPU-JECT 2 MG/1 ML DISP.SYRIN IVPUSH ONE (21:28)
[2019-03-25] MEDS ORDERED: ONDANSETRON 4 MG/2 ML VIAL ONE (21:52)
[2019-03-25] MEDS ORDERED: morphine SULFATE 4 MG/ML VIAL ONE (21:52)
[2019-03-25 21:55] LABS: BASO % 0.3 % (0-2.0); HEMATOCRIT 37.3 % (32.4-45.2); HEMOGLOBIN 11.9 GM/dl (10.7-15.3); LYMPH % 13.8 % (8-40); MCH 26.3 pg (25.7-33.7); MCHC 32.1 g/dl (32.0-36.0); MEAN PLT VOLUME 9.9 fl (7.5-11.1); MONO % 12.8 % (3.8-10.2); NEUT % 72.1 % (42.8-82.8); PLATELET COUNT 132 K/MM3 (134-434); RBC 4.54 M/mm3 (3.60-5.2); RDW 17.2 % (11.6-15.6); WHITE BLOOD COUNT 6.1 K/mm3 (4.0-10.8)
[2019-03-25 22:02] LABS: ALBUMIN 4.6 g/dl (3.4-5.0); BILIRUBIN,TOTAL 0.6 mg/dl (0.2-1); CALCIUM 9.3 mg/dl (8.5-10); CREATININE 1.2 mg/dl (0.55-1.3); TOT PROT 8.6 g/dl (6.4-8.2)
--- NOTE | 2019-03-25 22:06 | PDOC ---
Documentation entered by Catalina Jama SCRIBE, acting as scribe for Mary Fernandez MD. Mary Fernandez MD: This documentation has been prepared by the sandraibbritney, Catalina Jama SCRIBE, under my direction and personally reviewed by me in its entirety. I confirm that the documentation accurately reflects all work , treatment, procedures, and medical decision making performed by me. History of Present Illness - General Chief Complaint: Nausea/Vomiting Stated Complaint: ABD PAIN, N/V Time Seen by Provider: 03/25/19 21:08 History Source: Patient Exam Limitations: No Limitations - History of Present Illness Initial Comments: 03/25/19 21:37 The patient is a 33-year-old female who presents to the emergency department with 6 days of abdominal pain, back pain, and vomiting. The patient reports on morning she had an onset of epigastric-umbilical pain. The patient states she thought she pulled a muscle and left it along, however that evening, she started to have episodes of vomiting. The patient reports the vomiting has been worsening, with no improvement with soup, crackers, or fay gopi. The patient reports the vomiting has further exacerbated into projectile vomiting with content coming out of from nose. The patient reports associated symptoms of pain with voiding. The patient reports secondary to the vomiting, she was unable to take her medication. PAST MEDICAL HISTORY: Endometriosis, DM, anxiety, GERD, IBS, Celiac disease, Small bowel intussusception s/p small bowel resection (03/15/[address] Gray). PAST SURGICAL HISTORY: x2, appendectomy, small bowel resection. FAMILY HISTORY: no pertinent history SOCIAL HISTORY: Pt lives with family and is employed. MEDICATIONS: reviewed ALLERGIES: As per nursing notes Review of system: General: No fevers or chills, no weakness, no weight loss HEENT: No change in vision. No sore throat,. No ear pain CardioVascular: No chest pain or shortness of breath Respiratory: No cough, or wheezing. Gastrointestinal: +abdominal pain, vomiting. No diarrhea or constipation. Genitourinary: +pain with urination. No hematuria, or frequency Musculoskeletal: +back pain. No joint or other muscle pain or swelling Neurologic: No headache, vertigo, dizziness or loss of consciousness Psychiatric: nor depression Skin: No rashes or easy bruising Endocrine: no increased thirst or abnormal weight change Allergic: no skin or latex allergy All other systems reviewed and normal Physical exam: General: Chronicle ill appearing, thin female, no acute distress HENT: +Dry mucous membranes. Throat: Normal, tonsils normal, no erythema or exudate Neck: Supple, no meningeal signs, no lymphadenopathy Eyes: Pupils equal reactive and round, extraocular motion intact Chest: Nontender to palpation Cardiac: +tachycardia. S1-S2 normal rhythm, no murmurs rubs or gallops Respiratory: Lungs clear to auscultation bilateral Abdomen: +abdomen distended, bowel sounds present but decreased, diffuse tenderness on palpation, no rebound or guarding. Extremities: Warm, dry, no cyanosis, clubbing, or edema Skin: Midline abdominal and lower abdominal scars from prior surgeries. No rashes Neuro: Alert and oriented x3, nonfocal exam, grossly intact, normal gait Psych: Normal mood and affect. 03/25/19 23:24 Assessment and plan: 03/25/19 23:43 This is a 33-year-old female with multiple medical problems in the past including small bowel intussusception and small bowel resection. Patient comes in complaining of 6 days of vomiting with abdominal pain. Patient is chronically ill-appearing. CAT scan was done which shows a small bowel obstruction with the transition point at the site of her surgical clips from the past. Discussed with Dr. Lafleur of surgery who will consult and patient will be admitted to an inpatient bed by the hospitalist service. Past History - Past Medical History Allergies/Adverse Reactions: Allergies Allergy/AdvReac Type Severity Reaction Status Date / Time No Known Allergies Allergy Verified 01/28/18 15:23 Home Medications: Ambulatory Orders Paroxetine HCl [Paxil -] 40 mg PO HS 10/29/13 Alprazolam [Xanax] 2 mg PO TID 12/29/14 Ranitidine [Zantac -] 150 mg PO BID 01/30/18 Azithromycin [Zithromax 250mg Tablets -] 250 mg PO UTDICT #6 tab 05/14/18 Glipizide [Glipizide Xl] 5 mg PO DAILY 05/14/18 Guaifenesin Dm [Robitussin Dm -] 10 ml PO Q4H PRN #120 ml 05/14/18 Methylprednisolone [Medrol Dose Ángel] 4 mg PO ASDIR #21 tablet 05/14/18 Oxycodone HCl/Acetaminophen [Percocet 10-325 mg Tablet] 1 each PO QID 07/28/18 Sulfamethoxazole/Trimethoprim [Bactrim Ds -] 1 tab PO BID #14 tablet 07/31/18 Anemia: Yes Asthma: Yes COPD: No Diabetes: No GI Disorders: Yes (irritable bowel syndrome) Disorders: Yes (endometriosis) HTN: No Hypercholesterolemia: No Psychiatric Problems: Yes (ANXIETY.) - Surgical History Abdominal Surgery: Yes (intecessuption) Appendectomy: Yes - Reproductive History (#): 5 Para: 3 Endometriosis: Yes Therapeutic (s) & number: Yes Spontaneous : 1 - Immunization History Td Vaccination: No Immunization Up to Date: Yes - Psycho Social/Smoking Cessation Hx Smoking Status: Yes Smoking History: Current every day smoker Have you smoked in the past 12 months: Yes Number of Cigarettes Smoked Daily: 20 If you are a former smoker, when did you quit?: 2 weeks ago Information on smoking cessation initiated: No 'Breaking Loose' booklet given: 04/19/16 Hx Alcohol Use: No Drug/Substance Use Hx: No Substance Use Type: None Hx Substance Use Treatment: No Abd/GI Specific PMHX - Complaint Specific PMHX Colitis: No Diverticulitis: No Gall Bladder Disease: No GERD: Yes Hepatitis: No Irritable Bowel Synd (IBS): Yes Pancreatitis: No GI Ulcer Disease: No *Physical Exam - Vital Signs Last Vital Signs Temp Pulse Resp BP Pulse Ox 97.6 F 100 H 14 95/64 95 03/25/19 21:07 03/25/19 21:07 03/25/19 21:07 03/25/19 21:07 03/25/19 21:07 ED Treatment Course - LABORATORY CBC & Chemistry Diagram: 03/25/19 21:50 03/25/19 21:50 Discharge - Discharge Information Problems reviewed: Yes Clinical Impression/Diagnosis: Small bowel obstruction Condition: Fair - Admission Yes - Follow up/Referral Referrals: Marcellus Dorman MD [Primary Care Provider] - - Patient Discharge Instructions - Post Discharge Activity
[2019-03-26] MEDS ORDERED: METOCLOPRAMIDE HCL INJECTION 10 MG/2 ML VIAL ONE (01:07)
[2019-03-26] MEDS ORDERED: morphine SULFATE 4 MG/ML VIAL ONE (01:07)
[2019-03-26] MEDS ORDERED: morphine CARPU-JECT 2 MG/1 ML DISP.SYRIN IVPUSH PRN (01:42)
[2019-03-26] MEDS ORDERED: D5-NS + 20 MEQ KCL - 20 MEQ/1,000 ML INFUS.BAG IV SCH (02:00)
[2019-03-26] MEDS ORDERED: morphine CARPU-JECT 4 MG/1 ML DISP.SYRIN IVPUSH ONE (02:16)
[2019-03-26] MEDS ORDERED: METOCLOPRAMIDE HCL INJECTION 10 MG/2 ML VIAL IVPUSH ONE (02:17)
[2019-03-26] MEDS ORDERED: LORazepam 2 MG/ML SDV VIAL IVPUSH ONE (03:03)
[2019-03-26 03:39] VITALS: BMI 20.1
[2019-03-26] MEDS: ONDANSETRON 4 MG/2 ML VIAL IVPUSH PRN ×3 (06:37→22:00)
--- NOTE | 2019-03-26 08:02 | HP ---
"CHIEF COMPLAINT: Abdominal pain PRESENT ILLNESS: 33 year-old female with a PMH significant for anxiety, chronic pain, GERD, endometriosis, and s/p small bowel resection 2/2 small bowel intussuception ( 2013) who presents to the emergency department with 6 days of abdominal pain, back pain, and vomiting. The patient reports on morning she had an onset of epigastric-umbilical pain. That evening, she started to have episodes of vomiting. The patient reports the vomiting has been worsening, with no improvement with soup, crackers, or fay gopi. The patient reports the vomiting has further exacerbated into projectile vomiting with content coming out of from nose. The patient reports associated symptoms of pain with voiding. The patient reports secondary to the vomiting, she was unable to take her medication. ER course was notable for: (1) CT: severe mid to distal SBO Recent Travel: No PAST MEDICAL HISTORY: Anxiety GERD Celiac disease IBS Endometriosis Anemia Chronic pain PAST SURGICAL HISTORY: x 2 Appendectomy Small bowel resection 2/2 small bowel intussuception (2013) Social History: Smoking: current smoker Alcohol: denies Drugs: see ISTOP below Family History: mother s/p BrCA father with COPD sister CA-? in her back then mets to lungs brother with asthma sister alive and well Allergies No Known Allergies Allergy (Verified 01/28/18 15:23) HOME MEDICATIONS: Home Medications Medication Instructions Recorded Paroxetine HCl [Paxil -] 40 mg PO HS 10/29/13 Alprazolam [Xanax] 2 mg PO QID 12/29/14 Ranitidine [Zantac -] 150 mg PO PRN 01/30/18 Glipizide [Glipizide Xl] 10 mg PO DAILY 05/14/18 Oxycodone HCl/Acetaminophen 2 each PO TID 07/28/18 [Percocet 10-325 mg Tablet] Glimepiride 4 mg PO BID 03/26/19 Insulin Glargine,Hum.rec.anlog 10 unit SQ DAILY 03/26/19 [Basaglar Kwikpen U-100] Ondansetron HCl [Zofran] 8 mg PO PRN 03/26/19 Pioglitazone HCl 30 mg PO DAILY 03/26/19 REVIEW OF SYSTEMS CONSTITUTIONAL: Absent: fever, chills, diaphoresis, generalized weakness, malaise, loss of appetite, weight change HEENT: Absent: rhinorrhea, nasal congestion, throat pain, throat swelling, difficulty swallowing, mouth swelling, ear pain, eye pain, visual changes CARDIOVASCULAR: Absent: chest pain, syncope, palpitations, irregular heart rate, lightheadedness , peripheral edema RESPIRATORY: Absent: cough, shortness of breath, dyspnea with exertion, orthopnea, wheezing, stridor, hemoptysis GASTROINTESTINAL: +abdominal pain, vomiting Absent: abdominal distension, diarrhea, constipation, melena, hematochezia GENITOURINARY: Absent: dysuria, frequency, urgency, hesitancy, hematuria, flank pain, genital pain MUSCULOSKELETAL: Absent: myalgia, arthralgia, joint swelling, back pain, neck pain SKIN: Absent: rash, itching, pallor HEMATOLOGIC/IMMUNOLOGIC: Absent: easy bleeding, easy bruising, lymphadenopathy, frequent infections ENDOCRINE: Absent: unexplained weight gain, unexplained weight loss, heat intolerance, cold intolerance NEUROLOGIC: Absent: headache, focal weakness or paresthesias, dizziness, unsteady gait, seizure, mental status changes, bladder or bowel incontinence PSYCHIATRIC: Absent: anxiety, depression, suicidal or homicidal ideation, hallucinations. PHYSICAL EXAMINATION Vital Signs - 24 hr 03/25/19 03/26/19 03/26/19 21:07 00:30 02:30 Temperature 97.6 F 98.7 F Pulse Rate 100 H 83 Pulse Rate [ 70 Right Radial] Respiratory 14 14 18 Rate Blood Pressure 95/64 106/62 Blood Pressure 104/70 [Right Arm] O2 Sat by Pulse 95 100 97 Oximetry (%) 03/26/19 05:42 Temperature 99.8 F H Pulse Rate 78 Pulse Rate [ Right Radial] Respiratory 18 Rate Blood Pressure 101/64 Blood Pressure [Right Arm] O2 Sat by Pulse 93 L Oximetry (%) GENERAL: Awake, alert, and fully oriented. Thin, ill-appearing, appears much older than stated age HEAD: Normal with no signs of trauma. EYES: Pupils equal, round and reactive to light, extraocular movements intact, sclera anicteric, conjunctiva clear. LUNGS: Breath sounds equal, clear to auscultation bilaterally. No wheezes, and no crackles. No accessory muscle use. HEART: Regular rate and rhythm, normal S1 and S2 ABDOMEN: Soft, diffusely tender, hypoactive bowel sounds MUSCULOSKELETAL: Normal range of motion at all joints. No bony deformities or tenderness. No CVA tenderness. UPPER EXTREMITIES: 2+ pulses, warm, well-perfused. No cyanosis. No clubbing. No peripheral edema. LOWER EXTREMITIES: 2+ pulses, warm, well-perfused. No calf tenderness. No peripheral edema. NEUROLOGICAL: Cranial nerves II-XII intact. Normal speech. Laboratory Results - last 24 hr 03/25/19 03/25/19 03/25/19 21:45 21:50 21:50 WBC 6.1 RBC 4.54 Hgb 11.9 Hct 37.3 D MCV 82.0 MCH 26.3 MCHC 32.1 RDW 17.2 H Plt Count 132 L MPV 9.9 Absolute Neuts (auto) 4.4 Neutrophils % 72.1 Lymphocytes % 13.8 Monocytes % 12.8 H Eosinophils % 1.0 Basophils % 0.3 Sodium 131 L Potassium 3.0 L Chloride 89 L Carbon Dioxide 22 Anion Gap 20 H BUN 22.0 H Creatinine 1.2 Est GFR (CKD-EPI)AfAm 67.81 Est GFR (CKD-EPI)NonAf 58.50 POC Glucometer Random Glucose 128 H Lactic Acid 1.2 Calcium 9.3 Total Bilirubin 0.6 AST 24 ALT 14 Alkaline Phosphatase 67 Total Protein 8.6 H Albumin 4.6 Lipase Urine Color Urine Appearance Urine pH Urine Protein Urine Glucose (UA) Urine Ketones Urine Blood Urine Nitrite Urine Bilirubin Urine Urobilinogen Ur Leukocyte Esterase Urine RBC Urine WBC Urine Bacteria Urine HCG, Qual 03/25/19 03/25/19 03/25/19 21:50 23:40 23:40 WBC RBC Hgb Hct MCV MCH MCHC RDW Plt Count MPV Absolute Neuts (auto) Neutrophils % Lymphocytes % Monocytes % Eosinophils % Basophils % Sodium Potassium Chloride Carbon Dioxide Anion Gap BUN Creatinine Est GFR (CKD-EPI)AfAm Est GFR (CKD-EPI)NonAf POC Glucometer Random Glucose Lactic Acid Calcium Total Bilirubin AST ALT Alkaline Phosphatase Total Protein Albumin Lipase 40 L Urine Color Yellow Urine Appearance Clear Urine pH 5.5 Urine Protein Negative Urine Glucose (UA) Negative Urine Ketones 1+ H Urine Blood Trace-intact Urine Nitrite Negative Urine Bilirubin 1+ H Urine Urobilinogen 0.2 Ur Leukocyte Esterase Negative Urine RBC 2-5 Urine WBC 0-2 Urine Bacteria Few Urine HCG, Qual Negative 03/26/19 06:57 WBC RBC Hgb Hct MCV MCH MCHC RDW Plt Count MPV Absolute Neuts (auto) Neutrophils % Lymphocytes % Monocytes % Eosinophils % Basophils % Sodium Potassium Chloride Carbon Dioxide Anion Gap BUN Creatinine Est GFR (CKD-EPI)AfAm Est GFR (CKD-EPI)NonAf POC Glucometer 159 Random Glucose Lactic Acid Calcium Total Bilirubin AST ALT Alkaline Phosphatase Total Protein Albumin Lipase Urine Color Urine Appearance Urine pH Urine Protein Urine Glucose (UA) Urine Ketones Urine Blood Urine Nitrite Urine Bilirubin Urine Urobilinogen Ur Leukocyte Esterase Urine RBC Urine WBC Urine Bacteria Urine HCG, Qual ASSESSMENT/PLAN: 33 year-old female with a PMH significant for anxiety, chronic pain, GERD, endometriosis, and s/p small bowel resection 2/ small bowel intussuception ( 2013), admitted for SBO. SBO --CT: severe mid to distal SBO --NGT to LWS --IV fluids --serial abdominal xrays --surgery following Hypokalemia --replete Anxiety Chronic pain --based on IStop search, patient takes oxycodone 60mg and alprazolam 6mg daily --convert alprazolam to IV ativan --convert oxycodone to morphine and start at 50% dose FEN Fluids: NS+20Kmeq@125mL/hr Electrolytes: replete as indicated Nutrition: NPO DVT prophylaxis: subq heparin Dispo: continues to require inpatient care. Full code. I STOP The Drug Utilization Report below displays all of the controlled substance prescriptions, if any, that your patient has filled in the last twelve months. The information displayed on this report is compiled from pharmacy submissions to the Department, and accurately reflects the information as submitted by the pharmacies. This report was requested by: Jacklyn Acosta | Reference #: [id number] Others' Prescriptions Patient Name: Rufina Justice Date: 1985 Address: [address] [place] [address] Sex: Female Rx Written Rx Dispensed Drug Quantity Days Supply Prescriber Name 03/23/2019 03/23/2019 oxycodone-acetaminophen 10-325 mg tab 180 30 Marcellus Dorman) 02/13/2019 03/11/2019 alprazolam 2 mg tablet 90 30 Marcellus Dorman) 02/13/2019 02/19/2019 oxycodone-acetaminophen 10-325 mg tab 180 30 Dorman, Marcellus BELLO) 01/13/2019 02/09/2019 alprazolam 2 mg tablet 90 30 Dorman, Marcellus BELLO) 01/16/2019 01/22/2019 oxycodone-acetaminophen 10-325 mg tab 180 30 Dorman, Marcellus BELLO) 01/05/2019 01/12/2019 alprazolam 2 mg tablet 90 30 Dorman, Marcellus BELLO) 12/23/2018 12/24/2018 oxycodone-acetaminophen 10-325 mg tablet 180 30 Dorman, Marcellus BELLO) 12/03/2018 12/13/2018 alprazolam 2 mg tablet 90 30 Dorman, Marcellus BELLO) 11/25/2018 11/25/2018 oxycodone-acetaminophen 10-325 mg tab 180 30 Dorman, Marcellus BELLO) 11/13/2018 11/14/2018 alprazolam 2 mg tablet 90 30 Dorman, Marcellus BELLO) 10/27/2018 10/28/2018 oxycodone-acetaminophen 10-325 mg tab 180 30 Dorman, Marcellus BELLO) 10/13/2018 10/16/2018 alprazolam 2 mg tablet 90 30 Dorman, Marcellus BELLO) 09/27/2018 09/29/2018 oxycodone-acetaminophen 10-325 mg tab 180 30 Dorman, Marcellus BELLO) 09/16/2018 09/16/2018 alprazolam 2 mg tablet 90 30 Dorman, Marcellus BELLO) 08/27/2018 08/30/2018 oxycodone-acetaminophen 10-325 mg tab 180 30 Dorman, Marcellus BELLO) 08/13/2018 08/17/2018 alprazolam 2 mg tablet 90 30 Dorman, Marcellus BELLO) 07/30/2018 08/01/2018 oxycodone-acetaminophen 10-325 mg tab 180 30 Dorman, Marcellus BELLO) 07/28/2018 07/28/2018 oxycodone hcl 20 mg tablet 21 7 Dorman, Marcellus BELLO) 06/30/2018 07/18/2018 alprazolam 2 mg tablet 90 30 Dorman, Marcellus BELLO) 06/30/2018 07/03/2018 oxycodone-acetaminophen 10-325 mg tab 180 30 Dorman, Marcellus BELLO) 06/02/2018 06/17/2018 alprazolam 2 mg tablet 90 30 Marcellus Dorman) 06/02/2018 06/03/2018 oxycodone-acetaminophen 10-325 mg tab 180 30 Marcellus Dorman) 05/05/2018 05/18/2018 alprazolam 2 mg tablet 90 30 Marcellus Dorman) 05/05/2018 05/06/2018 oxycodone-acetaminophen 10-325 mg tablet 180 30 Marcellus Dorman) 04/03/2018 04/14/2018 alprazolam 2 mg tablet 90 30 Marcellus Dorman) 04/03/2018 04/06/2018 oxycodone-acetaminophen 10-325 mg tablet 180 30 Marcellus Dorman) Visit type - Emergency Visit Emergency Visit: Yes ED Registration Date: 03/25/19 Care time: The patient presented to the Emergency Department on the above date and was hospitalized for further evaluation of their emergent condition. - New Patient This patient is new to me today: Yes Date on this admission: 03/29/19 - Critical Care Critical Care patient: No"
[2019-03-26 08:09] LABS: HEMATOCRIT 33.2 % (32.4-45.2); HEMOGLOBIN 10.6 GM/dl (10.7-15.3); MCH 26.1 pg (25.7-33.7); MEAN CELL VOLUME 81.8 fl (80-96); MEAN PLT VOLUME 10.5 fl (7.5-11.1); PLATELET COUNT 122 K/MM3 (134-434); RBC 4.06 M/mm3 (3.60-5.2); RDW 17.2 % (11.6-15.6); WHITE BLOOD COUNT 5.1 K/mm3 (4.0-10.8)
[2019-03-26 08:11] LABS: CALCIUM 8.8 mg/dl (8.5-10); CREATININE 0.8 mg/dl (0.55-1.3); POTASSIUM 3.2 mmol/L (3.5-5.1)
--- NOTE | 2019-03-26 08:34 | CONSULT ---
- Consultation REQUESTING PROVIDER: General Surgery -Dr. Kyle Lafleur CONSULT REQUEST: We have been asked to surgically evaluate this patient for ABD pain/SBO/n&v Hospitaist ROADWAY TECHNICIAN: Jacklyn Acosta HPI: Called to jayshree 33 yo male with PMHx as noted below. Presents to [facility] ED w/ c/o abd pain x 6 days w/ asscoiated n/v (nbnb). States this all started on morning. Pain (pt points to her epigastric region) was 6/10. Pt has pertinent surgical histroy of appendectomy, csxn x2 and an exlap w/ small bowel resection by Dr. Gray 03/15/19. Currently, in bed at 30 degrees with NGT set to ILWCS. States she passed flatus last night yet still has c/o pain around her umbilical region. Reports he last BM (formed stool) was yesterday morning. Still n/v but able to quell with antiemetics. Denies CP, palpitations, ORDOÑEZ, SOB, CONWAY, hematemisis, melena or hematichazia. Following image studies: AXR 03/25/19:moderate dilation of SB loops w/ + afl consistent w/ ileus vs. sbo CT A/P 03/25/19: sever mid-distal SBO likely at site of previous resection ( midpelvis). No clear transition point identified. PMHx: Anemia Asthma IBS Anxiety Endometriosis DM GERD Celiac Disease Sciatica PSHx: Appendectomy Csxn x2 Small bowel resection (03/15/[address] Gray) 2/2 ntussusception Home Meds Paroxetine HCl [Paxil -] 40 mg PO HS 10/29/13 Alprazolam [Xanax] 2 mg PO TID 12/29/14 Ranitidine [Zantac -] 150 mg PO BID 01/30/18 Azithromycin [Zithromax 250mg Tablets -] 250 mg PO UTDICT #6 tab 05/14/18 Glipizide [Glipizide Xl] 5 mg PO DAILY 05/14/18 Guaifenesin Dm [Robitussin Dm -] 10 ml PO Q4H PRN #120 ml 05/14/18 Methylprednisolone [Medrol Dose Ángel] 4 mg PO ASDIR #21 tablet 05/14/18 Oxycodone HCl/Acetaminophen [Percocet 10-325 mg Tablet] 1 each PO QID 07/28/18 Sulfamethoxazole/Trimethoprim [Bactrim Ds -] 1 tab PO BID #14 tablet 07/31/18 Allergies NKDA ROS: CONSTITUTIONAL: Absent: fever, chills, diaphoresis, weight change CARDIOVASCULAR: Absent: syncope, irregular heart rate, lightheadedness, peripheral edema RESPIRATORY: Absent: cough, wheezing, stridor, hemoptysis GASTROINTESTINAL:Absent: see hpi GENITOURINARY: Absent: frequency, urgency, hesitancy,flank pain MUSCULOSKELETAL: Absent: myalgia, arthralgia, joint swelling, back pain, neck pain SKIN: Absent: rash, itching, pallor HEMATOLOGIC/IMMUNOLOGIC: Absent: easy bleeding, easy bruising, lymphadenopathy NEUROLOGIC: Absent: focal weakness, paresthesias, dizziness, unsteady gait, seizure, mental status changes, PSYCHIATRIC: Absent: depression, suicidal or homicidal ideation, hallucinations. PE: GENERAL: Awake, alert, and fully oriented, nad. HEAD: nc. at. EYES: PERRL, sclera anicteric, conjunctiva clear. NECK: Normal ROM, supple without lymphadenopathy, JVD, or masses. LUNGS: unlabored respirations. SpO2 100% on RA HEART: RRR ABDOMEN: old vertical/midline scar healed well. Softly distended, mild ttp supraumbilical region. bs absent. no guarding MUSCULOSKELETAL: No CVA tenderness. UE: 2+ pulses, warm, well-perfused. No cyanosis. Cap refill <2 seconds. No peripheral edema. LE: 2+ pulses, warm, well-perfused. No calf tenderness. No peripheral edema. PSYCH: Cooperative. Good eye contact. Appropriate mood and affect. Last Vital Signs Temp Pulse Resp BP Pulse Ox 99.8 F H 78 18 101/64 93 L 03/26/19 05:42 03/26/19 05:42 03/26/19 05:42 03/26/19 05:42 03/26/19 05:42 CBC, BMP 03/26/19 07:17 03/26/19 07:17 Hepatic Panel Total Bilirubin 0.6 mg/dl (0.2-1) 03/25/19 21:50 AST 24 U/L (15-37) 03/25/19 21:50 ALT 14 U/L (13-61) 03/25/19 21:50 Alkaline Phosphatase 67 U/L (45-117) 03/25/19 21:50 Albumin 4.6 g/dl (3.4-5.0) 03/25/19 21:50 Problem List - Problems (1) Small bowel obstruction Assessment/Plan: 33 yo female presents w/ abd pain w/ associated n/v. Radiologic studies confirm SBO (AXR & ABD CT). Patient has h/o multiple abd surgery (appendectomy, csxn x2 and SB resection secondary to intussception). She is non-toxic apperaing. AVSS. Afeb. 1. NGT to ILWCS 2. NPO 3. IVF 4. GI PPX 5. DVT PPX 6. Serial ABD exams 7. Serial AXR 8. OOB to chair 9. Replete elytes PRN 10. CBC/BMP in AM 11. Continue conservative management at this time. If patient fails to progress after conservative measures she may need a diagnostic laparscopy. Surgery Team to continue following Above plan discussed with Dr. Lafleur and agrees. Code(s): K56.609 - UNSP INTESTNL OBST, UNSP TO PARTIAL VERSUS COMPLETE OBST (2) Anxiety Code(s): F41.9 - ANXIETY DISORDER, UNSPECIFIED (3) Asthma Code(s): J45.909 - UNSPECIFIED ASTHMA, UNCOMPLICATED Qualifiers: Asthma severity: mild Asthma complication type: uncomplicated (4) Chronic anemia Code(s): D64.9 - ANEMIA, UNSPECIFIED (5) Diabetes Code(s): E11.9 - TYPE 2 DIABETES MELLITUS WITHOUT COMPLICATIONS Qualifiers: Diabetes mellitus type: other specified (including SANG) Diabetes mellitus senior care insulin use: without senior care use Diabetes mellitus complication status: without complication Qualified Code(s): E13.9 - Other specified diabetes mellitus without complications (6) Endometriosis Code(s): N80.9 - ENDOMETRIOSIS, UNSPECIFIED (7) GERD (gastroesophageal reflux disease) Code(s): K21.9 - GASTRO-ESOPHAGEAL REFLUX DISEASE WITHOUT ESOPHAGITIS (8) IBS (irritable bowel syndrome) Code(s): K58.9 - IRRITABLE BOWEL SYNDROME WITHOUT DIARRHEA Visit type - Case Type Case Type: ED Admission - Emergency Emergency Visit: Yes ED Registration Date: 03/26/19 Care time: The patient presented to the Emergency Department on the above date and was hospitalized for further evaluation of their emergent condition. - New patient This patient is new to me today: Yes Date on this admission: 03/26/19
[2019-03-26] MEDS ORDERED: ALPRAZolam 2 MG TABLET PO PRN (08:40)
[2019-03-26] MEDS: HEPARIN NA (PORCINE) 5,000 UNITS/ML 1ML VIAL SQ SCH ×2 (09:24→21:22)
--- NOTE | 2019-03-26 10:44 | EKG ---
Test Reason : Blood Pressure : / mmHG Vent. Rate : 068 BPM Atrial Rate : 068 BPM P-R Int : 218 ms QRS Dur : 092 ms QT Int : 436 ms P-R-T Axes : 074 087 029 degrees QTc Int : 463 ms SINUS RHYTHM WITH 1ST DEGREE A-V BLOCK INCOMPLETE RIGHT BUNDLE BRANCH BLOCK T WAVE ABNORMALITY, CONSIDER ANTERIOR ISCHEMIA ABNORMAL ECG WHEN COMPARED WITH ECG OF 27-JUL-2018 23:29, NO SIGNIFICANT CHANGE WAS FOUND Confirmed by PITO BOOTH MD ([id number]) on 03/26/2019 10:44:33 AM Referred By: MD HERNANDEZ Confirmed By:PITO BOOTH MD
[2019-03-26] MEDS ORDERED: LORazepam 2 MG/ML SDV VIAL ONE (11:19)
[2019-03-26] MEDS: LORazepam 2 MG/ML SDV VIAL IVPUSH PRN ×2 (11:30→19:07)
[2019-03-26] MEDS ORDERED: SODIUM CHLORIDE 1,000 ML IV SCH (17:00)
[2019-03-26] MEDS: KCL 10 MEQ IVPB 10 MEQ/100 ML INFUS.BAG IVPB SCH ×3 (17:11→19:01)
--- NOTE | 2019-03-26 17:52 | PN ---
Progress Note (short form) - Note Progress Note: Attending Surgeon Patient seen and evaluated; chart reviewed; concur w/a/p as outlined by CHRIS Pelletier ; continue present tx as per orders. Kyle Lafleur MD FACS
[2019-03-26] MEDS: morphine SULFATE 4 MG/ML VIAL IVPUSH PRN (18:31)
[2019-03-26] MEDS: PARoxetine HCL 20 MG TABLET PO SCH (21:21)
[2019-03-26] MEDS: INSULIN SLIDING SCALE (NOVOLOG) 1 VIAL SQ SCH (21:30)
[2019-03-27] MEDS: morphine SULFATE 4 MG/ML VIAL IVPUSH PRN ×3 (01:41→16:30)
[2019-03-27] MEDS: LORazepam 2 MG/ML SDV VIAL IVPUSH PRN ×3 (03:00→19:42)
[2019-03-27] MEDS: ONDANSETRON 4 MG/2 ML VIAL IVPUSH PRN ×3 (07:05→23:29)
[2019-03-27] MEDS: INSULIN SLIDING SCALE (NOVOLOG) 1 VIAL SQ SCH ×4 (07:14→21:04)
[2019-03-27 08:17] LABS: BASO % 0.3 % (0-2.0); EOS % 2.8 % (0-4.5); HEMATOCRIT 30.6 % (32.4-45.2); LYMPH % 32.1 % (8-40); MCH 26.9 pg (25.7-33.7); MCHC 32.8 g/dl (32.0-36.0); MEAN CELL VOLUME 82.1 fl (80-96); MEAN PLT VOLUME 10.4 fl (7.5-11.1); MONO % 18.3 % (3.8-10.2); NEUT % 46.5 % (42.8-82.8); PLATELET COUNT 145 K/MM3 (134-434); RBC 3.73 M/mm3 (3.60-5.2); RDW 17.4 % (11.6-15.6); WHITE BLOOD COUNT 5.8 K/mm3 (4.0-10.8)
[2019-03-27 08:20] LABS: ALBUMIN 3.7 g/dl (3.4-5.0); BILIRUBIN,TOTAL 0.3 mg/dl (0.2-1); CALCIUM 8.8 mg/dl (8.5-10); CREATININE 0.5 mg/dl (0.55-1.3); MAGNESIUM 1.8 mg/dL (1.8-2.4); PHOSPHOROUS 2.1 mg/dl (2.5-4.9)
[2019-03-27] MEDS ORDERED: POTASSIUM CHLORIDE IVPB STA (08:32)
[2019-03-27] MEDS ORDERED: SODIUM CHLORIDE IVPB STA (08:32)
[2019-03-27] MEDS: KCL 10 MEQ IVPB 10 MEQ/100 ML INFUS.BAG IVPB SCH ×3 (09:00→13:29)
[2019-03-27 09:29] LABS: POTASSIUM 2.9 mmol/L (3.5-5.1)
--- NOTE | 2019-03-27 09:57 | PN ---
Progress Note (short form) - Note Progress Note: Pt with some nausea yesterday, she states that she passed flatus and had a liquid bowel movment. Vital Signs Period Temp Pulse Resp BP Sys/Drummond Pulse Ox Last 24 Hr 97.3 F-99.6 F 59-81 16-18 89-104/55-64 92-94 NGT: 1200 ml light green material GEN: A&0x3, NAD CV:RRR Lungs: CTA b/l ABD: soft, slight distended, midline tenderness. No rebound. AXR: a/f levels CBC, BMP 03/27/19 07:47 03/27/19 07:47 A/p: 33 yo female h/o diagnostic lap now with SBO Continue NGT to low wall suction potassium being repleted, follow daily chem 10 AXR reveals SB a/f levels, repeat xray ordered for the am D/w Dr. Lafleur
[2019-03-27] MEDS ORDERED: SODIUM CHLORIDE 1,000 ML with POTASSIUM CHLORIDE 20 MEQ IVPB SCH (10:15)
[2019-03-27] MEDS: HEPARIN NA (PORCINE) 5,000 UNITS/ML 1ML VIAL SQ SCH ×2 (10:29→21:13)
[2019-03-27] MEDS ORDERED: SODIUM CHLORIDE 0.9%/KCL 20 MEQ/1,000 ML INFUS.BAG IV SCH (12:00)
[2019-03-27 20:20] LABS: CALCIUM 8.9 mg/dl (8.5-10); CREATININE 0.7 mg/dl (0.55-1.3); POTASSIUM 3.8 mmol/L (3.5-5.1)
[2019-03-27] MEDS: PARoxetine HCL 20 MG TABLET PO SCH (21:14)
--- NOTE | 2019-03-27 22:27 | PN ---
Physical Exam: SUBJECTIVE: Patient seen and examined OBJECTIVE: Vital Signs Period Temp Pulse Resp BP Sys/Drummond Pulse Ox Last 24 Hr 97.3 F-98.9 F 55-81 18-18 97-102/58-64 93-98 GENERAL: The patient is awake, alert, and fully oriented, in no acute distress. HEAD: Normal with no signs of trauma. EYES: PERRL, extraocular movements intact, sclera anicteric, conjunctiva clear. No ptosis. ENT: Ears normal, nares patent, oropharynx clear without exudates, moist mucous membranes. NECK: Trachea midline, full range of motion, supple. LUNGS: Breath sounds equal, clear to auscultation bilaterally, no wheezes, no crackles, no accessory muscle use. HEART: Regular rate and rhythm, S1, S2 without murmur, rub or gallop. ABDOMEN: Soft, nontender, nondistended, normoactive bowel sounds, no guarding, no rebound, no hepatosplenomegaly, no masses. EXTREMITIES: 2+ pulses, warm, well-perfused, no edema. NEUROLOGICAL: Cranial nerves II through XII grossly intact. Normal speech, gait not observed. PSYCH: Normal mood, normal affect. SKIN: Warm, dry, normal turgor, no rashes or lesions noted Laboratory Results - last 24 hr 03/27/19 03/27/19 03/27/19 06:54 07:47 07:47 WBC 5.8 RBC 3.73 Hgb 10.0 L Hct 30.6 L MCV 82.1 MCH 26.9 MCHC 32.8 RDW 17.4 H Plt Count 145 MPV 10.4 Absolute Neuts (auto) 2.6 Neutrophils % 46.5 Lymphocytes % 32.1 Monocytes % 18.3 H Eosinophils % 2.8 Basophils % 0.3 Sodium 134 L Potassium 2.9 L* Chloride 96 L Carbon Dioxide 28 Anion Gap 10 BUN 12.0 Creatinine 0.5 L Est GFR (CKD-EPI)AfAm 145.33 Est GFR (CKD-EPI)NonAf 125.39 POC Glucometer 151 Random Glucose 132 H Calcium 8.8 Phosphorus 2.1 L Magnesium 1.8 Total Bilirubin 0.3 AST 23 ALT 18 Alkaline Phosphatase 51 D Total Protein 7.0 Albumin 3.7 03/27/19 03/27/19 19:55 20:57 WBC RBC Hgb Hct MCV MCH MCHC RDW Plt Count MPV Absolute Neuts (auto) Neutrophils % Lymphocytes % Monocytes % Eosinophils % Basophils % Sodium 134 L Potassium 3.8 Chloride 97 L Carbon Dioxide 29 Anion Gap 8 BUN 11.0 Creatinine 0.7 Est GFR (CKD-EPI)AfAm 130.10 Est GFR (CKD-EPI)NonAf 112.25 POC Glucometer 129 Random Glucose 129 H Calcium 8.9 Phosphorus Magnesium Total Bilirubin AST ALT Alkaline Phosphatase Total Protein Albumin Active Medications Generic Name Dose Route Start Last Admin Trade Name Freq PRN Reason Stop Dose Admin Heparin Sodium (Porcine) 5,000 unit 03/26/19 10:00 03/27/19 21:13 Heparin - SQ 5,000 unit BID SASKIA Administration Potassium Chloride/Sodium Chloride 20 meq in 1,000 mls @ 125 mls/hr 03/27/19 12:00 03/27/19 13:31 Ns+20 Meq Kcl - IV 125 mls/hr ASDIR SASKIA Administration Insulin Aspart 1 vial 03/26/19 22:00 03/27/19 21:04 Novolog Vial Sliding Scale - SQ Not Given [facility] Protocol Lorazepam 2 mg 03/26/19 11:42 03/27/19 19:42 Ativan Injection - IVPUSH 2 mg Q8H PRN Administration ANXIETY Morphine Sulfate 4 mg 03/26/19 13:00 03/27/19 16:30 Morphine Sulfate IVPUSH 4 mg Q8H PRN Administration PAIN LEVEL 6-10 Ondansetron HCl 4 mg 03/26/19 01:42 03/27/19 13:09 Zofran Injection IVPUSH 03/30/19 23:59 4 mg Q6H PRN Administration NAUSEA Paroxetine HCl 40 mg 03/26/19 22:00 03/27/19 21:14 Paxil - PO 40 mg HS SASKIA Administration ASSESSMENT/PLAN:
[2019-03-28] MEDS: morphine SULFATE 4 MG/ML VIAL IVPUSH PRN (00:06)
[2019-03-28] MEDS ORDERED: morphine CARPU-JECT 2 MG/1 ML DISP.SYRIN IVPUSH ONE (00:58)
[2019-03-28] MEDS ORDERED: morphine SULFATE 4 MG/ML VIAL IVPUSH PRN (00:59)
[2019-03-28 03:24] VITALS: BP 110/59; PULSE 73; TEMP 98.3
--- NOTE | 2019-03-29 17:27 | DS ---
Physical Exam: SUBJECTIVE: Patient seen and examined. Tearful. Complaining of pain not being adequately controlled and wanting to leave AMA. Lengthy discussion about managing symptoms v. oversedation with large amounts of opiods. Patient agreed to plan to increase morphine from 4mg to 6mg q8 hours. Additional 2mg morphone given x 1 dose per plan. Fifteen minutes later patient left AMA. OBJECTIVE: Vital Signs Temperature 98.3 F 03/27/19 22:00 Pulse Rate 73 03/27/19 22:00 Respiratory Rate 18 03/27/19 22:00 Blood Pressure 110/59 L 03/27/19 22:00 O2 Sat by Pulse Oximetry (%) 98 03/27/19 21:00 PHYSICAL EXAM GENERAL: Awake, alert, and fully oriented. HEAD: Normal with no signs of trauma. EYES: Pupils equal, round and reactive to light, extraocular movements intact, sclera anicteric, conjunctiva clear. LUNGS: Breath sounds equal, clear to auscultation bilaterally. No wheezes, and no crackles. No accessory muscle use. HEART: Regular rate and rhythm, normal S1 and S2 ABDOMEN: Soft, diffusely tender MUSCULOSKELETAL: Normal range of motion at all joints. No bony deformities or tenderness. No CVA tenderness. UPPER EXTREMITIES: 2+ pulses, warm, well-perfused. No cyanosis. No clubbing. No peripheral edema. LOWER EXTREMITIES: 2+ pulses, warm, well-perfused. No calf tenderness. No peripheral edema. NEUROLOGICAL: Cranial nerves II-XII intact. Normal speech. LABS CBCD WBC 5.8 K/mm3 (4.0-10.8) 03/27/19 07:47 RBC 3.73 M/mm3 (3.60-5.2) 03/27/19 07:47 Hgb 10.0 GM/dl (10.7-15.3) L 03/27/19 07:47 Hct 30.6 % (32.4-45.2) L 03/27/19 07:47 MCV 82.1 fl (80-96) 03/27/19 07:47 MCHC 32.8 g/dl (32.0-36.0) 03/27/19 07:47 RDW 17.4 % (11.6-15.6) H 03/27/19 07:47 Plt Count 145 K/MM3 (134-434) 03/27/19 07:47 MPV 10.4 fl (7.5-11.1) 03/27/19 07:47 CMP Sodium 134 mmol/L (136-145) L 03/27/19 19:55 Potassium 3.8 mmol/L (3.5-5.1) 03/27/19 19:55 Chloride 97 mmol/L (98-107) L 03/27/19 19:55 Carbon Dioxide 29 mmol/L (21-32) 03/27/19 19:55 Anion Gap 8 MMOL/L (8-16) 03/27/19 19:55 BUN 11.0 mg/dl (7-18) 03/27/19 19:55 Creatinine 0.7 mg/dl (0.55-1.3) 03/27/19 19:55 Calcium 8.9 mg/dl (8.5-10) 03/27/19 19:55 Total Bilirubin 0.3 mg/dl (0.2-1) 03/27/19 07:47 AST 23 U/L (15-37) 03/27/19 07:47 ALT 18 U/L (13-61) 03/27/19 07:47 Alkaline Phosphatase 51 U/L (45-117) D 03/27/19 07:47 Total Protein 7.0 g/dl (6.4-8.2) 03/27/19 07:47 Albumin 3.7 g/dl (3.4-5.0) 03/27/19 07:47 HOSPITAL COURSE: Date of Admission:03/25/19 Date of Discharge: 03/29/19 Pre hospital course 33 year-old female with a PMH significant for anxiety, chronic pain, GERD, endometriosis, and s/p small bowel resection 2/2 small bowel intussuception ( 2013) who presents to the emergency department with 6 days of abdominal pain, back pain, and vomiting. The patient reports on morning she had an onset of epigastric-umbilical pain. That evening, she started to have episodes of vomiting. The patient reports the vomiting has been worsening, with no improvement with soup, crackers, or fay gopi. The patient reports the vomiting has further exacerbated into projectile vomiting with content coming out of from nose. The patient reports associated symptoms of pain with voiding. The patient reports secondary to the vomiting, she was unable to take her medication. ER course (1) CT: severe mid to distal SBO Subsequent hospital course 33 year-old female with a PMH significant for anxiety, chronic pain, GERD, endometriosis, and s/p small bowel resection 2/2 small bowel intussuception ( 2013), admitted for SBO. SBO --03/25: CT: severe mid to distal SBO --03/27: abdominal xray today: +SBO --NGT to LWS was continued --IV fluids were continued --signed out AMA Hypokalemia --repleted Anxiety Chronic pain --based on IStop search, patient takes oxycodone 60mg and alprazolam 6mg daily --converted alprazolam to IV ativan --convert oxycodone to morphine and start at 50% dose, increased as indicated Left AMA. Minutes to complete discharge: 35 Discharge Summary Problems reviewed: Yes Reason For Visit: SMALL BOWEL OBSTRUCTION. Condition: Fair - Instructions Referrals: Marcellus Dorman MD [Primary Care Provider] - Disposition: AGAINST MEDICAL ADVICE - Home Medications Comprehensive Discharge Medication List: Ambulatory Orders Paroxetine HCl [Paxil -] 40 mg PO HS 10/29/13 Alprazolam [Xanax] 2 mg PO QID 12/29/14 Ranitidine [Zantac -] 150 mg PO PRN 01/30/18 Glipizide [Glipizide Xl] 10 mg PO DAILY 05/14/18 Oxycodone HCl/Acetaminophen [Percocet 10-325 mg Tablet] 2 each PO TID 07/28/18 Glimepiride 4 mg PO BID 03/26/19 Insulin Glargine,Hum.rec.anlog [Basaglar Kwikpen U-100] 10 unit SQ DAILY Ondansetron HCl [Zofran] 8 mg PO PRN 03/26/19 Pioglitazone HCl 30 mg PO DAILY 03/26/19 This patient is new to me today: No Emergency Visit: Yes ED Registration Date: 03/25/19 Care time: The patient presented to the Emergency Department on the above date and was hospitalized for further evaluation of their emergent condition. Critical Care patient: No - Discharge Referral Referred to [facility] Med P.C[facility] No
== END 2019-03-28 02:00 | disposition left against medical advice (07) | DRG 247 ==
LOC: FER 21:03 → FM/S 23:45 → UNDOADMIN 03-26 00:13 → FM/S 03-26 03:28
PROVIDERS: ADMIT Internal Medicine; ATTEND Nurse Practitioner Acute Care
DX: K56.609 Unspecified intestinal obstruction, unspecified as to partial versus complete obstruction (principal); K21.9 Gastro-esophageal reflux disease without esophagitis; E11.9 Type 2 diabetes mellitus without complications; G89.29 Other chronic pain; K90.0 Celiac disease; K58.9 Irritable bowel syndrome, unspecified; N80.9 Endometriosis, unspecified; E87.6 Hypokalemia; F41.9 Anxiety disorder, unspecified; D64.9 Anemia, unspecified; F17.210 Nicotine dependence, cigarettes, uncomplicated; M54.9 Dorsalgia, unspecified
CPT/HCPCS: 36415; 71045-TC-FY; 74019-TC-FY; 74177-TC; 80048; 80053; 81003; 81015; 82962; 83605; 83690; 83735; 84100; 84703; 85025; 85027; 93005; 99285-25; J1644; J7030; Q9967

== ENCOUNTER 2021-05-14 02:29 | Inpatient (IN) | payer OTHER ==
[2021-05-14] MEDS ORDERED: INSULIN REGULAR HUMAN 100 UNITS/ML *VIAL IVPUSH ONE (03:06)
[2021-05-14] MEDS ORDERED: MAGNESIUM SULF 50% (8.12 MEQ/2 ML-1 GM VIAL) IVPB ONE (03:07)
[2021-05-14] MEDS ORDERED: SODIUM CHLORIDE 0.9% 500 ML INFUS.BAG IV ONE ×2 (03:15)
[2021-05-14] MEDS ORDERED: MAGNESIUM SULFATE IN WATER 2 GM/50 ML IVPB IVPB ONE (03:23)
[2021-05-14 03:28] LABS: VENOUS BASE EXCESS -25.4 mmol/L (-2-2); VENOUS O2 SATURATION 50.2 % (70-80); VENOUS PCO2 30.1 mmHg (38-52)
[2021-05-14 03:31] LABS: BASO % 0.5 % (0-2.0); EOS % 0.1 % (0-4.5); HEMATOCRIT 46.7 % (32.4-45.2); HEMOGLOBIN 13.7 GM/dL (10.7-15.3); LYMPH % 11.6 % (8-40); MCH 29.9 pg (25.7-33.7); MCHC 29.3 g/dl (32.0-36.0); MEAN CELL VOLUME 102.1 fl (80-96); MEAN PLT VOLUME 10.4 fl (7.5-11.1); MONO % 9.9 % (3.8-10.2); NEUT % 77.9 % (42.8-82.8); PLATELET COUNT 338 10^3/uL (134-434); RBC 4.58 M/mm3 (3.60-5.2); VENOUS PH 6.935 (7.310-7.410); WHITE BLOOD COUNT 22.8 K/mm3 (4.0-10.0)
[2021-05-14] MEDS ORDERED: SODIUM BICARBONATE IV ONE (03:35)
[2021-05-14] MEDS ORDERED: SODIUM CHLORIDE 0.45% IV ONE (03:35)
[2021-05-14] MEDS: KCL 10 MEQ IVPB 10 MEQ/100 ML INFUS.BAG IVPB SCH ×6 (03:39→20:52)
[2021-05-14] MEDS ORDERED: SODIUM BICARBONATE 8.4% 50 MEQ/50 ML VIAL ONE (03:39)
[2021-05-14 04:01] LABS: CHLORIDE 100 mmol/L (98-107); SODIUM 131 mmol/L (136-145)
[2021-05-14 04:03] LABS: CALCIUM 9.9 mg/dL (8.5-10.1)
[2021-05-14 04:04] LABS: ALBUMIN 3.6 g/dl (3.4-5.0); ANION GAP 23 MMOL/L (8-16); BLOOD UREA NITROGEN 10.4 mg/dL (7-18); CO2 8 mmol/L (21-32)
[2021-05-14 04:07] LABS: CREATININE 1.4 mg/dL (0.55-1.3); SGOT/AST 24 U/L (15-37); SGPT/ALT 18 U/L (13-61)
[2021-05-14 04:08] LABS: BILIRUBIN,TOTAL 0.5 mg/dL (0.2-1); TOT PROT 7.6 g/dl (6.4-8.2)
[2021-05-14 04:09] LABS: ALK PHOS 184 U/L (45-117)
[2021-05-14] MEDS ORDERED: INSULIN REGULAR HUMAN 100 UNITS/ML *VIAL* (FOR IVP) IVPUSH ONE (04:09)
[2021-05-14] MEDS ORDERED: POTASSIUM CHLORIDE 10 MEQ in SODIUM CHLORIDE 1,000 ML IVPB SCH (04:15)
[2021-05-14 04:18] LABS: EPI CELLS 3 /uL (0-25.1); HYALINE CASTS 0 /uL (0-3.1); PH,URINE 5.5 (5.0-8.0); URINE APPEARANCE CLEAR; URINE BACTERIA 31 /uL (0-1359); URINE BILIRUBIN NEGATIVE (NEGATIVE); URINE COLOR YELLOW; URINE GLUCOSE (UA) 3+ (NEGATIVE); URINE KETONE 4+ (NEGATIVE); URINE LEUK ESTERASE NEGATIVE (NEGATIVE); URINE NITRITE NEGATIVE (NEGATIVE); URINE PROTEIN 1+ (NEGATIVE); URINE RBC 7 /uL (0-23.9); URINE UROBILINOGEN 0.2 mg/dL (0.2-1.0); URINE WBC 3 /uL (0-25.8)
[2021-05-14 04:23] LABS: ANISOCYTOSIS 1+; MACROCYTOSIS 1+; PLATELET ESTIMATE NORMAL
[2021-05-14] MEDS ORDERED: LACTATED RINGERS SOLUTION 1,000 ML/1,000 ML INFUS.BAG IV SCH (04:30)
[2021-05-14] MEDS: INSULIN REGULAR 100 UNITS in SODIUM CHLORIDE 99 ML IVPB SCH (04:38)
[2021-05-14 05:07] LABS: GLUCOSE,RANDOM 749 mg/dL (74-106)
[2021-05-14] MEDS ORDERED: PIPERACILLIN/TAZOB 3.375 GM 3.375 GM in DEXTROSE 5%-WATER - 50 ML IVPB ONE (06:34)
[2021-05-14] MEDS ORDERED: LACTATED RINGERS SOLUTION 1,000 ML/1,000 ML INFUS.BAG IV STA (06:45)
[2021-05-14 07:26] LABS: VENOUS O2 SATURATION 40.9 % (70-80); VENOUS PCO2 35.8 mmHg (38-52)
[2021-05-14 07:40] LABS: MAGNESIUM 2.9 mg/dL (1.8-2.4)
[2021-05-14 07:44] LABS: VENOUS PH 7.143 (7.310-7.410)
[2021-05-14 07:45] LABS: PHOSPHOROUS 0.9 mg/dL (2.5-4.9)
[2021-05-14] MEDS ORDERED: SODIUM PHOSPHATE - 20 MM in SODIUM CHLORIDE 250 ML IVPB ONE (08:11)
[2021-05-14 08:16] LABS: COCAINE, UR NEGATIVE (NEGATIVE); OPIATES, URI NEGATIVE (NEGATIVE); URINE BARBITURATES NEGATIVE (NEGATIVE)
[2021-05-14 08:17] LABS: METHADONE, UR NEGATIVE (NEGATIVE); PHENCYCLIDINE,URINE NEGATIVE (NEGATIVE)
[2021-05-14 08:20] LABS: URINE AMPHETAMINES NEGATIVE (NEGATIVE); URINE BENZODIAZEPINES POSITIVE (NEGATIVE)
[2021-05-14] MEDS ORDERED: SODIUM PHOSPHATE - 40 MM in SODIUM CHLORIDE 500 ML IVPB ONE (08:23)
[2021-05-14 08:35] LABS: CHLORIDE 99 mmol/L (98-107); SODIUM 134 mmol/L (136-145)
[2021-05-14 08:37] LABS: CO2 7 mmol/L (21-32)
[2021-05-14 08:38] LABS: ANION GAP 28 MMOL/L (8-16); CALCIUM 10.1 mg/dL (8.5-10.1)
[2021-05-14 08:41] LABS: CREATININE 1.5 mg/dL (0.55-1.3)
[2021-05-14 08:46] LABS: GLUCOSE,RANDOM 698 mg/dL (74-106)
[2021-05-14] MEDS: ENOXAPARIN NA (PORCINE) 40 MG/0.4 ML DISP.SYRIN SQ SCH (09:11)
[2021-05-14] MEDS: MUPIROCIN 2% TOPICAL OINTMENT FOR DECOLONIZATION NS SCH ×2 (09:11→21:02)
[2021-05-14] MEDS: PANTOPRAZOLE SODIUM 40 MG VIAL IVPUSH SCH (09:11)
[2021-05-14] MEDS ORDERED: morphine SULFATE 4 MG/ML VIAL ONE (11:43)
[2021-05-14] MEDS ORDERED: morphine CARPU-JECT 2 MG/1 ML DISP.SYRIN IVPUSH PRN (11:49)
[2021-05-14] MEDS ORDERED: D5-NS + 20 MEQ KCL - 20 MEQ/1,000 ML INFUS.BAG IV SCH (12:00)
[2021-05-14] MEDS ORDERED: LORazepam 2 MG/ML SDV VIAL IVPUSH ONE (12:15)
[2021-05-14 13:19] LABS: BLOOD UREA NITROGEN 12.6 mg/dL (7-18)
[2021-05-14 13:21] LABS: CREATININE 0.9 mg/dL (0.55-1.3)
[2021-05-14 13:26] LABS: CALCIUM 8.2 mg/dL (8.5-10.1)
[2021-05-14] MEDS ORDERED: D5-1/2NS+10 MEQ KCL - 10 MEQ/1,000 ML INFUS.BAG IV SCH ×2 (14:30→19:35)
[2021-05-14] MEDS ORDERED: DEXTROSE 50%-WATER 25 GM/50 ML DISP.SYRIN ONE (17:13)
[2021-05-14] MEDS ORDERED: DEXTROSE 50%-WATER - 25 GM/50 ML VIAL IVPUSH ONE (17:14)
[2021-05-14] MEDS ORDERED: DEXTROSE 50%-WATER - 25 GM/50 ML VIAL IVPUSH PRN (17:49)
[2021-05-14 19:06] LABS: CALCIUM 8.2 mg/dL (8.5-10.1)
[2021-05-14 19:07] LABS: BLOOD UREA NITROGEN 15.3 mg/dL (7-18); MAGNESIUM 2.2 mg/dL (1.8-2.4)
[2021-05-14 19:10] LABS: CREATININE 0.8 mg/dL (0.55-1.3); PHOSPHOROUS 2.7 mg/dL (2.5-4.9)
[2021-05-14] MEDS ORDERED: LORazepam 2 MG/ML SDV VIAL IVPUSH PRN (19:36)
[2021-05-14] MEDS ORDERED: CHLORHEXIDINE GLUCONATE 4% CLEANSER FOR DECOLONIZATION TP SCH (22:00)
[2021-05-15 01:56] LABS: CALCIUM 8.5 mg/dL (8.5-10.1)
[2021-05-15 01:57] LABS: BLOOD UREA NITROGEN 16.6 mg/dL (7-18)
[2021-05-15 02:00] LABS: CREATININE 0.7 mg/dL (0.55-1.3)
[2021-05-15] MEDS ORDERED: D5-1/2NS+10 MEQ KCL - 10 MEQ/1,000 ML INFUS.BAG IV SCH (02:13)
[2021-05-15] MEDS ORDERED: LORazepam 2 MG/ML SDV VIAL IVPUSH ONE ×2 (02:52→23:01)
[2021-05-15] MEDS ORDERED: DEXTROSE 50%-WATER - 25 GM/50 ML VIAL ONE (05:16)
[2021-05-15] MEDS: INSULIN REGULAR 100 UNITS in SODIUM CHLORIDE 99 ML IVPB SCH (05:19)
[2021-05-15 07:25] LABS: BASO % 0.2 % (0-2.0); EOS % 0.5 % (0-4.5); HEMATOCRIT 31.7 % (32.4-45.2); HEMOGLOBIN 10.2 GM/dL (10.7-15.3); LYMPH % 19.6 % (8-40); MCH 30.3 pg (25.7-33.7); MCHC 32.1 g/dl (32.0-36.0); MEAN CELL VOLUME 94.2 fl (80-96); MEAN PLT VOLUME 10.3 fl (7.5-11.1); MONO % 7.6 % (3.8-10.2); NEUT % 72.1 % (42.8-82.8); PLATELET COUNT 181 10^3/uL (134-434); RBC 3.37 M/mm3 (3.60-5.2); RDW 14.6 % (11.6-15.6); WHITE BLOOD COUNT 10.6 K/mm3 (4.0-10.0)
[2021-05-15 07:49] LABS: CHLORIDE 113 mmol/L (98-107); SODIUM 142 mmol/L (136-145)
[2021-05-15 07:52] LABS: CALCIUM 8.2 mg/dL (8.5-10.1)
[2021-05-15 07:53] LABS: ANION GAP 6 MMOL/L (8-16); CO2 22 mmol/L (21-32); GLUCOSE,RANDOM 172 mg/dL (74-106)
[2021-05-15 07:56] LABS: CREATININE 0.6 mg/dL (0.55-1.3); SGOT/AST 33 U/L (15-37); SGPT/ALT 16 U/L (13-61)
[2021-05-15 07:57] LABS: BILIRUBIN,TOTAL 0.3 mg/dL (0.2-1)
[2021-05-15 08:23] LABS: ALBUMIN 2.3 g/dl (3.4-5.0); ALK PHOS 89 U/L (45-117); TOT PROT 5.1 g/dl (6.4-8.2)
[2021-05-15] MEDS ORDERED: NAPH,MB-DB/K PH,MBDB POWDER PACKET PO ONE (08:45)
[2021-05-15] MEDS: ENOXAPARIN NA (PORCINE) 40 MG/0.4 ML DISP.SYRIN SQ SCH (09:18)
[2021-05-15] MEDS: PANTOPRAZOLE SODIUM 40 MG VIAL IVPUSH SCH (09:18)
[2021-05-15] MEDS: MUPIROCIN 2% TOPICAL OINTMENT FOR DECOLONIZATION NS SCH (09:18)
[2021-05-15] MEDS ORDERED: POTASSIUM PHOSPHATE 15 MM in SODIUM CHLORIDE 250 ML IVPB ONE (09:30)
[2021-05-15] MEDS ORDERED: INSULIN (LEVEMIR) 100 UNITS/ML UNITS SQ SCH (12:00)
[2021-05-15] MEDS ORDERED: DEXTROSE 50%-WATER - 25 GM/50 ML VIAL IVPUSH PRN (13:37)
[2021-05-15] MEDS: INSULIN SLIDING SCALE (NOVOLOG) 1 VIAL SQ SCH ×2 (15:43→21:35)
[2021-05-15] MEDS ORDERED: oxyCODONE HCL 5 MG TABLET PO ONE (16:09)
[2021-05-15] MEDS ORDERED: ACETAMINOPHEN 1000 MG/100 ML BAG IVPB ONE (16:10)
[2021-05-15] MEDS: LORazepam 1 MG TABLET PO PRN (16:24)
[2021-05-15] MEDS ORDERED: INSULIN SLIDING SCALE (NOVOLOG) 1 VIAL SQ SCH (16:30)
[2021-05-15] MEDS ORDERED: POTASSIUM PHOSPHATE 30 MM in SODIUM CHLORIDE 250 ML IVPB ONE (18:00)
[2021-05-15] MEDS ORDERED: CHLORHEXIDINE GLUCONATE 4% CLEANSER FOR DECOLONIZATION TP SCH (22:00)
[2021-05-16] MEDS: INSULIN (LEVEMIR) 100 UNITS/ML UNITS SQ SCH (06:25)
[2021-05-16] MEDS: INSULIN SLIDING SCALE (NOVOLOG) 1 VIAL SQ SCH ×4 (06:26→22:51)
[2021-05-16] MEDS: LORazepam 1 MG TABLET PO PRN ×2 (08:53→21:32)
[2021-05-16] MEDS ORDERED: PANTOPRAZOLE SODIUM 40 MG VIAL IVPUSH SCH (10:00)
[2021-05-16] MEDS: ONDANSETRON 4 MG/2 ML VIAL IVPUSH PRN (10:10)
[2021-05-16] MEDS: ENOXAPARIN NA (PORCINE) 40 MG/0.4 ML DISP.SYRIN SQ SCH (12:13)
[2021-05-16 12:45] LABS: BASO % 0.1 % (0-2.0); EOS % 0.5 % (0-4.5); HEMATOCRIT 28.7 % (32.4-45.2); HEMOGLOBIN 9.5 GM/dL (10.7-15.3); LYMPH % 16.9 % (8-40); MCH 30.4 pg (25.7-33.7); MCHC 32.9 g/dl (32.0-36.0); MEAN CELL VOLUME 92.3 fl (80-96); MEAN PLT VOLUME 9.8 fl (7.5-11.1); MONO % 5.4 % (3.8-10.2); NEUT % 77.1 % (42.8-82.8); PLATELET COUNT 154 10^3/uL (134-434); RBC 3.11 M/mm3 (3.60-5.2); RDW 14.5 % (11.6-15.6); WHITE BLOOD COUNT 7.8 K/mm3 (4.0-10.0)
[2021-05-16 13:10] LABS: ALBUMIN 2.4 g/dl (3.4-5.0); CALCIUM 8.3 mg/dL (8.5-10.1)
[2021-05-16 13:12] LABS: BLOOD UREA NITROGEN 5.2 mg/dL (7-18)
[2021-05-16 13:13] LABS: PHOSPHOROUS 2.6 mg/dL (2.5-4.9)
[2021-05-16 13:14] LABS: CREATININE 0.3 mg/dL (0.55-1.3)
[2021-05-16 13:15] LABS: TOT PROT 5.2 g/dl (6.4-8.2)
[2021-05-16 13:27] LABS: BILIRUBIN,TOTAL 0.5 mg/dL (0.2-1)
[2021-05-16 14:16] VITALS: BMI 20.5
[2021-05-16] MEDS ORDERED: LORazepam 1 MG TABLET PO ONE (15:21)
[2021-05-17] MEDS: ONDANSETRON 4 MG/2 ML VIAL IVPUSH PRN (02:31)
[2021-05-17] MEDS: LORazepam 1 MG TABLET PO PRN ×3 (07:09→22:05)
[2021-05-17] MEDS: INSULIN (LEVEMIR) 100 UNITS/ML UNITS SQ SCH (07:10)
[2021-05-17] MEDS: INSULIN SLIDING SCALE (NOVOLOG) 1 VIAL SQ SCH ×4 (07:14→21:34)
[2021-05-17] MEDS: ENOXAPARIN NA (PORCINE) 40 MG/0.4 ML DISP.SYRIN SQ SCH (09:25)
[2021-05-17] MEDS: PANTOPRAZOLE 40 MG TABLET PO SCH (09:25)
[2021-05-17 09:43] LABS: BASO % 0.2 % (0-2.0); EOS % 1.5 % (0-4.5); HEMATOCRIT 28.9 % (32.4-45.2); HEMOGLOBIN 9.7 GM/dL (10.7-15.3); LYMPH % 18.7 % (8-40); MCH 30.7 pg (25.7-33.7); MCHC 33.6 g/dl (32.0-36.0); MEAN CELL VOLUME 91.2 fl (80-96); MEAN PLT VOLUME 9.2 fl (7.5-11.1); MONO % 5.7 % (3.8-10.2); NEUT % 73.9 % (42.8-82.8); PLATELET COUNT 147 10^3/uL (134-434); RBC 3.17 M/mm3 (3.60-5.2); RDW 14.1 % (11.6-15.6); WHITE BLOOD COUNT 6.6 K/mm3 (4.0-10.0)
[2021-05-17 10:19] LABS: CALCIUM 8.7 mg/dL (8.5-10.1)
[2021-05-17 10:20] LABS: ALBUMIN 2.4 g/dl (3.4-5.0); BLOOD UREA NITROGEN 4.4 mg/dL (7-18); MAGNESIUM 2.1 mg/dL (1.8-2.4)
[2021-05-17 10:23] LABS: CREATININE 0.4 mg/dL (0.55-1.3)
[2021-05-17 10:25] LABS: BILIRUBIN,TOTAL 0.5 mg/dL (0.2-1); TOT PROT 5.5 g/dl (6.4-8.2)
[2021-05-17] MEDS ORDERED: INSULIN SLIDING SCALE (NOVOLOG) 1 VIAL SQ ONE (11:09)
[2021-05-17] MEDS ORDERED: POTASSIUM CHLORIDE TABS 20 MEQ TABLET.ER (FP) PO ONE (11:25)
[2021-05-17] MEDS: PARoxetine HCL 20 MG TABLET PO SCH (21:35)
[2021-05-17] MEDS ORDERED: INSULIN (LEVEMIR) 100 UNITS/ML UNITS SQ SCH (22:00)
[2021-05-18] MEDS: ONDANSETRON 4 MG/2 ML VIAL IVPUSH PRN (01:30)
[2021-05-18] MEDS: LORazepam 1 MG TABLET PO PRN ×3 (04:13→18:43)
[2021-05-18] MEDS ORDERED: INSULIN (LEVEMIR) 100 UNITS/ML UNITS SQ SCH ×3 (07:00→22:00)
[2021-05-18] MEDS: INSULIN SLIDING SCALE (NOVOLOG) 1 VIAL SQ SCH ×4 (07:41→21:43)
[2021-05-18 09:33] LABS: HEMATOCRIT 32.4 % (32.4-45.2); HEMOGLOBIN 10.4 GM/dL (10.7-15.3); MCH 29.8 pg (25.7-33.7); MCHC 32.1 g/dl (32.0-36.0); MEAN CELL VOLUME 92.8 fl (80-96); MEAN PLT VOLUME 9.5 fl (7.5-11.1); PLATELET COUNT 185 10^3/uL (134-434); RBC 3.49 M/mm3 (3.60-5.2); RDW 14.1 % (11.6-15.6); WHITE BLOOD COUNT 6.7 K/mm3 (4.0-10.0)
[2021-05-18] MEDS: PANTOPRAZOLE 40 MG TABLET PO SCH (10:16)
[2021-05-18] MEDS: ENOXAPARIN NA (PORCINE) 40 MG/0.4 ML DISP.SYRIN SQ SCH (10:16)
[2021-05-18] MEDS ORDERED: INSULIN SLIDING SCALE (NOVOLOG) 1 VIAL SQ ONE (10:22)
[2021-05-18 11:15] LABS: ANISOCYTOSIS 0; MACROCYTOSIS 0; PLATELET ESTIMATE NORMAL
[2021-05-18] MEDS: PARoxetine HCL 20 MG TABLET PO SCH (21:44)
[2021-05-19] MEDS: LORazepam 1 MG TABLET PO PRN ×2 (03:40→10:18)
[2021-05-19] MEDS: INSULIN SLIDING SCALE (NOVOLOG) 1 VIAL SQ SCH ×2 (06:22→10:22)
[2021-05-19 09:11] LABS: HEMATOCRIT 32.1 % (32.4-45.2); HEMOGLOBIN 10.7 GM/dL (10.7-15.3); MCH 30.6 pg (25.7-33.7); MCHC 33.2 g/dl (32.0-36.0); MEAN CELL VOLUME 92.3 fl (80-96); MEAN PLT VOLUME 9.1 fl (7.5-11.1); PLATELET COUNT 209 10^3/uL (134-434); RBC 3.48 M/mm3 (3.60-5.2); RDW 14.5 % (11.6-15.6); WHITE BLOOD COUNT 7.5 K/mm3 (4.0-10.0)
[2021-05-19 09:29] LABS: ALBUMIN 2.6 g/dl (3.4-5.0); CALCIUM 8.9 mg/dL (8.5-10.1)
[2021-05-19 09:30] LABS: BLOOD UREA NITROGEN 4.2 mg/dL (7-18); MAGNESIUM 2.1 mg/dL (1.8-2.4)
[2021-05-19 09:32] LABS: CREATININE 0.6 mg/dL (0.55-1.3)
[2021-05-19 09:34] LABS: BILIRUBIN,TOTAL 0.3 mg/dL (0.2-1)
[2021-05-19 10:00] LABS: ANISOCYTOSIS 0; HELMET CELLS 0; HOWELL-JOLLY BODIES 0; MACROCYTOSIS 0; OVALOCYTE 0; PLATELET ESTIMATE NORMAL; ROULEAU 0; SICKELED CELLS 0; TARGET CELLS 0; TEAR DROP CELLS 0; TOXIC GRANULATION 0
[2021-05-19] MEDS: ENOXAPARIN NA (PORCINE) 40 MG/0.4 ML DISP.SYRIN SQ SCH (10:18)
[2021-05-19] MEDS: PANTOPRAZOLE 40 MG TABLET PO SCH (10:18)
[2021-05-19 14:14] VITALS: BP 122/60; PULSE 75; TEMP 98.5
[2021-05-19 19:21] LABS: ALBUMIN 2.7 g/dl (3.4-5.0); BILIRUBIN,TOTAL 0.5 mg/dL (0.2-1); BLOOD UREA NITROGEN 4.8 mg/dL (7-18); CREATININE 0.5 mg/dL (0.55-1.3); MAGNESIUM 2.5 mg/dL (1.8-2.4)
== END 2021-05-19 16:05 | disposition home health service (06) | DRG 420 ==
LOC: JER 02:29 → JERBED 04:30 → JICU 05:54 → J5S 05-15 19:32
PROVIDERS: ADMIT Internal Medicine Pulmonary Disease; ATTEND Nurse Practitioner Acute Care
DX: E11.10 Type 2 diabetes mellitus with ketoacidosis without coma (principal); G93.41 Metabolic encephalopathy; N17.9 Acute kidney failure, unspecified; L03.317 Cellulitis of buttock; K21.9 Gastro-esophageal reflux disease without esophagitis; F41.9 Anxiety disorder, unspecified; E86.0 Dehydration
CPT/HCPCS: 36415; 71045-TC-FY; 74018-TC-FY; 80048; 80053; 80307; 81003; 82010; 82550; 82803; 82962; 83036; 83735; 84100; 84484; 85025; 87086; 93005; 93010; 97116-GP; 97161-GP; 99285-25; C9803; J0131; U0003; U0005

== ENCOUNTER 2021-11-23 21:52 | Inpatient (IN) | payer OTHER ==
[2021-11-23] MEDS ORDERED: LACTATED RINGERS SOLUTION 1000 ML INFUS.BAG IV ONE ×2 (22:03→22:04)
[2021-11-23 22:35] LABS: VENOUS BASE EXCESS -28.9 mmol/L (-2-2); VENOUS O2 SATURATION 64.4 % (70-80); VENOUS PCO2 30.1 mmHg (38-52)
[2021-11-23 22:36] LABS: VENOUS PH 6.817 (7.310-7.410)
[2021-11-23 22:58] LABS: CHLORIDE 97 mmol/L (98-107); SODIUM 131 mmol/L (136-145)
[2021-11-23 23:00] LABS: BLOOD UREA NITROGEN 28.2 mg/dL (7-18); CALCIUM 9.1 mg/dL (8.5-10.1); CO2 6 mmol/L (21-32)
[2021-11-23] MEDS ORDERED: INSULIN REGULAR HUMAN 100 UNITS/ML *VIAL* (FOR IVP) IVPUSH ONE (23:01)
[2021-11-23 23:03] LABS: CREATININE 1.7 mg/dL (0.55-1.3)
[2021-11-23 23:04] LABS: SGOT/AST 23 U/L (15-37); SGPT/ALT 20 U/L (13-61)
[2021-11-23 23:05] LABS: BILIRUBIN,TOTAL 0.4 mg/dL (0.2-1)
[2021-11-23 23:06] LABS: ALK PHOS 147 U/L (45-117)
[2021-11-23] MEDS ORDERED: SODIUM CHLORIDE 0.45% 1,000 ML with SODIUM BICARBONATE 8.4% - 75 MEQ IV SCH ×2 (23:15→23:17)
[2021-11-23] MEDS ORDERED: INSULIN REGULAR 100 UNITS in SODIUM CHLORIDE 99 ML IVPB SCH (23:15)
[2021-11-23 23:16] LABS: ANION GAP 28 MMOL/L (8-16); GLUCOSE,RANDOM 991 mg/dL (74-106)
[2021-11-23 23:38] LABS: BASO % 0.6 % (0-2.0); HEMATOCRIT 42.2 % (32.4-45.2); HEMOGLOBIN 11.8 GM/dL (10.7-15.3); LYMPH % 7.3 % (8-40); MCH 27.8 pg (25.7-33.7); MEAN CELL VOLUME 99.5 fl (80-96); MEAN PLT VOLUME 9.8 fl (7.5-11.1); MONO % 9.2 % (3.8-10.2); NEUT % 82.9 % (42.8-82.8); PLATELET COUNT 339 10^3/uL (134-434); RBC 4.24 M/mm3 (3.60-5.2); RDW 17.1 % (11.6-15.6); WHITE BLOOD COUNT 21.2 K/mm3 (4.0-10.0)
[2021-11-23] MEDS ORDERED: INSULIN REGULAR HUMAN 100 UNITS/ML *VIAL IVPUSH ONE (23:57)
[2021-11-24 01:44] LABS: ARTERIAL BLD GAS O2 SATURATION 89.1 % (95-98); ARTERIAL BLOOD GAS BASE EXCESS -25.9 mmol/L (-2-2); ARTERIAL BLOOD GAS PO2 87.2 mmHg (80-100)
[2021-11-24 01:46] LABS: ALLENS TEST POSITIVE
[2021-11-24 01:47] LABS: ARTERIAL BLOOD GAS pH 6.927 (7.350-7.450)
[2021-11-24 02:20] LABS: ARTERIAL BLD GAS O2 SATURATION 93.3 % (95-98); ARTERIAL BLOOD GAS BASE EXCESS -20.9 mmol/L (-2-2); ARTERIAL BLOOD GAS PO2 90.7 mmHg (80-100)
[2021-11-24 02:25] LABS: ARTERIAL BLOOD GAS pH 7.068 (7.350-7.450)
[2021-11-24 02:55] LABS: CHLORIDE 113 mmol/L (98-107); SODIUM 142 mmol/L (136-145)
[2021-11-24 02:56] LABS: CALCIUM 8.8 mg/dL (8.5-10.1)
[2021-11-24 02:57] LABS: ANION GAP 20 MMOL/L (8-16); BLOOD UREA NITROGEN 24.3 mg/dL (7-18); CO2 9 mmol/L (21-32)
[2021-11-24 03:00] LABS: CREATININE 1.5 mg/dL (0.55-1.3)
[2021-11-24] MEDS ORDERED: [UNRECOGNIZED DRUG - OTHER] IV SCH (03:00)
[2021-11-24] MEDS ORDERED: SODIUM CHLORIDE IV SCH (03:00)
[2021-11-24] MEDS ORDERED: SODIUM BICARBONATE IV SCH (03:00)
[2021-11-24 03:07] LABS: EPI CELLS 16 /uL (0-25.1); HYALINE CASTS 1 /uL (0-3.1); PH,URINE 5.5 (5.0-8.0); URINE APPEARANCE CLEAR; URINE BACTERIA 509 /uL (0-1359); URINE BILIRUBIN NEGATIVE (NEGATIVE); URINE COLOR YELLOW; URINE GLUCOSE (UA) 3+ (NEGATIVE); URINE KETONE 4+ (NEGATIVE); URINE LEUK ESTERASE NEGATIVE (NEGATIVE); URINE NITRITE NEGATIVE (NEGATIVE); URINE PROTEIN 1+ (NEGATIVE); URINE RBC 2 /uL (0-23.9); URINE UROBILINOGEN 0.2 mg/dL (0.2-1.0); URINE WBC 18 /uL (0-25.8)
[2021-11-24 03:15] LABS: GLUCOSE,RANDOM 451 mg/dL (74-106)
[2021-11-24 04:21] LABS: VENOUS BASE EXCESS -16.8 mmol/L (-2-2); VENOUS O2 SATURATION 38.5 % (70-80); VENOUS PCO2 48.7 mmHg (38-52)
[2021-11-24 04:38] LABS: CALCIUM 8.7 mg/dL (8.5-10.1)
[2021-11-24 04:39] LABS: BLOOD UREA NITROGEN 23.4 mg/dL (7-18); VENOUS PH 7.053 (7.310-7.410)
[2021-11-24] MEDS ORDERED: SODIUM CHLORIDE 0.45% 1,000 ML with POTASSIUM CHLORIDE 20 MEQ IV SCH (04:40)
[2021-11-24 04:42] LABS: CREATININE 1.4 mg/dL (0.55-1.3)
[2021-11-24] MEDS ORDERED: SODIUM CHLORIDE 0.45%/POT 20 MEQ/1,000 ML INFUS.BAG IV SCH (05:01)
[2021-11-24] MEDS: KCL 10 MEQ IVPB 10 MEQ/100 ML INFUS.BAG IVPB SCH ×3 (05:13→08:38)
[2021-11-24] MEDS ORDERED: D5-1/2NS+20 MEQ KCL - 20 MEQ/1,000 ML INFUS.BAG IV SCH (05:30)
[2021-11-24 06:05] LABS: ARTERIAL BLD GAS O2 SATURATION 94.1 % (95-98); ARTERIAL BLOOD GAS BASE EXCESS -10.4 mmol/L (-2-2); ARTERIAL BLOOD GAS PO2 83.2 mmHg (80-100); ARTERIAL BLOOD GAS pH 7.214 (7.350-7.450)
[2021-11-24 06:07] LABS: ALLENS TEST POSITIVE
[2021-11-24 07:36] LABS: ARTERIAL BLD GAS O2 SATURATION 94.4 % (95-98); ARTERIAL BLOOD GAS BASE EXCESS -11.1 mmol/L (-2-2); ARTERIAL BLOOD GAS PO2 83.9 mmHg (80-100); ARTERIAL BLOOD GAS pH 7.227 (7.350-7.450)
[2021-11-24 08:12] LABS: ALLENS TEST POSITIVE
[2021-11-24 08:45] LABS: ALBUMIN 3.4 g/dl (3.4-5.0)
[2021-11-24 08:46] LABS: BLOOD UREA NITROGEN 21.5 mg/dL (7-18); CALCIUM 8.4 mg/dL (8.5-10.1)
[2021-11-24 08:48] LABS: CREATININE 1.3 mg/dL (0.55-1.3)
[2021-11-24 08:49] LABS: BILIRUBIN,TOTAL 0.2 mg/dL (0.2-1)
[2021-11-24 08:50] LABS: TOT PROT 6.6 g/dl (6.4-8.2)
[2021-11-24] MEDS ORDERED: MUPIROCIN 2% TOPICAL OINTMENT FOR DECOLONIZATION NS SCH (10:00)
[2021-11-24] MEDS ORDERED: PANTOPRAZOLE SODIUM 40 MG VIAL IVPUSH SCH (10:00)
[2021-11-24] MEDS ORDERED: ENOXAPARIN NA (PORCINE) 40 MG/0.4 ML DISP.SYRIN SQ SCH (10:00)
[2021-11-24] MEDS ORDERED: INSULIN (LEVEMIR) 100 UNITS/ML UNITS SQ SCH (10:00)
[2021-11-24 10:56] LABS: HEMATOCRIT 29.7 % (32.4-45.2); HEMOGLOBIN 9.9 GM/dL (10.7-15.3); MCH 28.6 pg (25.7-33.7); MCHC 33.2 g/dl (32.0-36.0); MEAN PLT VOLUME 9.3 fl (7.5-11.1); PLATELET COUNT 176 10^3/uL (134-434); RBC 3.46 M/mm3 (3.60-5.2); RDW 14.6 % (11.6-15.6); WHITE BLOOD COUNT 9.4 K/mm3 (4.0-10.0)
[2021-11-24 11:18] LABS: BLOOD UREA NITROGEN 19.5 mg/dL (7-18)
[2021-11-24 11:21] LABS: CREATININE 1.1 mg/dL (0.55-1.3)
[2021-11-24] MEDS ORDERED: INSULIN (NOVOLOG) ASPART 100 UNITS/ML 10ML VIAL SQ ONE (12:31)
[2021-11-24 16:04] LABS: BLOOD UREA NITROGEN 16.2 mg/dL (7-18); CALCIUM 8.3 mg/dL (8.5-10.1)
[2021-11-24 16:07] LABS: CREATININE 1.1 mg/dL (0.55-1.3)
[2021-11-24] MEDS ORDERED: INSULIN (NOVOLOG) ASPART 100 UNITS/ML 10ML VIAL SQ SCH (16:30)
[2021-11-24] MEDS ORDERED: ONDANSETRON 4 MG/2 ML VIAL IVPUSH ONE ×2 (17:47→23:15)
[2021-11-24] MEDS ORDERED: ONDANSETRON 4 MG/2 ML VIAL ONE (17:49)
[2021-11-24] MEDS ORDERED: TRIMETHOBENZAMIDE HCL 200MG/2ML INJ IM PRN (18:35)
[2021-11-24] MEDS ORDERED: guaiFENesin/D-M SUGAR-FREE/ACLHOL-FREE 118 ML BOTTLE PO PRN (18:40)
[2021-11-24] MEDS: LORazepam 2 MG/ML SDV VIAL IVPUSH PRN (18:49)
[2021-11-24 19:04] LABS: CALCIUM 8.6 mg/dL (8.5-10.1)
[2021-11-24 19:08] LABS: CREATININE 0.9 mg/dL (0.55-1.3)
[2021-11-24] MEDS ORDERED: INSULIN (NOVOLOG) ASPART 100 UNITS/ML 10ML VIAL ONE (21:59)
[2021-11-24] MEDS ORDERED: CHLORHEXIDINE GLUCONATE 4% CLEANSER FOR DECOLONIZATION TP SCH (22:00)
[2021-11-24 22:15] LABS: CALCIUM 8.8 mg/dL (8.5-10.1)
[2021-11-24 22:19] LABS: CREATININE 0.7 mg/dL (0.55-1.3)
[2021-11-25] MEDS: INSULIN (LEVEMIR) 100 UNITS/ML UNITS SQ SCH ×2 (00:34→07:03)
[2021-11-25] MEDS: INSULIN SLIDING SCALE (NOVOLOG) 1 VIAL SQ SCH ×5 (00:34→21:39)
[2021-11-25] MEDS: LORazepam 2 MG/ML SDV VIAL IVPUSH PRN ×3 (01:18→17:26)
[2021-11-25 09:04] LABS: HEMATOCRIT 30.8 % (32.4-45.2); HEMOGLOBIN 10.1 GM/dL (10.7-15.3); MCH 28.3 pg (25.7-33.7); MCHC 32.8 g/dl (32.0-36.0); MEAN CELL VOLUME 86.2 fl (80-96); MEAN PLT VOLUME 9.4 fl (7.5-11.1); PLATELET COUNT 169 10^3/uL (134-434); RBC 3.57 M/mm3 (3.60-5.2); WHITE BLOOD COUNT 8.3 K/mm3 (4.0-10.0)
[2021-11-25 09:25] LABS: CHLORIDE 113 mmol/L (98-107); SODIUM 143 mmol/L (136-145)
[2021-11-25 09:27] LABS: CALCIUM 8.7 mg/dL (8.5-10.1)
[2021-11-25 09:28] LABS: ALBUMIN 2.8 g/dl (3.4-5.0); ANION GAP 12 MMOL/L (8-16); BLOOD UREA NITROGEN 14.3 mg/dL (7-18); CO2 19 mmol/L (21-32); GLUCOSE,RANDOM 302 mg/dL (74-106)
[2021-11-25 09:31] LABS: CREATININE 0.8 mg/dL (0.55-1.3); SGOT/AST 13 U/L (15-37); SGPT/ALT 11 U/L (13-61)
[2021-11-25 09:32] LABS: BILIRUBIN,TOTAL 0.3 mg/dL (0.2-1)
[2021-11-25 09:34] LABS: ALK PHOS 75 U/L (45-117)
[2021-11-25] MEDS ORDERED: POTASSIUM PHOSPHATE 30 MM in DEXTROSE 5%-WATER - 500 ML IVPB ONE (11:00)
[2021-11-25] MEDS: ENOXAPARIN NA (PORCINE) 40 MG/0.4 ML DISP.SYRIN SQ SCH (11:24)
[2021-11-25] MEDS: PANTOPRAZOLE SODIUM 40 MG VIAL IVPUSH SCH (11:24)
[2021-11-25] MEDS: INSULIN (NOVOLOG) ASPART 100 UNITS/ML 10ML VIAL SQ SCH (17:34)
[2021-11-25] MEDS ORDERED: INSULIN (NOVOLOG) ASPART 100 UNITS/ML 10ML VIAL ONE (21:50)
[2021-11-26] MEDS: LORazepam 2 MG/ML SDV VIAL IVPUSH PRN ×3 (01:21→17:20)
[2021-11-26] MEDS: INSULIN SLIDING SCALE (NOVOLOG) 1 VIAL SQ SCH ×4 (06:56→22:37)
[2021-11-26] MEDS: INSULIN (LEVEMIR) 100 UNITS/ML UNITS SQ SCH (06:56)
[2021-11-26] MEDS: INSULIN (NOVOLOG) ASPART 100 UNITS/ML 10ML VIAL SQ SCH ×3 (06:56→18:07)
[2021-11-26 08:32] LABS: HEMATOCRIT 30.5 % (32.4-45.2); HEMOGLOBIN 10.1 GM/dL (10.7-15.3); MCH 28.3 pg (25.7-33.7); MCHC 33.1 g/dl (32.0-36.0); MEAN CELL VOLUME 85.6 fl (80-96); MEAN PLT VOLUME 9.6 fl (7.5-11.1); PLATELET COUNT 151 10^3/uL (134-434); RBC 3.56 M/mm3 (3.60-5.2); WHITE BLOOD COUNT 7.1 K/mm3 (4.0-10.0)
[2021-11-26 09:00] LABS: CHLORIDE 107 mmol/L (98-107); SODIUM 139 mmol/L (136-145)
[2021-11-26 09:06] LABS: CALCIUM 8.4 mg/dL (8.5-10.1)
[2021-11-26 09:07] LABS: ANION GAP 12 MMOL/L (8-16); BLOOD UREA NITROGEN 13.3 mg/dL (7-18); CO2 20 mmol/L (21-32); MAGNESIUM 1.8 mg/dL (1.8-2.4)
[2021-11-26 09:10] LABS: CREATININE 0.7 mg/dL (0.55-1.3); PHOSPHOROUS 1.9 mg/dL (2.5-4.9)
[2021-11-26 09:14] LABS: GLUCOSE,RANDOM 404 mg/dL (74-106)
[2021-11-26] MEDS ORDERED: POTASSIUM PHOSPHATE 45 MM in SODIUM CHLORIDE 500 ML IVPB ONE (10:19)
[2021-11-26] MEDS: PANTOPRAZOLE SODIUM 40 MG VIAL IVPUSH SCH (11:06)
[2021-11-26] MEDS: ENOXAPARIN NA (PORCINE) 40 MG/0.4 ML DISP.SYRIN SQ SCH (11:06)
[2021-11-26] MEDS ORDERED: ACETAMINOPHEN 325 MG TABLET (FP) PO PRN (21:01)
[2021-11-27] MEDS: LORazepam 1 MG TABLET PO PRN ×3 (02:08→18:30)
[2021-11-27] MEDS: INSULIN SLIDING SCALE (NOVOLOG) 1 VIAL SQ SCH ×4 (06:42→21:35)
[2021-11-27] MEDS: INSULIN (NOVOLOG) ASPART 100 UNITS/ML 10ML VIAL SQ SCH ×3 (06:51→17:04)
[2021-11-27] MEDS: INSULIN (LEVEMIR) 100 UNITS/ML UNITS SQ SCH (06:51)
[2021-11-27] MEDS: PANTOPRAZOLE 40 MG TABLET PO SCH (09:39)
[2021-11-27] MEDS: ENOXAPARIN NA (PORCINE) 40 MG/0.4 ML DISP.SYRIN SQ SCH (09:40)
[2021-11-27] MEDS ORDERED: POTASSIUM CHLORIDE 20 MEQ in LACTATED RINGERS SOLUTION 1,000 ML IV ONE (13:30)
[2021-11-27 16:10] VITALS: BMI 24.1
[2021-11-27 16:23] LABS: BASO % 0.7 % (0-2.0); EOS % 1.5 % (0-4.5); HEMATOCRIT 33.7 % (32.4-45.2); HEMOGLOBIN 11.2 GM/dL (10.7-15.3); LYMPH % 26.9 % (8-40); MCH 27.5 pg (25.7-33.7); MCHC 33.2 g/dl (32.0-36.0); MEAN PLT VOLUME 9.5 fl (7.5-11.1); MONO % 7.7 % (3.8-10.2); NEUT % 63.2 % (42.8-82.8); PLATELET COUNT 156 10^3/uL (134-434); RBC 4.06 M/mm3 (3.60-5.2); RDW 14.7 % (11.6-15.6); WHITE BLOOD COUNT 5.5 K/mm3 (4.0-10.0)
[2021-11-27 16:37] LABS: ALBUMIN 3.2 g/dl (3.4-5.0); CALCIUM 9.2 mg/dL (8.5-10.1)
[2021-11-27 16:39] LABS: BLOOD UREA NITROGEN 10.4 mg/dL (7-18)
[2021-11-27 16:42] LABS: CREATININE 0.5 mg/dL (0.55-1.3)
[2021-11-27 16:43] LABS: BILIRUBIN,TOTAL 0.4 mg/dL (0.2-1); TOT PROT 6.6 g/dl (6.4-8.2)
[2021-11-27] MEDS: PARoxetine HCL 20 MG TABLET PO SCH (21:36)
[2021-11-28] MEDS: LORazepam 1 MG TABLET PO PRN ×3 (01:29→22:19)
[2021-11-28] MEDS ORDERED: INSULIN (LEVEMIR) 100 UNITS/ML UNITS SQ ONE ×2 (06:10→06:28)
[2021-11-28] MEDS: INSULIN SLIDING SCALE (NOVOLOG) 1 VIAL SQ SCH ×4 (06:14→22:18)
[2021-11-28] MEDS: INSULIN (NOVOLOG) ASPART 100 UNITS/ML 10ML VIAL SQ SCH ×3 (06:15→17:24)
[2021-11-28] MEDS: INSULIN (LEVEMIR) 100 UNITS/ML UNITS SQ SCH ×2 (06:15→22:17)
[2021-11-28] MEDS: PANTOPRAZOLE 40 MG TABLET PO SCH (09:45)
[2021-11-28] MEDS: ENOXAPARIN NA (PORCINE) 40 MG/0.4 ML DISP.SYRIN SQ SCH (09:45)
[2021-11-28] MEDS: FUROSEMIDE 20 MG TABLET (FP) PO SCH (10:15)
[2021-11-28 12:10] LABS: BLOOD UREA NITROGEN 10.6 mg/dL (7-18); CALCIUM 9.5 mg/dL (8.5-10.1); MAGNESIUM 2.1 mg/dL (1.8-2.4)
[2021-11-28 12:12] LABS: CREATININE 0.6 mg/dL (0.55-1.3)
[2021-11-28] MEDS ORDERED: INSULIN (LEVEMIR) 100 UNITS/ML UNITS SQ SCH (22:00)
[2021-11-28] MEDS ORDERED: INSULIN (NOVOLOG) ASPART 100 UNITS/ML 10ML VIAL ONE (22:15)
[2021-11-28] MEDS: PARoxetine HCL 20 MG TABLET PO SCH (22:18)
[2021-11-29] MEDS: INSULIN (NOVOLOG) ASPART 100 UNITS/ML 10ML VIAL SQ SCH ×2 (07:41→11:08)
[2021-11-29] MEDS: INSULIN SLIDING SCALE (NOVOLOG) 1 VIAL SQ SCH ×2 (07:41→12:23)
[2021-11-29] MEDS: INSULIN (LEVEMIR) 100 UNITS/ML UNITS SQ SCH (07:41)
[2021-11-29] MEDS: LORazepam 1 MG TABLET PO PRN (09:50)
[2021-11-29] MEDS: PANTOPRAZOLE 40 MG TABLET PO SCH (09:51)
[2021-11-29] MEDS: FUROSEMIDE 20 MG TABLET (FP) PO SCH (09:51)
[2021-11-29] MEDS: ENOXAPARIN NA (PORCINE) 40 MG/0.4 ML DISP.SYRIN SQ SCH (09:51)
[2021-11-29 14:52] LABS: BLOOD UREA NITROGEN 10.2 mg/dL (7-18); CALCIUM 9.7 mg/dL (8.5-10.1)
[2021-11-29 14:58] LABS: CREATININE 0.6 mg/dL (0.55-1.3)
[2021-11-29 15:41] VITALS: PULSE 71; TEMP 98.7
[2021-11-29 15:49] VITALS: BP 112/74; RESP 18
== END 2021-11-29 17:21 | disposition home or self-care (01) | DRG 420 ==
LOC: JER 21:52 → JERBED 23:06 → JICU 11-24 04:25 → J8W 11-24 19:52
PROVIDERS: ADMIT Internal Medicine Pulmonary Disease
DX: E11.10 Type 2 diabetes mellitus with ketoacidosis without coma (principal); N17.9 Acute kidney failure, unspecified; K21.9 Gastro-esophageal reflux disease without esophagitis; E83.39 Other disorders of phosphorus metabolism; D72.829 Elevated white blood cell count, unspecified; K58.9 Irritable bowel syndrome, unspecified; G89.29 Other chronic pain; E86.0 Dehydration; E11.65 Type 2 diabetes mellitus with hyperglycemia; J45.909 Unspecified asthma, uncomplicated; K90.0 Celiac disease; F41.8 Other specified anxiety disorders; D64.9 Anemia, unspecified; I12.9 Hypertensive chronic kidney disease with stage 1 through stage 4 chronic kidney disease, or unspecified chronic kidney disease; E11.22 Type 2 diabetes mellitus with diabetic chronic kidney disease; N18.9 Chronic kidney disease, unspecified; Z91.14 Patient's other noncompliance with medication regimen
CPT/HCPCS: 0241U-QW; 36415; 36600; 71045-TC-FY; 76705-TC; 80048; 80053; 81003; 82010; 82803; 82962; 83036; 83735; 84100; 84703; 85025; 85027; 87086; 93005; 93010; 99291; 99292; J3480

== ENCOUNTER 2024-01-03 18:55 | Inpatient (IN) | payer OTHER ==
[2024-01-03] MEDS ORDERED: ONDANSETRON 4 MG/2 ML VIAL ONE (19:39)
[2024-01-03] MEDS ORDERED: ACETAMINOPHEN INJECTION 100 ML ONE (19:40)
[2024-01-03] MEDS: SODIUM CHLORIDE 1,000 ML IV STA ×2 (19:55→22:10)
[2024-01-03] MEDS: ONDANSETRON 4 MG/2 ML VIAL IVPUSH ONE (19:55)
[2024-01-03] MEDS: ACETAMINOPHEN 1000 MG/100 ML BAG IVPB ONE (20:00)
[2024-01-03 20:09] LABS: HEMATOCRIT 44.2 % (32.4-45.2); HEMOGLOBIN 14.6 G/dL (10.7-15.3); MCH 29.5 pg (25.7-33.7); MCHC 32.9 g/dl (32.0-36.0); MEAN CELL VOLUME 89.5 fl (80-96); MEAN PLT VOLUME 10.1 fl (7.5-11.1); PLATELET COUNT 402.4 10^3/uL (134-434); RBC 4.94 10^6/uL (3.60-5.2); RDW 16.5 % (11.6-15.6)
[2024-01-03 20:17] LABS: INR 1.06 (0.83-1.09); PROTHROMBIN TIME (PATIENT) 12.1 SEC (9.7-13.0)
[2024-01-03 20:19] LABS: ACTIVATED PTT 29.4 SECONDS (25.2-36.5)
[2024-01-03 20:20] LABS: PLATELET ESTIMATE ADEQUATE
[2024-01-03 20:28] LABS: ALBUMIN 5.1 g/dl (3.4-5.0); BILIRUBIN,TOTAL 0.4 mg/dl (0.2-1); CALCIUM 10.7 mg/dl (8.5-10.1); MAGNESIUM 2.4 mg/dL (1.8-2.4); PHOSPHOROUS 1.6 (2.5-4.9); TOT PROT 8.5 g/dl (6.4-8.2)
[2024-01-03 20:34] LABS: POTASSIUM 2.8 mmol/L (3.5-5.1)
[2024-01-03] MEDS ORDERED: KCL 10 MEQ IVPB 20 MEQ/200 ML INFUS.BAG IVPB ONE (20:41)
[2024-01-03] MEDS ORDERED: POTASSIUM CHLORIDE ORAL LIQUID 20 MEQ/15 ML ONE (20:41)
[2024-01-03] MEDS: KCL 10 MEQ IVPB 10 MEQ/100 ML INFUS.BAG IVPB SCH (20:45)
[2024-01-03] MEDS: POTASSIUM CHLORIDE ORAL LIQUID 20 MEQ/15 ML PO ONE (20:50)
[2024-01-03 21:03] LABS: VENOUS BASE EXCESS -20.3 mmol/L (-2-2); VENOUS O2 SATURATION 56.5 % (70-80); VENOUS PCO2 23.3 mmHg (38-52)
[2024-01-03 21:04] LABS: VENOUS PH 7.112 (7.310-7.410)
[2024-01-03] MEDS: SODIUM CHLORIDE 1,000 ML with POTASSIUM CHLORIDE 10 MEQ IV STA (23:30)
[2024-01-03] MEDS: SODIUM CHLORIDE 1,000 ML with POTASSIUM CHLORIDE 20 MEQ IV STA (23:45)
[2024-01-04 01:43] LABS: CHLORIDE 117 mmol/L (98-107); POTASSIUM 4.5 mmol/L (3.5-5.1); SODIUM 141 mmol/L (136-145)
[2024-01-04 01:46] LABS: ANION GAP 18 mmol/L (4-13); BLOOD UREA NITROGEN 16.7 mg/dL (7-18); CO2 7 mmol/L (21-32)
[2024-01-04 01:49] LABS: SGOT/AST 6 U/L (15-37); SGPT/ALT 9 U/L (13-61)
[2024-01-04 01:50] LABS: BILIRUBIN,TOTAL 0.3 mg/dL (0.2-1)
[2024-01-04 01:55] LABS: ALBUMIN 3.5 g/dl (3.4-5.0); ALK PHOS 98 U/L (45-117); CALCIUM 8.5 mg/dL (8.5-10.1); GLUCOSE,RANDOM 518 mg/dL (74-106); TOT PROT 6.3 g/dl (6.4-8.2)
[2024-01-04] MEDS: MUPIROCIN 2% TOPICAL OINTMENT FOR DECOLONIZATION NS SCH (01:59)
[2024-01-04] MEDS ORDERED: DEXTROSE 50%-WATER - 25 GM/50 ML VIAL IVPUSH PRN (01:59)
[2024-01-04] MEDS: INSULIN REGULAR HUMAN 100 UNITS/ML *VIAL* (FOR IVP) IVPUSH ONE (02:00)
[2024-01-04] MEDS: CEFTRIAXONE 1 GM in DEXTROSE 5%-WATER - 50 ML IVPB SCH (02:08)
[2024-01-04] MEDS: NAPH,MB-DB/K PH,MBDB POWDER PACKET PO ONE (02:08)
[2024-01-04] MEDS: INSULIN REGULAR 100 UNITS in SODIUM CHLORIDE 99 ML IVPB SCH (02:34)
[2024-01-04] MEDS: SODIUM CHLORIDE 1,000 ML with POTASSIUM CHLORIDE 20 MEQ IV STA (02:49)
[2024-01-04] MEDS: VANCOMYCIN/WATER FOR INJ (PEG) 1,000 MG/200 ML BAG IVPB ONE (03:12)
[2024-01-04 06:42] LABS: BASO % 1.3 % (0-2.0); HEMATOCRIT 36.6 % (32.4-45.2); HEMOGLOBIN 11.4 GM/dL (10.7-15.3); LYMPH % 16.1 % (8-40); MCH 29.2 pg (25.7-33.7); MCHC 31.2 g/dl (32.0-36.0); MEAN CELL VOLUME 93.9 fl (80-96); MEAN PLT VOLUME 9.4 fl (7.5-11.1); MONO % 5.1 % (3.8-10.2); NEUT % 77.5 % (42.8-82.8); PLATELET COUNT 357 10^3/uL (134-434); RDW 15.9 % (11.6-15.6); WHITE BLOOD COUNT 10.5 K/mm3 (4.0-10.0)
[2024-01-04 07:12] LABS: CHLORIDE 120 mmol/L (98-107); POTASSIUM 3.4 mmol/L (3.5-5.1); SODIUM 143 mmol/L (136-145)
[2024-01-04 07:14] LABS: CALCIUM 9.1 mg/dL (8.5-10.1)
[2024-01-04 07:15] LABS: ALBUMIN 3.6 g/dl (3.4-5.0); ANION GAP 14 mmol/L (4-13); BLOOD UREA NITROGEN 15.6 mg/dL (7-18); CO2 10 mmol/L (21-32)
[2024-01-04 07:18] LABS: SGOT/AST 4 U/L (15-37); SGPT/ALT 9 U/L (13-61)
[2024-01-04 07:19] LABS: BILIRUBIN,TOTAL 0.3 mg/dL (0.2-1); TOT PROT 6.9 g/dl (6.4-8.2)
[2024-01-04 07:21] LABS: ALK PHOS 102 U/L (45-117)
[2024-01-04 07:22] LABS: GLUCOSE,RANDOM 435 mg/dL (74-106)
[2024-01-04] MEDS: D5-1/2NS+20 MEQ KCL - 20 MEQ/1,000 ML INFUS.BAG IV SCH (08:28)
[2024-01-04] MEDS: ENOXAPARIN NA (PORCINE) 30 MG/0.3 ML DISP.SYRIN SQ SCH (09:31)
[2024-01-04] MEDS: PANTOPRAZOLE SODIUM 40 MG VIAL IVPUSH SCH (09:31)
[2024-01-04] MEDS ORDERED: FAMOTIDINE 20 MG/50 ML IVPB 20 MG/50 ML MG IVPB SCH (10:00)
[2024-01-04] MEDS: KCL 10 MEQ IVPB 10 MEQ/100 ML INFUS.BAG IVPB SCH ×2 (10:39→19:12)
[2024-01-04 10:45] LABS: CHLORIDE 125 mmol/L (98-107); SODIUM 146 mmol/L (136-145)
[2024-01-04 10:47] LABS: POTASSIUM 2.3 mmol/L (3.5-5.1)
[2024-01-04 10:51] LABS: CALCIUM 9.4 mg/dL (8.5-10.1)
[2024-01-04 10:52] LABS: ANION GAP 6 mmol/L (4-13); BLOOD UREA NITROGEN 13.2 mg/dL (7-18); CO2 15 mmol/L (21-32); GLUCOSE,RANDOM 163 mg/dL (74-106)
[2024-01-04 10:55] LABS: CREATININE 0.9 mg/dL (0.55-1.3)
[2024-01-04] MEDS: POTASSIUM CHLORIDE ORAL LIQUID 20 MEQ/15 ML PO ONE (10:56)
[2024-01-04] MEDS ORDERED: MAGNESIUM SULF 50% (8.12 MEQ/2 ML-1 GM VIAL) ONE (11:08)
[2024-01-04] MEDS: MAGNESIUM 1GM/D5W - 1 GM/100 ML IVPB IVPB ONE (11:40)
[2024-01-04 12:01] LABS: CHLORIDE 122 mmol/L (98-107); SODIUM 145 mmol/L (136-145)
[2024-01-04 12:05] LABS: ALBUMIN 4.1 g/dl (3.4-5.0); ANION GAP 6 mmol/L (4-13); BLOOD UREA NITROGEN 14.7 mg/dL (7-18); CALCIUM 9.9 mg/dL (8.5-10.1); CO2 17 mmol/L (21-32); GLUCOSE,RANDOM 158 mg/dL (74-106)
[2024-01-04 12:08] LABS: CREATININE 0.9 mg/dL (0.55-1.3); SGOT/AST < 3 U/L (15-37); SGPT/ALT 10 U/L (13-61)
[2024-01-04 12:10] LABS: BILIRUBIN,TOTAL 0.3 mg/dL (0.2-1); TOT PROT 8.1 g/dl (6.4-8.2)
[2024-01-04 12:11] LABS: ALK PHOS 115 U/L (45-117)
[2024-01-04 14:30] LABS: POTASSIUM 4.7 mmol/L (3.5-5.1)
[2024-01-04 14:31] LABS: CALCIUM 9.3 mg/dL (8.5-10.1)
[2024-01-04 14:32] LABS: BLOOD UREA NITROGEN 12.4 mg/dL (7-18)
[2024-01-04 14:35] LABS: CREATININE 0.8 mg/dL (0.55-1.3)
[2024-01-04] MEDS: PIPERACILLIN/TAZOB 3.375 GM 3.375 GM in DEXTROSE 5%-WATER - 50 ML IVPB SCH (16:12)
[2024-01-04 18:38] LABS: POTASSIUM 3.2 mmol/L (3.5-5.1)
[2024-01-04 19:01] LABS: CALCIUM 8.9 mg/dL (8.5-10.1)
[2024-01-04 19:02] LABS: BLOOD UREA NITROGEN 11.2 mg/dL (7-18)
[2024-01-04 19:05] LABS: CREATININE 0.8 mg/dL (0.55-1.3)
[2024-01-04] MEDS ORDERED: ONDANSETRON 4 MG/2 ML VIAL ONE (20:22)
[2024-01-04] MEDS: CHLORHEXIDINE GLUCONATE 4% CLEANSER FOR DECOLONIZATION TP SCH (22:33)
[2024-01-04 22:48] LABS: POTASSIUM 4.2 mmol/L (3.5-5.1)
[2024-01-04 22:49] LABS: CALCIUM 8.6 mg/dL (8.5-10.1)
[2024-01-04 22:50] LABS: BLOOD UREA NITROGEN 10.1 mg/dL (7-18)
[2024-01-04] MEDS: ONDANSETRON 4 MG/2 ML VIAL IVPB ONE (22:51)
[2024-01-04 22:53] LABS: CREATININE 0.7 mg/dL (0.55-1.3)
[2024-01-05] MEDS: KCL 10 MEQ IVPB 10 MEQ/100 ML INFUS.BAG IVPB SCH (00:25)
[2024-01-05 03:10] LABS: CHLORIDE 119 mmol/L (98-107); POTASSIUM 3.9 mmol/L (3.5-5.1); SODIUM 140 mmol/L (136-145)
[2024-01-05 03:12] LABS: ANION GAP 6 mmol/L (4-13); CALCIUM 8.7 mg/dL (8.5-10.1); CO2 15 mmol/L (21-32); GLUCOSE,RANDOM 135 mg/dL (74-106)
[2024-01-05 03:15] LABS: CREATININE 0.6 mg/dL (0.55-1.3); SGOT/AST 9 U/L (15-37); SGPT/ALT 8 U/L (13-61)
[2024-01-05 03:17] LABS: BILIRUBIN,TOTAL 0.3 mg/dL (0.2-1)
[2024-01-05 03:27] LABS: ALBUMIN 3.1 g/dl (3.4-5.0); ALK PHOS 80 U/L (45-117); PHOSPHOROUS 0.6 mg/dL (2.5-4.9); TOT PROT 5.8 g/dl (6.4-8.2)
[2024-01-05] MEDS: NAPH,MB-DB/K PH,MBDB POWDER PACKET PO ONE (03:42)
[2024-01-05] MEDS: ONDANSETRON 4 MG/2 ML VIAL IVPUSH PRN (03:59)
[2024-01-05] MEDS: POTASSIUM PHOSPHATE 30 MM in SODIUM CHLORIDE 250 ML IVPB ONE (04:07)
[2024-01-05] MEDS ORDERED: ACETAMINOPHEN INJECTION 100 ML ONE (05:25)
[2024-01-05] MEDS: ACETAMINOPHEN 1000 MG/100 ML BAG IVPB ONE (07:03)
[2024-01-05] MEDS: INSULIN (LEVEMIR) 100 UNITS/ML UNITS SQ ONE (07:08)
[2024-01-05] MEDS: FENTANYL CITRATE/PF 50 MCG/ML VIAL IVPUSH ONE (07:14)
[2024-01-05] MEDS ORDERED: INSULIN (LEVEMIR) 100 UNITS/ML UNITS SQ ONE (08:01)
[2024-01-05] MEDS ORDERED: ALPRAZolam 1 MG TABLET PO SCH (10:00)
[2024-01-05 10:41] LABS: BASO % 0.9 % (0-2.0); EOS % 1.9 % (0-4.5); HEMATOCRIT 28.5 % (32.4-45.2); HEMOGLOBIN 9.4 GM/dL (10.7-15.3); LYMPH % 23.5 % (8-40); MCH 29.2 pg (25.7-33.7); MCHC 33.1 g/dl (32.0-36.0); MEAN CELL VOLUME 88.2 fl (80-96); MEAN PLT VOLUME 9.1 fl (7.5-11.1); MONO % 6.4 % (3.8-10.2); NEUT % 67.3 % (42.8-82.8); PLATELET COUNT 265 10^3/uL (134-434); RBC 3.23 M/mm3 (3.60-5.2); RDW 15.5 % (11.6-15.6); WHITE BLOOD COUNT 7.2 K/mm3 (4.0-10.0)
[2024-01-05 10:58] LABS: ALBUMIN 3.1 g/dl (3.4-5.0); CALCIUM 8.3 mg/dL (8.5-10.1)
[2024-01-05 10:59] LABS: MAGNESIUM 1.8 mg/dL (1.8-2.4)
[2024-01-05 11:02] LABS: CREATININE 0.7 mg/dL (0.55-1.3); PHOSPHOROUS 3.3 mg/dL (2.5-4.9)
[2024-01-05 11:03] LABS: BILIRUBIN,TOTAL 0.4 mg/dL (0.2-1); TOT PROT 5.8 g/dl (6.4-8.2)
[2024-01-05] MEDS: D5-LR+20 MEQ KCL - 20 MEQ/1,000 ML INFUS.BAG IV SCH ×2 (18:46→18:52)
[2024-01-05] MEDS ORDERED: INSULIN ASPART SLIDING SCALE (NOVOLOG) 1 VIAL SQ ONE (19:41)
[2024-01-05] MEDS: ALPRAZolam 1 MG TABLET PO SCH (22:13)
[2024-01-05] MEDS: ACETAMINOPHEN 325 MG TABLET (FP) PO SCH (22:13)
[2024-01-05 23:18] LABS: POTASSIUM 3.4 mmol/L (3.5-5.1)
[2024-01-05 23:19] LABS: CALCIUM 8.7 mg/dL (8.5-10.1)
[2024-01-05 23:20] LABS: BLOOD UREA NITROGEN 3.7 mg/dL (7-18); MAGNESIUM 1.8 mg/dL (1.8-2.4)
[2024-01-05 23:23] LABS: CREATININE 0.6 mg/dL (0.55-1.3); PHOSPHOROUS 1.9 mg/dL (2.5-4.9)
[2024-01-05] MEDS: oxyCODONE HCL 5 MG TABLET PO SCH (23:53)
[2024-01-06] MEDS: MAGNESIUM 2GM/50ML STERILE WATER IVPB IVPB ONE (03:37)
[2024-01-06] MEDS: POTASSIUM PHOSPHATE 30 MM in DEXTROSE 5%-WATER - 250 ML IVPB ONE (04:32)
[2024-01-06 07:03] LABS: EOS % 6.2 % (0-4.5); HEMATOCRIT 28.4 % (32.4-45.2); HEMOGLOBIN 9.6 GM/dL (10.7-15.3); LYMPH % 34.4 % (8-40); MCH 29.9 pg (25.7-33.7); MCHC 33.6 g/dl (32.0-36.0); MEAN CELL VOLUME 88.8 fl (80-96); MEAN PLT VOLUME 9.3 fl (7.5-11.1); MONO % 9.3 % (3.8-10.2); NEUT % 48.1 % (42.8-82.8); PLATELET COUNT 246 10^3/uL (134-434); RDW 15.4 % (11.6-15.6); WHITE BLOOD COUNT 5.2 K/mm3 (4.0-10.0)
[2024-01-06 07:22] LABS: CHLORIDE 115 mmol/L (98-107); POTASSIUM 4.1 mmol/L (3.5-5.1); SODIUM 139 mmol/L (136-145)
[2024-01-06 07:24] LABS: ANION GAP 9 mmol/L (4-13); CALCIUM 8.8 mg/dL (8.5-10.1); CO2 15 mmol/L (21-32)
[2024-01-06 07:25] LABS: GLUCOSE,RANDOM 113 mg/dL (74-106)
[2024-01-06 07:28] LABS: CREATININE 0.6 mg/dL (0.55-1.3); PHOSPHOROUS 2.5 mg/dL (2.5-4.9)
[2024-01-06 07:35] LABS: BLOOD UREA NITROGEN 2.6 mg/dL (7-18)
[2024-01-06] MEDS: MAG HYDROX/AL HYDROX/SIMETH 30 ML UNIT-DOSE CUP PO ONE (09:46)
[2024-01-06] MEDS: LACTATED RINGERS SOLUTION 1,000 ML/1,000 ML INFUS.BAG IV SCH (09:46)
[2024-01-06 15:57] VITALS: BMI 21.7
[2024-01-06] MEDS: INSULIN (NOVOLOG) ASPART 100 UNITS/ML 10ML VIAL SQ SCH (17:01)
[2024-01-06] MEDS: INSULIN ASPART SLIDING SCALE (NOVOLOG) 1 VIAL SQ SCH (17:12)
[2024-01-06] MEDS ORDERED: ONDANSETRON 4 MG/2 ML VIAL IVPUSH PRN (19:56)
[2024-01-06] MEDS: ALPRAZolam 1 MG TABLET PO PRN (20:39)
[2024-01-06] MEDS: KCL 10 MEQ IVPB 10 MEQ/100 ML INFUS.BAG IVPB SCH (20:46)
[2024-01-06] MEDS: SODIUM CHLORIDE 500 ML IV STA (21:22)
[2024-01-06] MEDS: PIPERACILLIN/TAZOB 3.375 GM 3.375 GM in DEXTROSE 5%-WATER - 50 ML IVPB SCH (21:42)
[2024-01-06] MEDS: oxyCODONE HCL 5 MG TABLET PO SCH (21:43)
[2024-01-06] MEDS: INSULIN (LEVEMIR) 100 UNITS/ML UNITS SQ SCH (22:27)
[2024-01-07] MEDS: LACTATED RINGERS SOLUTION 1,000 ML/1,000 ML INFUS.BAG IV SCH (00:38)
[2024-01-07] MEDS: ACETAMINOPHEN 325 MG TABLET (FP) PO PRN (01:41)
[2024-01-07] MEDS: morphine SULFATE 4 MG/ML VIAL IVPUSH PRN (03:10)
[2024-01-07] MEDS: PANTOPRAZOLE SODIUM 40 MG VIAL IVPUSH SCH (09:02)
[2024-01-07] MEDS: ENOXAPARIN NA (PORCINE) 30 MG/0.3 ML DISP.SYRIN SQ SCH (09:13)
[2024-01-07 10:11] LABS: BASO % 1.3 % (0-2.0); HEMATOCRIT 29.2 % (32.4-45.2); HEMOGLOBIN 9.6 GM/dL (10.7-15.3); LYMPH % 34.8 % (8-40); MCH 29.7 pg (25.7-33.7); MONO % 6.7 % (3.8-10.2); NEUT % 53.2 % (42.8-82.8); PLATELET COUNT 211 10^3/uL (134-434); RBC 3.25 M/mm3 (3.60-5.2); RDW 15.8 % (11.6-15.6); WHITE BLOOD COUNT 6.8 K/mm3 (4.0-10.0)
[2024-01-07 10:26] LABS: POTASSIUM 3.7 mmol/L (3.5-5.1)
[2024-01-07 10:27] LABS: BLOOD UREA NITROGEN 5.7 mg/dL (7-18); CALCIUM 8.8 mg/dL (8.5-10.1)
[2024-01-07 10:28] LABS: ALBUMIN 2.9 g/dl (3.4-5.0); MAGNESIUM 2.3 mg/dL (1.8-2.4)
[2024-01-07 10:31] LABS: CREATININE 0.9 mg/dL (0.55-1.3)
[2024-01-07 10:33] LABS: BILIRUBIN,TOTAL 0.3 mg/dL (0.2-1); TOT PROT 5.5 g/dl (6.4-8.2)
[2024-01-07] MEDS ORDERED: SUMAtriptan SUCCINATE 25 MG TABLET PO PRN (11:23)
[2024-01-07] MEDS: NAPH,MB-DB/K PH,MBDB POWDER PACKET PO SCH (11:50)
[2024-01-07] MEDS: oxyCODONE HCL 5 MG TABLET PO PRN (11:51)
[2024-01-07] MEDS: INSULIN DRIP - PLEASE ORDER UNDER SETS NR ONE (18:19)
[2024-01-07] MEDS ORDERED: SIMETHICONE 80 MG TAB.CHEW (FP) PO PRN (18:27)
[2024-01-07] MEDS: PARoxetine HCL 10 MG TABLET PO SCH (21:14)
[2024-01-07] MEDS ORDERED: PARoxetine HCL 10 MG TABLET PO SCH (22:00)
[2024-01-08 09:46] VITALS: RESP 18
[2024-01-08 13:12] LABS: POTASSIUM 3.3 mmol/L (3.5-5.1)
[2024-01-08 13:15] LABS: ALBUMIN 2.9 g/dl (3.4-5.0); BLOOD UREA NITROGEN 3.2 mg/dL (7-18); CALCIUM 8.8 mg/dL (8.5-10.1)
[2024-01-08 13:16] LABS: MAGNESIUM 2.2 mg/dL (1.8-2.4)
[2024-01-08 13:18] LABS: CREATININE 0.6 mg/dL (0.55-1.3); PHOSPHOROUS 2.6 mg/dL (2.5-4.9)
[2024-01-08 13:20] LABS: BILIRUBIN,TOTAL 0.5 mg/dL (0.2-1); TOT PROT 5.4 g/dl (6.4-8.2)
[2024-01-08] MEDS ORDERED: NAPH,MB-DB/K PH,MBDB POWDER PACKET PO ONE (13:59)
[2024-01-08] MEDS: NAPH,MB-DB/K PH,MBDB POWDER PACKET PO SCH (15:06)
[2024-01-08 15:41] VITALS: BP 107/63; PULSE 75; TEMP 98.8
== END 2024-01-08 15:18 | disposition home or self-care (01) | DRG 420 ==
LOC: FER 18:55 → JICU 01-04 00:30 → J5S 01-06 19:32 → J6W 01-08 10:53
PROVIDERS: ADMIT Internal Medicine; ATTEND Internal Medicine
DX: E11.10 Type 2 diabetes mellitus with ketoacidosis without coma (principal); K61.1 Rectal abscess; K21.9 Gastro-esophageal reflux disease without esophagitis; F41.9 Anxiety disorder, unspecified; Z79.4 Long term (current) use of insulin; E87.6 Hypokalemia; E11.40 Type 2 diabetes mellitus with diabetic neuropathy, unspecified; G89.29 Other chronic pain
CPT/HCPCS: 0241U-QW; 36415; 74177-TC; 80048; 80053; 81003; 81015; 82010; 82533; 82803; 82962; 83036; 83605; 83690; 83735; 84100; 84703; 85025; 85027; 85610; 85730; 86850; 86900; 86901; 87040; 87077; 87086; 93005; 93010; 97116-GP; 97161-GP; 99291; J0131; Q9967

== ENCOUNTER 2024-01-08 17:34 | Observation (INO) | payer OTHER ==
[2024-01-08] MEDS ORDERED: ONDANSETRON 4 MG/2 ML VIAL ONE (18:37)
[2024-01-08] MEDS: LACTATED RINGERS SOLUTION 1000 ML INFUS.BAG IV ONE ×2 (18:39→22:21)
[2024-01-08] MEDS: ONDANSETRON 4 MG/2 ML VIAL IVPUSH ONE (18:40)
[2024-01-08 18:50] LABS: BASO % 0.4 % (0-2.0); EOS % 3.8 % (0-4.5); LYMPH % 21.3 % (8-40); MCH 29.7 pg (25.7-33.7); MCHC 33.3 g/dl (32.0-36.0); MEAN CELL VOLUME 89.3 fl (80-96); MEAN PLT VOLUME 9.5 fl (7.5-11.1); MONO % 9.8 % (3.8-10.2); NEUT % 64.7 % (42.8-82.8); PLATELET COUNT 197 10^3/uL (134-434); RBC 3.69 M/mm3 (3.60-5.2); RDW 16.1 % (11.6-15.6); WHITE BLOOD COUNT 7.8 K/mm3 (4.0-10.0)
[2024-01-08 19:09] LABS: POTASSIUM 3.5 mmol/L (3.5-5.1)
[2024-01-08 19:12] LABS: CALCIUM 9.3 mg/dL (8.5-10.1); MAGNESIUM 2.2 mg/dL (1.8-2.4)
[2024-01-08 19:17] LABS: BILIRUBIN,TOTAL 0.4 mg/dL (0.2-1); CREATININE 0.7 mg/dL (0.55-1.3); TOT PROT 6.8 g/dl (6.4-8.2)
[2024-01-08 19:26] LABS: VENOUS BASE EXCESS -2.9 mmol/L (-2-2); VENOUS O2 SATURATION 74.6 % (70-80); VENOUS PCO2 38.9 mmHg (38-52); VENOUS PH 7.371 (7.310-7.410)
[2024-01-08 19:33] LABS: ALBUMIN 3.6 g/dl (3.4-5.0)
[2024-01-08 19:41] LABS: LACTIC ACID 2.7 mmol/L (0.4-2.0)
[2024-01-08 20:06] LABS: HIV INTERPRETATION NEGATIVE (NEGATIVE)
[2024-01-08 22:19] LABS: URINE APPEARANCE CLEAR; URINE BILIRUBIN NEGATIVE (NEGATIVE); URINE COLOR YELLOW; URINE GLUCOSE (UA) NEGATIVE (NEGATIVE); URINE KETONE NEGATIVE (NEGATIVE); URINE LEUK ESTERASE NEGATIVE (NEGATIVE); URINE NITRITE NEGATIVE (NEGATIVE); URINE PROTEIN TRACE (NEGATIVE); URINE UROBILINOGEN 0.2 mg/dL (0.2-1.0)
[2024-01-09] MEDS ORDERED: HYDROmorphone HCL CARPU-JECT 2 MG/1 ML DISP.SYRIN ONE (00:30)
[2024-01-09] MEDS: HYDROmorphone HCl 2 MG/ML VIAL IVPUSH ONE (00:49)
[2024-01-09] MEDS: LORazepam 2 MG/ML SDV VIAL IM ONE (01:56)
[2024-01-09] MEDS ORDERED: ONDANSETRON 4 MG/2 ML VIAL IVPUSH PRN (03:01)
[2024-01-09] MEDS: SODIUM CHLORIDE 1,000 ML IV SCH (03:41)
[2024-01-09] MEDS ORDERED: ACETAMINOPHEN INJECTION 100 ML ONE ×3 (06:48→19:46)
[2024-01-09] MEDS ORDERED: INSULIN (LEVEMIR) 100 UNITS/ML UNITS SQ SCH (08:00)
[2024-01-09] MEDS ORDERED: INSULIN ASPART SLIDING SCALE (NOVOLOG) 1 VIAL SQ ONE ×3 (08:41→16:36)
[2024-01-09] MEDS: INSULIN ASPART SLIDING SCALE (NOVOLOG) 1 VIAL SQ SCH (08:43)
[2024-01-09] MEDS: ENOXAPARIN NA (PORCINE) 40 MG/0.4 ML DISP.SYRIN SQ SCH (09:33)
[2024-01-09] MEDS: INSULIN (LEVEMIR) 100 UNITS/ML UNITS SQ SCH ×2 (09:56→10:44)
[2024-01-09] MEDS ORDERED: FOLIC ACID 1 MG TABLET (FP) ONE (10:46)
[2024-01-09] MEDS ORDERED: ALPRAZolam 1 MG TABLET ONE (11:05)
[2024-01-09] MEDS: ALPRAZolam 1 MG TABLET PO PRN (11:06)
[2024-01-09] MEDS: FOLIC ACID 1 MG TABLET (FP) PO SCH (11:07)
[2024-01-09] MEDS: ACETAMINOPHEN 1000 MG/100 ML BAG IVPB PRN (11:42)
[2024-01-09] MEDS: PARoxetine HCL 20 MG TABLET PO SCH (22:19)
[2024-01-10] MEDS ORDERED: ACETAMINOPHEN INJECTION 100 ML ONE ×4 (03:06→21:33)
[2024-01-10] MEDS ORDERED: METOCLOPRAMIDE HCL INJECTION 10 MG/2 ML VIAL ONE (03:45)
[2024-01-10] MEDS: METOCLOPRAMIDE HCL INJECTION 10 MG/2 ML VIAL IVPUSH PRN (03:53)
[2024-01-10] MEDS ORDERED: HYDROmorphone HCL CARPU-JECT 2 MG/1 ML DISP.SYRIN ONE (03:54)
[2024-01-10] MEDS: HYDROmorphone HCL CARPU-JECT 2 MG/1 ML DISP.SYRIN IVPUSH ONE (03:55)
[2024-01-10] MEDS: HYDROmorphone HCl 2 MG/ML VIAL IVPUSH ONE (04:04)
[2024-01-10] MEDS ORDERED: INSULIN ASPART SLIDING SCALE (NOVOLOG) 1 VIAL SQ ONE ×4 (07:51→21:14)
[2024-01-10] MEDS ORDERED: FOLIC ACID 1 MG TABLET (FP) ONE (09:27)
[2024-01-10] MEDS ORDERED: ENOXAPARIN NA (PORCINE) 40 MG/0.4 ML DISP.SYRIN SQ ONE (09:28)
[2024-01-10] MEDS ORDERED: DEXTROSE 50%-WATER 25 GM/50 ML DISP.SYRIN ONE (16:57)
[2024-01-10] MEDS ORDERED: PARoxetine HCL 10 MG TABLET ONE (21:14)
[2024-01-10] MEDS ORDERED: INSULIN (LEVEMIR) 100 UNITS/ML UNITS SQ ONE (21:14)
[2024-01-10] MEDS: INSULIN (LEVEMIR) 100 UNITS/ML UNITS SQ SCH (21:24)
[2024-01-11] MEDS: LORazepam 2 MG/ML SDV VIAL IVPUSH PRN (00:04)
[2024-01-11] MEDS ORDERED: ALBUTEROL SO4 HFA INHALER IH PRN (08:00)
[2024-01-11] MEDS ORDERED: ACETAMINOPHEN/CAFFEINE/BUTALBITAL 1 TAB PO PRN (08:00)
[2024-01-11] MEDS ORDERED: oxyCODONE HCL 5 MG TABLET PO PRN (08:06)
[2024-01-11] MEDS ORDERED: DOCUSATE SODIUM 100 MG CAPSULE (FP) PO PRN (08:06)
[2024-01-11] MEDS: POTASSIUM CHLORIDE TABS 20 MEQ TABLET.ER (FP) PO SCH (08:28)
[2024-01-11] MEDS: LACTATED RINGERS SOLUTION 1,000 ML/1,000 ML INFUS.BAG IV SCH ×2 (08:31→09:39)
[2024-01-11] MEDS: NAPH,MB-DB/K PH,MBDB POWDER PACKET PO SCH (08:31)
[2024-01-11] MEDS: PANTOPRAZOLE 40 MG TABLET PO SCH (09:31)
[2024-01-11 10:13] LABS: HEMOGLOBIN 8.9 GM/dL (10.7-15.3); MCH 29.6 pg (25.7-33.7); MCHC 31.8 g/dl (32.0-36.0); MEAN CELL VOLUME 93.2 fl (80-96); MEAN PLT VOLUME 9.9 fl (7.5-11.1); PLATELET COUNT 188 10^3/uL (134-434); RBC 3.01 M/mm3 (3.60-5.2); RDW 17.3 % (11.6-15.6); WHITE BLOOD COUNT 6.6 K/mm3 (4.0-10.0)
[2024-01-11 10:30] LABS: POTASSIUM 3.3 mmol/L (3.5-5.1)
[2024-01-11 10:32] LABS: CALCIUM 8.7 mg/dL (8.5-10.1)
[2024-01-11 10:33] LABS: BLOOD UREA NITROGEN 8.7 mg/dL (7-18); MAGNESIUM 1.9 mg/dL (1.8-2.4)
[2024-01-11 10:36] LABS: PHOSPHOROUS 2.4 mg/dL (2.5-4.9)
[2024-01-11 10:37] LABS: BILIRUBIN,TOTAL 0.2 mg/dL (0.2-1)
[2024-01-11 10:39] LABS: TOT PROT 5.6 g/dl (6.4-8.2)
[2024-01-11] MEDS: NAPH,MB-DB/K PH,MBDB POWDER PACKET PO ONE (12:21)
[2024-01-11] MEDS: LACTOBACILLUS ACIDOPHILUS 1 TABLET PO SCH (13:14)
[2024-01-11] MEDS: AMOX TR/POT CLAV 875MG/125MG TABLETS (FP) PO SCH (16:44)
[2024-01-11] MEDS ORDERED: DEXTROSE 50%-WATER - 25 GM/50 ML VIAL IVPUSH PRN (16:46)
[2024-01-11] MEDS: DEXTROSE 50%-WATER 25 GM/50 ML DISP.SYRIN IVPUSH ONE (17:03)
[2024-01-11 17:49] LABS: COCAINE, UR NEGATIVE (NEGATIVE); METHADONE, UR NEGATIVE (NEGATIVE); OPIATES, URI NEGATIVE (NEGATIVE); URINE BARBITURATES NEGATIVE (NEGATIVE); URINE BENZODIAZEPINES NEGATIVE (NEGATIVE)
[2024-01-11 17:50] LABS: PHENCYCLIDINE,URINE NEGATIVE (NEGATIVE)
[2024-01-11 18:00] LABS: URINE AMPHETAMINES NEGATIVE (NEGATIVE)
[2024-01-11] MEDS: INSULIN (LEVEMIR) 100 UNITS/ML UNITS SQ SCH (21:54)
[2024-01-12] MEDS: DEXTROSE 50%-WATER 25 GM/50 ML DISP.SYRIN IVPUSH PRN (06:43)
[2024-01-12 10:27] LABS: HEMATOCRIT 28.8 % (32.4-45.2); HEMOGLOBIN 9.2 GM/dL (10.7-15.3); MCH 29.6 pg (25.7-33.7); MEAN CELL VOLUME 92.6 fl (80-96); MEAN PLT VOLUME 9.2 fl (7.5-11.1); PLATELET COUNT 180 10^3/uL (134-434); RBC 3.11 M/mm3 (3.60-5.2); RDW 17.7 % (11.6-15.6); WHITE BLOOD COUNT 4.5 K/mm3 (4.0-10.0)
[2024-01-12 10:45] LABS: POTASSIUM 3.6 mmol/L (3.5-5.1)
[2024-01-12 10:48] LABS: ALBUMIN 2.9 g/dl (3.4-5.0); BLOOD UREA NITROGEN 5.1 mg/dL (7-18); CALCIUM 8.8 mg/dL (8.5-10.1)
[2024-01-12 10:50] LABS: CREATININE 0.9 mg/dL (0.55-1.3); PHOSPHOROUS 2.7 mg/dL (2.5-4.9)
[2024-01-12 10:52] LABS: TOT PROT 5.6 g/dl (6.4-8.2)
[2024-01-12 10:56] LABS: BILIRUBIN,TOTAL 0.2 mg/dL (0.2-1)
[2024-01-12] MEDS: SODIUM CHLORIDE 1,000 ML IV STA (11:39)
[2024-01-12] MEDS ORDERED: INSULIN ASPART SLIDING SCALE (NOVOLOG) 1 VIAL SQ ONE (11:45)
[2024-01-12 17:14] LABS: POTASSIUM 4.4 mmol/L (3.5-5.1)
[2024-01-12 17:16] LABS: BLOOD UREA NITROGEN 4.6 mg/dL (7-18); CALCIUM 8.6 mg/dL (8.5-10.1)
[2024-01-12 17:18] LABS: CREATININE 0.5 mg/dL (0.55-1.3)
[2024-01-13] MEDS: INSULIN (LEVEMIR) 100 UNITS/ML UNITS SQ SCH (06:21)
[2024-01-13 09:34] LABS: HEMATOCRIT 30.7 % (32.4-45.2); MCH 30.2 pg (25.7-33.7); MCHC 32.5 g/dl (32.0-36.0); MEAN PLT VOLUME 9.9 fl (7.5-11.1); PLATELET COUNT 168 10^3/uL (134-434); RDW 18.8 % (11.6-15.6)
[2024-01-13 09:58] LABS: POTASSIUM 3.3 mmol/L (3.5-5.1)
[2024-01-13 10:07] LABS: ALBUMIN 3.1 g/dl (3.4-5.0)
[2024-01-13 10:10] LABS: BLOOD UREA NITROGEN 9.8 mg/dL (7-18)
[2024-01-13 10:12] LABS: PHOSPHOROUS 2.2 mg/dL (2.5-4.9)
[2024-01-13 10:13] LABS: CREATININE 1.1 mg/dL (0.55-1.3)
[2024-01-13 10:14] LABS: BILIRUBIN,TOTAL 0.3 mg/dL (0.2-1)
[2024-01-13 10:15] LABS: TOT PROT 5.7 g/dl (6.4-8.2)
[2024-01-13 12:04] LABS: BASO % 1.1 % (0-2.0); EOS % 0.7 % (0-4.5); HEMATOCRIT 33.9 % (32.4-45.2); HEMOGLOBIN 11.1 GM/dL (10.7-15.3); LYMPH % 35.2 % (8-40); MCH 29.7 pg (25.7-33.7); MCHC 32.6 g/dl (32.0-36.0); MEAN CELL VOLUME 91.1 fl (80-96); MEAN PLT VOLUME 8.8 fl (7.5-11.1); PLATELET COUNT 207 10^3/uL (134-434); RBC 3.72 M/mm3 (3.60-5.2); RDW 17.9 % (11.6-15.6); WHITE BLOOD COUNT 7.4 K/mm3 (4.0-10.0)
[2024-01-13] MEDS: DEXTROSE 50%-WATER 25 GM/50 ML DISP.SYRIN IVPUSH ONE ×2 (12:20→18:08)
[2024-01-13 13:21] LABS: CHLORIDE 109 mmol/L (98-107); POTASSIUM 3.1 mmol/L (3.5-5.1); SODIUM 142 mmol/L (136-145)
[2024-01-13 13:26] LABS: ALBUMIN 3.4 g/dl (3.4-5.0); ANION GAP 6 mmol/L (4-13); CALCIUM 9.5 mg/dL (8.5-10.1); CO2 28 mmol/L (21-32)
[2024-01-13 13:28] LABS: MAGNESIUM 2.2 mg/dL (1.8-2.4)
[2024-01-13 13:30] LABS: CREATININE 0.6 mg/dL (0.55-1.3); SGOT/AST 12 U/L (15-37); SGPT/ALT 14 U/L (13-61)
[2024-01-13 13:32] LABS: ALK PHOS 91 U/L (45-117); TOT PROT 6.6 g/dl (6.4-8.2)
[2024-01-13 13:39] LABS: BILIRUBIN,TOTAL 0.4 mg/dL (0.2-1)
[2024-01-13 14:06] LABS: GLUCOSE,RANDOM 33 mg/dL (74-106)
[2024-01-13] MEDS: GABAPENTIN 100 MG CAPSULE PO SCH (14:43)
[2024-01-13] MEDS: LORazepam 1 MG TABLET PO PRN ×2 (14:50→23:11)
[2024-01-13 15:22] VITALS: BMI 22.3
[2024-01-13] MEDS: METOCLOPRAMIDE HCL 10 MG TABLET (FP) PO SCH (17:03)
[2024-01-13] MEDS: PARoxetine HCL 10 MG TABLET PO SCH (22:57)
[2024-01-13] MEDS: PRAMIPEXOLE DIHYDROCHLORIDE 0.125 MG TABLET PO SCH (22:59)
[2024-01-13] MEDS: DIVALPROEX NA *ER* EXTEND REL 250 MG TABLET.SA PO SCH (22:59)
[2024-01-14] MEDS ORDERED: MELATONIN 5 MG TABLETS PO PRN (02:51)
[2024-01-14] MEDS: INSULIN (LEVEMIR) 100 UNITS/ML UNITS SQ SCH (08:47)
[2024-01-14] MEDS: ACETAMINOPHEN 1000 MG/100 ML BAG IVPB PRN (09:12)
[2024-01-14 10:48] LABS: BASO % 1.1 % (0-2.0); EOS % 0.5 % (0-4.5); HEMATOCRIT 34.4 % (32.4-45.2); HEMOGLOBIN 11.1 GM/dL (10.7-15.3); LYMPH % 16.2 % (8-40); MCHC 32.3 g/dl (32.0-36.0); MEAN CELL VOLUME 92.8 fl (80-96); MEAN PLT VOLUME 9.1 fl (7.5-11.1); MONO % 12.3 % (3.8-10.2); NEUT % 69.9 % (42.8-82.8); PLATELET COUNT 207 10^3/uL (134-434); RBC 3.71 M/mm3 (3.60-5.2); RDW 18.4 % (11.6-15.6); WHITE BLOOD COUNT 8.1 K/mm3 (4.0-10.0)
[2024-01-14 11:08] LABS: POTASSIUM 3.5 mmol/L (3.5-5.1)
[2024-01-14 11:22] LABS: ALBUMIN 3.6 g/dl (3.4-5.0); BLOOD UREA NITROGEN 13.4 mg/dL (7-18); CALCIUM 9.7 mg/dL (8.5-10.1); MAGNESIUM 2.2 mg/dL (1.8-2.4); TOT PROT 6.5 g/dl (6.4-8.2)
[2024-01-14 11:24] LABS: BILIRUBIN,TOTAL 0.5 mg/dL (0.2-1)
[2024-01-14 11:25] LABS: PHOSPHOROUS 2.9 mg/dL (2.5-4.9)
[2024-01-14] MEDS: SODIUM CHLORIDE 1,000 ML IV SCH (11:42)
[2024-01-14] MEDS: ONDANSETRON *ODT* 4 MG TABLET SL PRN (14:37)
[2024-01-14 15:07] LABS: POTASSIUM 3.5 mmol/L (3.5-5.1)
[2024-01-14 15:09] LABS: ALBUMIN 3.4 g/dl (3.4-5.0); BLOOD UREA NITROGEN 12.3 mg/dL (7-18); CALCIUM 9.5 mg/dL (8.5-10.1)
[2024-01-14 15:12] LABS: CREATININE 0.7 mg/dL (0.55-1.3)
[2024-01-14] MEDS: ONDANSETRON 4 MG/2 ML VIAL IVPUSH PRN (15:12)
[2024-01-14 15:14] LABS: BILIRUBIN,TOTAL 0.6 mg/dL (0.2-1); TOT PROT 6.4 g/dl (6.4-8.2)
[2024-01-14 15:43] VITALS: RESP 18
[2024-01-14] MEDS: INSULIN ASPART SLIDING SCALE (NOVOLOG) 1 VIAL SQ SCH (16:04)
[2024-01-14] MEDS: ALPRAZolam 1 MG TABLET PO PRN (17:09)
[2024-01-15] MEDS: LIDOCAINE 5% TOPICAL PATCH TP ONE (01:58)
[2024-01-15] MEDS: oxyCODONE HCL 5 MG TABLET PO ONE ×2 (03:48→09:19)
[2024-01-15] MEDS: METOCLOPRAMIDE HCL 10 MG TABLET (FP) PO SCH (09:18)
[2024-01-15 10:09] LABS: CHLORIDE 106 mmol/L (98-107); POTASSIUM 4.6 mmol/L (3.5-5.1); SODIUM 136 mmol/L (136-145)
[2024-01-15 10:14] LABS: ALBUMIN 3.1 g/dl (3.4-5.0); ANION GAP 13 mmol/L (4-13); CALCIUM 8.9 mg/dL (8.5-10.1); CO2 17 mmol/L (21-32); MAGNESIUM 2.1 mg/dL (1.8-2.4)
[2024-01-15 10:17] LABS: CREATININE 0.7 mg/dL (0.55-1.3); SGOT/AST 5 U/L (15-37); SGPT/ALT 11 U/L (13-61)
[2024-01-15 10:18] LABS: BILIRUBIN,TOTAL 0.5 mg/dL (0.2-1)
[2024-01-15 10:20] LABS: ALK PHOS 83 U/L (45-117)
[2024-01-15 10:21] LABS: GLUCOSE,RANDOM 565 mg/dL (74-106)
[2024-01-15] MEDS: INSULIN (NOVOLOG) ASPART 100 UNITS/ML 10ML VIAL SQ ONE (11:53)
[2024-01-15 15:35] VITALS: BP 98/72; PULSE 84; TEMP 98.2
[2024-01-15] MEDS ORDERED: PRAMIPEXOLE DIHYDROCHLORIDE 0.125 MG TABLET PO SCH (22:00)
[2024-01-15] MEDS ORDERED: LIDOCAINE PATCH REMOVAL MC SCH (22:00)
== END 2024-01-15 15:10 | disposition home or self-care (01) ==
LOC: JER 17:34 → UNDOADMOB 01-09 01:45 → JERBED 01-09 01:45 → J8W 01-10 22:51 → JERBED 01-10 22:51 → J8W 01-11 15:09
PROVIDERS: ADMIT Internal Medicine; ATTEND Nurse Practitioner Family
PROC: 3E033GC Introduction of Other Therapeutic Substance into Peripheral Vein, Percutaneous Approach (ICD-10-PCS; principal; 2024-01-11)
PROC: 3E033NZ Introduction of Analgesics, Hypnotics, Sedatives into Peripheral Vein, Percutaneous Approach (ICD-10-PCS; 2024-01-11)
PROC: 3E013VG Introduction of Insulin into Subcutaneous Tissue, Percutaneous Approach (ICD-10-PCS; 2024-01-11)
PROC: 3E0337Z Introduction of Electrolytic and Water Balance Substance into Peripheral Vein, Percutaneous Approach (ICD-10-PCS; 2024-01-11)
DX: E11.65 Type 2 diabetes mellitus with hyperglycemia (principal); K21.9 Gastro-esophageal reflux disease without esophagitis; K61.1 Rectal abscess; G89.4 Chronic pain syndrome; N80.9 Endometriosis, unspecified; Z90.49 Acquired absence of other specified parts of digestive tract; N28.1 Cyst of kidney, acquired; Z87.19 Personal history of other diseases of the digestive system; G43.909 Migraine, unspecified, not intractable, without status migrainosus; F41.9 Anxiety disorder, unspecified; R19.7 Diarrhea, unspecified; Z29.89 Encounter for other specified prophylactic measures
CPT/HCPCS: 36415; 71045-TC-FY; 72158-TC; 74177-TC; 76705-TC; 78226-TC; 80048; 80053; 80307; 81003; 82010; 82607; 82710; 82728; 82803; 82962; 83540; 83550; 83605; 83631; 83735; 83993; 84100; 84443; 84703; 85025; 85027; 86140; 86803; 87209; 87324; 87389; 87449; 93005; 93010; 96361; 96372; 96374; 96375; 96376; 97116-GP; 97161-GP; 99285-25; A9537; G0378; J0131; Q0162